=== PATIENT | male | born 1955 | race Caucasian/White ===

== ENCOUNTER → 2022-02-01 | Outpatient (BNVA) | payer OTHER, SELFPAY | PROVIDERS: PCP Internal Medicine; Visit Provider Psychiatry & Neurology Psychiatry | DX: F32.4 Major depressive disorder, single episode, in partial remission (principal); E11.9 Type 2 diabetes mellitus without complications; G47.30 Sleep apnea, unspecified; Z71.89 Other specified counseling; Z99.89 Dependence on other enabling machines and devices | CPT/HCPCS: 90833 ==

== ENCOUNTER → 2022-05-20 11:04 | Outpatient (BNVA) | payer OTHER, SELFPAY | PROVIDERS: PCP Family Medicine; Visit Provider Psychiatry & Neurology Psychiatry | DX: Z13.89 Encounter for screening for other disorder (principal) ==

== ENCOUNTER → 2022-06-20 11:11 | Outpatient (BNVA) | payer OTHER, SELFPAY | PROVIDERS: PCP Family Medicine; Visit Provider Psychiatry & Neurology Psychiatry | DX: Z13.89 Encounter for screening for other disorder (principal) ==

== ENCOUNTER → 2022-07-23 10:34 | Outpatient (BNVA) | payer OTHER, SELFPAY | PROVIDERS: PCP Family Medicine; Visit Provider Psychiatry & Neurology Psychiatry | DX: Z13.89 Encounter for screening for other disorder (principal) ==

== ENCOUNTER → 2022-09-04 11:11 | Outpatient (BNVA) | payer OTHER, SELFPAY | PROVIDERS: PCP Family Medicine; Visit Provider Psychiatry & Neurology Psychiatry ==

== ENCOUNTER 2022-10-18 10:48 | Outpatient (AMB) | payer OTHER, SELFPAY ==
--- NOTE | 2022-10-18 11:23 | MHC.OFFVISPS ---
Intake Intake Visit Reasons: depression Allergies gabapentin Allergy (Verified 02/01/22 11:09) Rash aripiprazole [From Abilify] Adverse Reaction (Verified 06/06/21 10:55) Agitated bupropion [From Wellbutrin SR] Adverse Reaction (Verified 06/06/21 10:55) Agitated Medication List - Last Reconciled 10/27/22 by Giuseppe Gallegos MD atorvastatin 20 mg PO DAILY glipizide ER 10 mg PO BID lamotrigine 200 mg PO DAILY 90 days lisinopril 20 mg PO DAILY lorazepam 1 mg PO BEDTIME PRN modafinil 50 - 100 mg (0.5 - 1 x 100 mg) PO DAILY pioglitazone 15 mg PO QPM sildenafil 50 mg PO DIRECTED trazodone 100 - 200 mg (1 - 2 x 100 mg) PO BEDTIME HPI- Psychiatric Chief Complaint: depression HPI Narrative: Pts h recently was in hospice has sp stimulator seems to be somewhat helpful. Patient has been somewhat overwhelmed dealing with the loss of his partner patient estate. His 's sister had recently come and who had been somewhat verbally aggressive with him. Patient having trouble with flashbacks of recent events his dying when walking at the co-op and flashbacks of when he used to go there. He has the support of his brother with whom he has been talking regularly patient is future oriented he is using low-dose modafinil occasionally 50 mg which he finds helpful in addition to Lamictal no SI back and leg pain generally have improved with spinal stimulator Past Psychiatric History: THE PATIENT HAS A LONG HISTORY OF TREATMENT RESISTANT DEPRESSION HISTORY OF ADD CHRONIC DIFFICULTY TAKING CARE OF HIS OWN NEEDS HISTORY OF ALCOHOL ABUSE STRESSED TAKING CARE OF HIS LONG-TERM PARTNER Mental Status Exam Mental Status Exam Patient Appearance: Well Grooomed Patient Orientation: Person, Place, Time and Situation Level of Consciousness: Awake Patient Behavior: Appropriate and Anxious Mood Description: Depressed, Anxious and Apprehensive Affect Description: Appropriate, Constricted and Anxious Patient Cognition Impaired: No Ability to Follow Directions: Good Speech Pattern: Clear Memory Description: Intact Hallucinations: None Delusions: Not Present Thought Process: Intact and Goal Oriented Thought Content: positive for Goal Oriented, positive for Preoccupation, negative for Suicidal Ideation or negative for Homicidal Ideation Depressive Symptoms: Increased Anxiety, Increased Irritability and Difficulty Concentrating Judgement: Good Judgement and Insight: DENIES SI FEELING MORE SUPPORTED willing to discussed with hospice whether he can receive supportive therapy through hospice or recommendations for grief counseling Assessment and Plan Assessment & Plan (1) ADD (attention deficit disorder) without hyperactivity: Status: Acute Code(s): F98.8 - Other specified behavioral and emotional disorders with onset usually occurring in childhood and adolescence (2) Generalized anxiety disorder: Status: Acute Code(s): F41.1 - Generalized anxiety disorder (3) Major depressive disorder in partial remission: Status: Acute Code(s): F32.4 - Major depressive disorder, single episode, in partial remission Plan Discussed options for psychotherapy support caroline in future if needed has some lorazepam for panic and anxiety occasional use patient knows how to contact this medical technical writer discussed option of partial hospital and recommendations for outpatient counseling Patient with this appropriate grief Counseling and coordination of Care Pt. Self Management counseling: Breathing and Greif counseling Details-Self Mgmt counseling: General issues related to managing grief and loss urged limitation of alcohol use discussed potential for grief counseling manic group basis or individual potentially through hospice Medication management counseling: Effectiveness Diagnosis and Prognosis Counseling: Impact of diagnosis on life functions and Adequacy of current interventions Details: I spent [38] minutes reviewing the record, seeing the patient and documenting in the medical record. Counseling provided to the patient/caregiver as outlined below. Addressed patient/caregiver concerns regarding current medication regime including effective adherence. Addressed patient/caregiver concerns regarding diagnosis and prognosis including accuracy of diagnosis, prognosis over time, impact of diagnosis. Addressed patient/caregiver concerns regarding impact of recent stressors. [facility] Medical History (Updated 06/16/22 @ 19:57 by Giuseppe Gallegos MD) ADD (attention deficit disorder) without hyperactivity Controlled diabetes mellitus type II without complication Depression, major, severe recurrence Generalized anxiety disorder Hypertension Social History: Pts parents are used work at [employer] nature identifies as dye no children 1 brother in [place] Substance History: History of alcoholism denies on I'History of alcoholism denies ongoing drinking Coding Level of Care Code Est Pt Level 3 (19133) Therapy 30m w/E&M (86364) Diagnoses ADD (attention deficit disorder) without hyperactivity F98.8 Generalized anxiety disorder F41.1 Major depressive disorder in partial remission F32.4
== END 2022-10-18 15:09 | disposition home or self-care (01) ==
LOC: HO.HOP 10:48
PROVIDERS: PCP Family Medicine; Visit Provider Psychiatry & Neurology Psychiatry
DX: F98.8 Other specified behavioral and emotional disorders with onset usually occurring in childhood and adolescence (principal); F41.1 Generalized anxiety disorder; F32.4 Major depressive disorder, single episode, in partial remission
CPT/HCPCS: 90833; 99213

== ENCOUNTER → 2022-10-18 10:48 | Outpatient (BNVA) | payer OTHER, SELFPAY | PROVIDERS: PCP Family Medicine; Visit Provider Psychiatry & Neurology Psychiatry ==

== ENCOUNTER → 2022-12-13 12:53 | Outpatient (BNVA) | payer OTHER, SELFPAY | PROVIDERS: PCP Family Medicine; Visit Provider Psychiatry & Neurology Psychiatry ==

== ENCOUNTER 2023-01-22 08:55 | Outpatient (AMB) | payer MEDICARE, SELFPAY ==
--- NOTE | 2023-01-22 09:07 | A.SPINEOV_ITS ---
Intake Intake Visit Reasons: lower back sciatica pain Intake Note: Mr. Garcia is here today c/o low back pain and possible SCS removal. Client Services Administrator Required: No Allergies gabapentin Allergy (Verified 02/01/22 11:09) Rash aripiprazole [From Abilify] Adverse Reaction (Verified 06/06/21 10:55) Agitated bupropion [From Wellbutrin SR] Adverse Reaction (Verified 06/06/21 10:55) Agitated Assessment & Plan Assessment & Plan (1) Failed back syndrome: Code(s): M96.1 - Postlaminectomy syndrome, not elsewhere classified (2) Bilateral lumbar radiculopathy: Code(s): M54.16 - Radiculopathy, lumbar region Plan: Dear Colleague Thank you for referring Sandy Garcia to the office today with a chief complaint of persistent bilateral leg pain. HPI: This 67-year-old male had a previous synovial cyst resection and eventually a spinal cord stimulator placed for a bilateral leg pain. He returned to my new practice for a subsequent evaluation. The spinal cord stimulator is active but is not providing relief. He complains of severe pain down his legs without back pain with sitting and laying down. Walking is done without limitations. He denies weakness or up the active numbness. PMH: ADD, anxiety, depression, diabetes, sleep apnea, hypertension Social history: Nonsmoker. He just lost his partner Physical Exam: Pleasant male. Straight leg raise is negative bilaterally. There are no objective motor or sensory deficits. Radiological Studies: MRI done at [facility] on 05/24/2021 showed no significant nerve compression or stenosis. Impression/Plan: This 67-year-old male continues to complain of bilateral finn mbar radiculopathy despite placement of a spinal cord stimulator. We will repeat an MRI of the lumbar spine after which she will follow-up. We will also obtain flexion-extension x-rays at his next visit. Thank you for allowing me to participate in your patients care. total time spent was 30 minutes in counseling ,coordination of plan, personal review of imaging, surgical decision making and subsequent plan Praveen Barclay MD, PhD Spine Fellowship Trained Neurosurgeon Director, [facility] Orders: Orders MR lumbar spine wo con Today M54.16 - Radiculopathy, lumbar region, M96.1 - Postlaminectomy syndrome, not elsewhere classified Coding Level of Care Code New Pt Level 3 (16601) Diagnoses Failed back syndrome M96.1 Bilateral lumbar radiculopathy M54.16
== END 2023-01-22 09:22 | disposition home or self-care (01) ==
PROVIDERS: PCP Family Medicine; Visit Provider Neurological Surgery
DX: M96.1 Postlaminectomy syndrome, not elsewhere classified (principal); M54.16 Radiculopathy, lumbar region
CPT/HCPCS: 99203; 99213

== ENCOUNTER → 2023-01-22 08:55 | Outpatient (BNVA) | payer OTHER, SELFPAY | PROVIDERS: PCP Family Medicine; Visit Provider Neurological Surgery ==

== ENCOUNTER 2023-02-05 12:32 | Outpatient (REF) | payer MEDICARE, SELFPAY ==
--- NOTE | ~2023-02-05 | XR_ITS ---
EXAMINATION: XR LUMBOSACRAL SPINE WITH OBLIQUES CLINICAL INFORMATION: Low back pain. COMPARISON: None available. TECHNIQUE: 4 views including AP, neutral, flexion and extension of the lumbar spine. FINDINGS: Electrical stimulator pack overlying the right lower quadrant with leads projecting cephalad overlying the lower thoracic spine, with tips incompletely imaged. Facet arthritis at the [id number] lumbar spine. The bones are diffusely demineralized. Atherosclerotic aortic calcifications. Advanced degenerative changes in the imaged lower thoracic. Moderate multilevel lumbar spondylosis with multilevel loss of disc space height. Minimal grade 1 retrolisthesis of L2 on L3, L3 on L4, and L4 on L5. XR/XR lumbar spine 4V min IMPRESSION: Multilevel degenerative changes in the lumbar spine.
== END 2023-02-05 12:33 | disposition home or self-care (01) ==
LOC: HO.HOSX 12:32
PROVIDERS: Visit Provider Physician Assistant
DX: M96.1 Postlaminectomy syndrome, not elsewhere classified (principal); M54.50 Low back pain, unspecified
CPT/HCPCS: 72110; 99212

== ENCOUNTER 2023-02-05 14:56 | Outpatient (AMB) | payer MEDICARE, SELFPAY ==
--- NOTE | 2023-02-05 15:12 | A.SPINEOV_ITS ---
Intake Intake Visit Reasons: mri f/u with xrays Intake Note: Mr. Garcia is here today to discuss the results of his MRI and x-rays. [employer] Required: No Allergies gabapentin Allergy (Verified 02/01/22 11:09) Rash aripiprazole [From Abilify] Adverse Reaction (Verified 06/06/21 10:55) Agitated bupropion [From Wellbutrin SR] Adverse Reaction (Verified 06/06/21 10:55) Agitated Assessment & Plan Assessment & Plan (1) Failed back syndrome: Code(s): M96.1 - Postlaminectomy syndrome, not elsewhere classified Plan Mr. Garcia comes in today as a follow-up patient after being seen by Dr. Barclay for evaluation of continued bilateral leg pain despite spinal cord stimulator implantation and previous synovial cyst resection. Dr. Barclay previously requested that the patient have an MRI of the lumbar spine completed (which the patient decided to have done at [facility]) alongside a set of lumbar spine x-rays to review before being re-evaluated in the office. I reviewed the MRI completed at [place] which shows no changes from his previous MRI. No significant central canal stenosis, no significant exiting nerve root impingement. I did review 1 of the MRI readings which stated that he had significant facet arthropathy of the lumbar spine, but he reported he has atte mpted to address this before via injections without alleviation of symptoms. His x-rays of the lumbar spine completed today show no significant spondylolisthesis or other significant pathology. Unfortunately, Mr. Garcia continues to have persistent bilateral leg pain, which he reports is worse with sitting and lying down. Although he reports these restrictions, he does state he is able to walk multiple miles per day without issue. He reports no pain when exiting a vehicle, no pain when attempting Ese's test bilaterally, and has a negative straight leg raise bilaterally. He ambulates well, and rises from a seated position without difficulty. His sensation is grossly intact. No neurological deficits noted on exam. At this time I believe it is best that Mr. Garcia be referred to Pain Management for evaluation / suggestions for chronic pain relief, as there is no obvious neurosurgical intervention seen on imaging at this time. This patient's imaging and plan were reviewed with Dr. Barclay who is in agreement. Total amount of time spent in this visit was 35 minutes in discussion of symptoms, MRI / XR imaging results and subsequent plan of care Jeronimo Barclay MD,PhD [facility] Orders: Orders XR lumbar spine 4V min Today M54.50 - Low back pain, unspecified Referrals Pain Management Referral M96.1 - Postlaminectomy syndrome, not elsewhere classified Coding Level of Care Code Est Pt Level 4 (70138) Diagnoses Failed back syndrome M96.1
== END 2023-02-05 15:45 | disposition home or self-care (01) ==
PROVIDERS: PCP Family Medicine; Visit Provider Neurological Surgery
DX: M96.1 Postlaminectomy syndrome, not elsewhere classified (principal)
CPT/HCPCS: 99214

== ENCOUNTER 2023-02-14 13:45 | Outpatient (AMB) | payer OTHER, SELFPAY ==
--- NOTE | 2023-02-14 15:16 | A.OFFPSYCH_ITS ---
Intake Intake Visit Reasons: depression Allergies gabapentin Allergy (Verified 02/17/23 08:59) Rash aripiprazole [From Abilify] Adverse Reaction (Verified 02/17/23 08:59) Agitated bupropion [From Wellbutrin SR] Adverse Reaction (Verified 02/17/23 08:59) Agitated HPI- Psychiatric Chief Complaint: depression HPI Narrative: Patient seen psychiatric follow-up patient continue to interim abuse opiates previously prescribed for his partner. The patient states he has a use but at a relatively low dose denies oversedation we have discussed repeatedly the risk of ongoing psychological and physical addiction. The patient has agreed to start seeing a therapist Dr. Alexandria Bartholomew his mood is described as generally okay trying to integrate what is going on his life he has been fixing up the house in fortunately has become tied up with his misuse of prescribed opiates there is past history of alcohol abuse he denies thoughts of self-harm plans on overdose Past Psychiatric History: THE PATIENT HAS A LONG HISTORY OF TREATMENT RESISTANT DEPRESSION HISTORY OF ADD CHRONIC DIFFICULTY TAKING CARE OF HIS OWN NEEDS HISTORY OF ALCOHOL ABUSE STRESSED TAKING CARE OF HIS LONG-TERM PARTNER Mental Status Exam Mental Status Exam Patient Appearance: Well Grooomed Patient Orientation: Person, Place, Time and Situation Level of Consciousness: Awake Patient Behavior: Appropriate and Anxious Mood Description: Calm and Anxious Affect Description: Appropriate and Constricted Patient Cognition Impaired: No Ability to Follow Directions: Good Speech Pattern: Clear Memory Description: Intact Hallucinations: None Delusions: Not Present Thought Process: Intact and Goal Oriented Thought Content: positive for Goal Oriented, positive for Preoccupation, negative for Suicidal Ideation or negative for Homicidal Ideation Depressive Symptoms: Increased Anxiety, Increased Irritability, Low Self Esteem and Difficulty Concentrating Judgement: Good Judgement and Insight: Patient limited insight regarding his misuse of prescribed oral opiates denies any thoughts of self-harm was open to discussion regarding possible use of Suboxone and also the possible euphoric of the effects of using opiates patient has had longstanding treatment resistant depression Assessment and Plan Assessment & Plan (1) Chronic pain syndrome: Status: Acute Code(s): G89.4 - Chronic pain syndrome (2) Failed back syndrome: Status: Acute Code(s): M96.1 - Postlaminectomy syndrome, not elsewhere classified (3) Bilateral lumbar radiculopathy: Status: Acute Code(s): M54.16 - Radiculopathy, lumbar region (4) ADD (attention deficit disorder) without hyperactivity: Status: Acute Code(s): F98.8 - Other specified behavioral and emotional disorders with onset usually occurring in childhood and adolescence (5) Generalized anxiety disorder: Status: Acute Code(s): F41.1 - Generalized anxiety disorder (6) Major depressive disorder in partial remission: Status: Acute Code(s): F32.4 - Major depressive disorder, single episode, in partial remission (7) Sleep apnea with use of continuous positive airway pressure (CPAP): Status: Acute Code(s): G47.30 - Sleep apnea, unspecified Plan Patient with chronic difficulty with sleep chronic pain discussed use of low- dose amitriptyline continue Lamictal would benefit from having Narcan urged consideration of Suboxone patient denies any suicidal plan or intent consider Suboxone consult recovery mtgs risks of tolerance and dependance Medications: New amitriptyline 10 - 20 mg (1 - 2 x 10 mg) PO BEDTIME 60 tabs 1RF Discontinued modafinil Discontinued Reason: Doctor's Order 50 - 100 mg (0.5 - 1 x 100 mg) PO DAILY 30 tabs 1RF Counseling and coordination of Care Details-Self Mgmt counseling: Issues related to self management of emotional state dealing with grief issues which are mostly coming up now his memories are stimulated in appropriate manner Diagnosis and Prognosis Counseling: Problematic behaviors secondary to diagnosis and Adequacy of current interventions Details: I spent [38] minutes reviewing the record, seeing the patient and documenting in the medical record. Counseling provided to the patient/caregiver as outlined below. Addressed patient/caregiver concerns regarding current medication regime including effective adherence. Addressed patient/caregiver concerns regarding diagnosis and prognosis including accuracy of diagnosis, prognosis over time, impact of diagnosis. Addressed patient/caregiver concerns regarding impact of recent stressors. [facility] Medical History ADD (attention deficit disorder) without hyperactivity Generalized anxiety disorder Depression, major, severe recurrence Controlled diabetes mellitus type II without complication Hypertension Social History Alcohol intake: current Alcohol intake frequency: 3 or more drinks per day Alcohol type: beer Patient Tobacco Use Status: Former Tobacco user Tobacco use type: Cigarette Social History: Pts parents are used work at [employer] nature identifies as dye no children 1 brother in [place] Substance History: History of alcoholism denies on I'History of alcoholism denies ongoing drinking Coding Level of Care Code Est Pt Level 3 (34967) Therapy 30m w/E&M (03528) Diagnoses Chronic pain syndrome G89.4 Failed back syndrome M96.1 Bilateral lumbar radiculopathy M54.16 ADD (attention deficit disorder) without hyperactivity F98.8 Generalized anxiety disorder F41.1 Major depressive disorder in partial remission F32.4 Sleep apnea with use of continuous positive airway pressure (CPAP) G47.30
== END 2023-02-14 15:24 | disposition home or self-care (01) ==
LOC: HO.HOP 13:46
PROVIDERS: PCP Family Medicine; Visit Provider Psychiatry & Neurology Psychiatry
DX: G89.4 Chronic pain syndrome (principal); M96.1 Postlaminectomy syndrome, not elsewhere classified; M54.16 Radiculopathy, lumbar region; F98.8 Other specified behavioral and emotional disorders with onset usually occurring in childhood and adolescence; F41.1 Generalized anxiety disorder; F32.4 Major depressive disorder, single episode, in partial remission; G47.30 Sleep apnea, unspecified
CPT/HCPCS: 90833; 99213

== ENCOUNTER → 2023-02-14 13:45 | Outpatient (BNVA) | payer MEDICARE, SELFPAY | PROVIDERS: PCP Family Medicine; Visit Provider Psychiatry & Neurology Psychiatry ==

== ENCOUNTER 2023-02-17 08:27 | Outpatient (AMB) | payer MEDICARE, SELFPAY ==
--- NOTE | 2023-02-17 08:53 | A.OFFVIS_ITS ---
Intake Vital Signs 3 02/17/23 09:00 Height 5 ft 3 in Weight 187 lb 2 oz BMI 33.1 BP 149/85 H Blood Pressure Location Rt brachial Position Sitting Pulse 89 Pulse Source Pulse Oximeter Pulse Oximetry (%) 100 Oxygen Delivery Method Room Air Intake Visit Reasons: BILATERAL LEG PAIN/CONFIRMED Intake Note: Pain today 6/10 Fundraising Manager Required: No Accompanied by: Self / Same As Patient Allergies gabapentin Allergy (Verified 02/17/23 08:59) Rash aripiprazole [From Abilify] Adverse Reaction (Verified 02/17/23 08:59) Agitated bupropion [From Wellbutrin SR] Adverse Reaction (Verified 02/17/23 08:59) Agitated HPI BILATERAL LEG PAIN/CONFIRMED 2 HPI0 Details Patient is a pleasant 67 years old male with history of previous synovial cyst resection, laminectomy and [employer] SCS implant in 03/2022 presents today for evaluation of low back pain that radiates to his legs laterally. Patient reports his SCS device was reprogrammed 15 times last month without any improvement in his symptoms. It was surgically implanted by Dr. Barclay and patient is considering to remove it as it is active but not providing him any pain relief. His pain is worse at night while sleeping with laying down and with prolonged sitting or standing during the day. Patient rates his pain >8/10. Pain negatively affects his daily activities, functioning, sleep, social activities, mood and quality of life. He ambulates without any limitations and at times wakes in the middle of the night to walk to alleviate his leg symptoms. L:umbar spine MRI is noted below, patient reports he was deemed non surgical for any additional surgery at this time. Denies any fever, abdominal or groin pain, weight loss, weakness, bladder or bowel dysfunction or saddle anesthesia. Location Waist down, radiates to bilateral legs, worse on right leg Duration Chronic pain > 2 years Characteristics of symptom or complaint Aching, dull, heavy, tight, burning, aching, pinching, squeezing Aggravating or associated factors Sleeping, sitting, Relieving factors Standing, stretching, amitriptyline, pregabalin, gabapentin- no relief Treatment Back surgery, injections, lumbar SCS [employer] 03/2022-no relief [facility] Medical History (Updated 02/17/23 @ 10:02 by BELÉN Shah) ADD (attention deficit disorder) without hyperactivity Generalized anxiety disorder Depression, major, severe recurrence Controlled diabetes mellitus type II without complication Hypertension Social History (Updated 02/17/23 @ 09:02 by Dia Duarte) Alcohol intake: current Alcohol intake frequency: 3 or more drinks per day Alcohol type: beer Patient Tobacco Use Status: Former Tobacco user Tobacco use type: Cigarette Substance Use Type Other:: THC/CBD drops before bedtime Substance Use Frequency: Daily Review of Systems Const All systems reviewed & are unremarkable except as noted in HPI and below Physical Exam Vital Signs: Last Vital Signs Pulse 89 02/17/23 09:00 BP 149/85 H 02/17/23 09:00 Pulse Ox 100 02/17/23 09:00 Oxygen Delivery Method Room Air 02/17/23 09:00 BMI result Body Mass Index 33.1 General: Appears afebrile. Alert and oriented. Mood and affect appropriate. Follows and participates in conversation appropriately. Respiratory effort is unlabored. No cough. Able to transition from sit to stand unassisted. Ambulates with bilaterally normal heel strike and toe off. Back/Spine/Pelvis Other: Lumbar ROM limited. Can flex forward to 60-70 degrees and extend to 10-15 degrees before experiencing lumbar pain. No midline tenderness to palpation in the lumbar spine. Lumbar extension and flexion reproduces mild symptoms. Demonstrates 5/5 strength of quadriceps bilaterally as well as flexion/dorsiflexion of bilateral feet against resistance. 2+ pedal pulses bilaterally. Seated straight leg rise with dorsiflexion negative bilaterally. +1 patellar and diminished achilles reflexes bilaterally. Facet loading test positive bilaterally. No groin pain with I/E hip rotations. Valsalva maneuver negative. Back: other Cervical Spine: cervical muscular tenderness and No Cervical spine tenderness Thoracic/Lumbar Spine: thoracic and lumbar spine normal to inspection, Thoracic/lumbar spine scar(s) (x2, well healed), Lasegue's sign negative, straight leg raise negative bilaterally, pain with thoraco-lumbar ROM, paraspinal muscle tenderness, thoraco-lumbar ROM limited, No thoracic spinal tenderness and lumbar spinal tenderness Pelvis: buttock tenderness bilaterally and no sciatic notch tenderness Sacroiliac joints: bilaterally (Crow's reproduces lateral thigh pain, not back pain. Stinchfield neg.) tender to palpation; by compression of iliac crest and not passive hyperextion of lower ext Neuro General: moves all extremities and Normal light touch and pain sensation Results Reviewed Results Reviewed: XR LUMBOSACRAL SPINE WITH OBLIQUES 02/05/23 CLINICAL INFORMATION: Low back pain. FINDINGS: Electrical stimulator pack overlying the right lower quadrant with leads projecting cephalad overlying the lower thoracic spine, with tips incompletely imaged. Facet arthritis at the [id number] lumbar spine. The bones are diffusely demineralized. Atherosclerotic aortic calcifications. Advanced degenerative changes in the imaged lower thoracic. Moderate multilevel lumbar spondylosis with multilevel loss of disc space height. Minimal grade 1 retrolisthesis of L2 on L3, L3 on L4, and L4 on L5. IMPRESSION: Multilevel degenerative changes in the lumbar spine. Assessment & Plan Assessment & Plan (1) Failed back syndrome: Code(s): M96.1 - Postlaminectomy syndrome, not elsewhere classified (2) Bilateral lumbar radiculopathy: Code(s): M54.16 - Radiculopathy, lumbar region (3) Chronic pain syndrome: Code(s): G89.4 - Chronic pain syndrome (4) Lumbar degenerative disc disease: Code(s): M51.36 - Other intervertebral disc degeneration, lumbar region (5) Lumbar spondylosis: Code(s): M47.816 - Spondylosis without myelopathy or radiculopathy, lumbar region Plan 1. Follow up with Dr. Barclay to surgically remove [employer] as planned. 2. Schedule Caudal JOSE LUIS with catheter with sedation and fluoroscopy for failed back syndrome. We also discussed neuromodulation with ITDD pain pump trial. Expectations, risks and benefits were reviewed. Patient is aware he will be contacted to schedule this procedure. All questions were answered and the patient is in agreement of plan. Follow-up after injections and sooner as needed. Coding Level of Care Code New Pt Level 4 (64176) Diagnoses Failed back syndrome M96.1 Bilateral lumbar radiculopathy M54.16 Chronic pain syndrome G89.4 Lumbar degenerative disc disease M51.36 Lumbar spondylosis M47.816
[2023-02-17 09:00] VITALS: BP 149/85; PULSE 89; O2SAT 100; BMI 33.1
== END 2023-02-17 08:49 | disposition home or self-care (01) ==
PROVIDERS: PCP Family Medicine; Referring Provider Physician Assistant; Visit Provider Nurse Practitioner Family
DX: G89.4 Chronic pain syndrome (principal); M96.1 Postlaminectomy syndrome, not elsewhere classified; M54.16 Radiculopathy, lumbar region; M51.36 Other intervertebral disc degeneration, lumbar region; M47.816 Spondylosis without myelopathy or radiculopathy, lumbar region
CPT/HCPCS: 99204

== ENCOUNTER → 2023-02-17 08:27 | Outpatient (BNVA) | payer MEDICARE, SELFPAY | PROVIDERS: PCP Family Medicine; Referring Provider Physician Assistant; Visit Provider Nurse Practitioner Family | DX: M96.1 Postlaminectomy syndrome, not elsewhere classified (principal); M54.16 Radiculopathy, lumbar region; M51.36 Other intervertebral disc degeneration, lumbar region; M47.816 Spondylosis without myelopathy or radiculopathy, lumbar region; G89.4 Chronic pain syndrome | CPT/HCPCS: 99202 ==

== ENCOUNTER 2023-03-05 14:49 | Outpatient (AMB) | payer MEDICARE, SELFPAY ==
--- NOTE | 2023-03-05 15:09 | A.SPINEOV_ITS ---
Intake Intake Visit Reasons: spinal stimulator removal consult Allergies gabapentin Allergy (Verified 02/17/23 08:59) Rash aripiprazole [From Abilify] Adverse Reaction (Verified 02/17/23 08:59) Agitated bupropion [From Wellbutrin SR] Adverse Reaction (Verified 02/17/23 08:59) Agitated Assessment & Plan Assessment & Plan (1) Chronic pain syndrome: Code(s): G89.4 - Chronic pain syndrome (2) Failed back syndrome: Code(s): M96.1 - Postlaminectomy syndrome, not elsewhere classified (3) Spinal cord stimulator dysfunction: Code(s): T85.192A - Other mechanical complication of implanted electronic neurostimulator of spinal cord electrode (lead), initial encounter Plan Dear colleague, On 03/06/2023, I saw for follow-up came Radha. He suffering from failed back syndrome and had a spinal cord stimulator placed in the past. States that he turned his spinal cord stimulator off which improved his symptoms and therefore he wants to have the spinal cord stimulator removed. He discussed this with the pain management team and they agree. I scheduled him for May 22, 2023 to remove the implant. Praveen Barclay MD, PhD Sp[facility] Trained Neurosurgeon Director, [facility] Coding Level of Care Code Est Pt Level 2 (82998) Diagnoses Chronic pain syndrome G89.4 Failed back syndrome M96.1 Spinal cord stimulator dysfunction T85.192A
== END 2023-03-05 15:25 | disposition home or self-care (01) ==
PROVIDERS: PCP Family Medicine; Visit Provider Neurological Surgery
DX: G89.4 Chronic pain syndrome (principal); M96.1 Postlaminectomy syndrome, not elsewhere classified; T85.192A Other mechanical complication of implanted electronic neurostimulator of spinal cord electrode (lead), initial encounter
CPT/HCPCS: 99212

== ENCOUNTER → 2023-03-05 14:49 | Outpatient (BNVA) | payer MEDICARE, SELFPAY | PROVIDERS: PCP Family Medicine; Visit Provider Neurological Surgery | DX: T85.192A Other mechanical complication of implanted electronic neurostimulator of spinal cord electrode (lead), initial encounter (principal); M96.1 Postlaminectomy syndrome, not elsewhere classified; G89.4 Chronic pain syndrome | CPT/HCPCS: 99212 ==

== ENCOUNTER 2023-03-14 10:19 | Day surgery (SDC) | payer MEDICARE, SELFPAY ==
[2023-03-12 14:05] VITALS: BMI 33.1
--- NOTE | 2023-03-13 13:16 | P.CONAN_ITS ---
Documented by User: Felisha Smith NP 03/13/23 13:17 HPI - Anesthesia Eval Consult details Narrative: 67yo M for Caudal Epidural Steroid Injection with Catheter PMFSH Active Problems Active Problems: All Active Problems (Updated 03/05/23 @ 15:10 by Praveen Barclay MD, PhD) Spinal cord stimulator dysfunction (Acute) Lumbar spondylosis (Acute) Lumbar degenerative disc disease (Acute) Chronic pain syndrome (Acute) Lumbago (Acute) Failed back syndrome (Acute) Bilateral lumbar radiculopathy (Acute) ADD (attention deficit disorder) without hyperactivity (Acute) Generalized anxiety disorder (Acute) Major depressive disorder in partial remission (Acute) Depression, major, severe recurrence (Acute) Controlled diabetes mellitus type II without complication (Acute) Sleep apnea with use of continuous positive airway pressure (CPAP) (Acute) Hypertension (Acute) Past Medical History Medical History ADD (attention deficit disorder) without hyperactivity Generalized anxiety disorder Depression, major, severe recurrence Controlled diabetes mellitus type II without complication Hypertension Social History Social History Alcohol intake: current Alcohol intake frequency: 3 or more drinks per day Alcohol type: beer Patient Tobacco Use Status: Former Tobacco user Tobacco use type: Cigarette Use of substances other than those prescribed or required for medical reasons: Yes Are you DNR?: No Advance Directives: No Advance Directives Information Provided: Yes Meds Allergies Allergy/AdvReac Type Severity Reaction Status Date / Time gabapentin Allergy Rash Verified 02/17/23 08:59 aripiprazole [From Abilify] AdvReac Agitated Verified 02/17/23 08:59 bupropion AdvReac Agitated Verified 02/17/23 08:59 [From Wellbutrin SR] Home Medications Medication Instructions Recorded Confirmed Last Taken Type atorvastatin 20 mg tablet 20 mg PO DAILY 02/01/22 06/20/22 03/14/23 History glipizide 10 mg tablet, extended 10 mg PO BID 02/01/22 06/20/22 03/14/23 History release 24 hr pioglitazone 15 mg tablet 15 mg PO QPM 02/01/22 06/20/22 Unknown History sildenafil 100 mg tablet 50 mg PO DIRECTED 02/01/22 06/20/22 Unknown History lisinopril 40 mg tablet 40 mg PO DAILY 02/17/23 03/14/23 History Exam Height,Weight and Vital Signs: Height 5 ft 3 in Weight 84.822 kg Assessment and Plan Assessment Anesthesia Assessment: Chart Reviewed Documented by User: Nika Rodriguez MD 03/14/23 12:27 [facility] Past Medical History Medical History ADD (attention deficit disorder) without hyperactivity Generalized anxiety disorder Depression, major, severe recurrence Controlled diabetes mellitus type II without complication Hypertension Surgical History History of Problems with Anesthesia: No Social History Social History Alcohol intake: current Alcohol intake frequency: 3 or more drinks per day Alcohol type: beer Patient Tobacco Use Status: Former Tobacco user Tobacco use type: Cigarette Use of substances other than those prescribed or required for medical reasons: Yes Are you DNR?: No Advance Directives: No Advance Directives Information Provided: Yes Meds Allergies Allergy/AdvReac Type Severity Reaction Status Date / Time gabapentin Allergy Rash Verified 02/17/23 08:59 aripiprazole [From Abilify] AdvReac Agitated Verified 02/17/23 08:59 bupropion AdvReac Agitated Verified 02/17/23 08:59 [From Wellbutrin SR] Home Medications Medication Instructions Recorded Confirmed Last Taken Type atorvastatin 20 mg tablet 20 mg PO DAILY 02/01/22 06/20/22 03/14/23 History glipizide 10 mg tablet, extended 10 mg PO BID 02/01/22 06/20/22 03/14/23 History release 24 hr pioglitazone 15 mg tablet 15 mg PO QPM 02/01/22 06/20/22 Unknown History sildenafil 100 mg tablet 50 mg PO DIRECTED 02/01/22 06/20/22 Unknown History lisinopril 40 mg tablet 40 mg PO DAILY 02/17/23 03/14/23 History Exam Airway Mallampati Class: III TM Dist: >3cm Neck ROM: Full Loose/Missing/Broken Teeth: No Heart: RRR Lungs: CTA Assessment and Plan Assessment Anesthesia Assessment: Anesthesia Plan Discussed Final Anesthetic Review History of Problems with Anesthesia: No NPO: Yes ASA Class: III Final Preanesthetic Review: Meds/Allgs Chart Reviewed, Consent Obtained/Reviewed and Anes Risks/Benef Reviewed Patient Risk: Intermediate Procedure Risk: Low Anesthetic Plan Anesthetic Plan: MAC: Disposition: Standard PACU
--- NOTE | ~2023-03-14 | FL_ITS ---
EXAMINATION: XR FLUOROSCOPY WITH IMAGES CLINICAL INFORMATION: Caudal injection. COMPARISON: None available. TECHNIQUE: Fluoroscopy Supervised By: Dr. Ramon Goldberg. Fluoroscopy Time: 0.1 minute. Cumulative Dose: 12.23 mGy. DAP: 3.336 Gycm2. Images: 2. FINDINGS: Image demonstrates needle projecting over the lower sacral spinal canal FL/FL guidance in OR IMPRESSION: Fluoroscopy guidance for pain management procedure
[2023-03-14 10:55] VITALS: BMI 33.0
[2023-03-14 10:58] VITALS: BP 144/85; PULSE 88; RESP 16; TEMP 36.6; O2SAT 97
[2023-03-14 11:12] LABS: Glucose, Whole Blood 141 mg/dL (60-115)
[2023-03-14] MEDS: Lactated Ringers 1,000 ML 100 ML IVCONT (11:13)
--- NOTE | 2023-03-14 14:17 | MHC.SHP ---
Pre-Procedural Eval Section A Date of Service: 03/14/23 The patient is an INPATIENT: No Changes since office visit: Yes Patient answered all questions The History & Physical has been completed within 30 days and I have reviewed it.: No Section B Chief Complaint: Postlaminectomy syndrome, not elsewhere classified Details of Present Illness: as above Relevant Family History (Specify if Yes): No Relevant Social History: None Present Medications: None Medical History: No relevant PMH History of Previous Operations: No relevant previous surgery Allergies: Allergies Allergy/AdvReac Type Severity Reaction Status Date / Time gabapentin Allergy Rash Verified 02/17/23 08:59 aripiprazole [From Abilify] AdvReac Agitated Verified 02/17/23 08:59 bupropion AdvReac Agitated Verified 02/17/23 08:59 [From Wellbutrin SR] Review of Systems Sugical H&P ROS: Negative: Constitution, Cardiovascular, Neurological, Hem-Onc, Allergic/Immunologic, Gastrointestinal, Genitourinary, Integumentary and Eyes/Ears/Nose/Throat and Yes, Specify: Respiratory (AARON on CPAP), Psychiatric ( major depressive disorder), Musculoskeletal ( postlaminectomy syndrome) and Endocrine ( diabetes) Exam Surgical H&P Exam: Normal: HEENT, Normal: Heart, Normal: Lungs, Normal: Extremities, Normal: Abdomen, Normal: Skin and Normal: Neurological Plan Diagnosis/Plan: Unchanged I have reviewed the history and physical and performed a pertinent physical examination on my patient. No changes have occurred unless specified. Time Spent With Patient Time: Total time managing care of this patient today _5___ minutes.
--- NOTE | 2023-03-14 15:04 | PM.OP ---
Brief Operative Note Date of Service: 03/14/23 Pre-op diagnosis: Postlaminectomy syndrome Post-op diagnosis: same Procedure: caudal epidural steroid injection with catheter Surgeon: Ramon Goldberg MD Anesthesia: MAC Was an Director Of Institutional Research used for this Procedure?: No Estimated blood loss (mL): 0 Pathology: none sent Condition: stable Disposition: PACU
--- NOTE | 2023-03-14 15:06 | W.PM.OPN ---
Operative Note Operative Note Date of Service: 03/14/23 Narrative: caudal epidural steroid injection with catheter. Informed consent was explained to the patient. All questions were explained and answered. The patient was taken inside of the operating room where he was positioned prone on operating table.. Time-out was performed delineating patient's name and date of , correct site, side, the nature of the procedure, patient's allergy, preoperative antibiotic if needed, need for VT prophylaxis.. All operating room staff was participating in OR time-out procedure. time-out was performed, [place] [employer] monitors were applied and patient was deeply sedated. The lower back upper buttocks and intergluteal crease were prepped with ChloraPrep twice and draped with sterile adhesive utility towels. C-arm was brought of the operating field and picture of patient's pelvis was demonstrated on the screen. The symphys pubis was superimposed on midline sacral bone. The sacral hiatus was chosen as the target of the injection. 2.5 cm below the level of the sacral hiatus 18 gauge 10 cm Touhy needle was inserted through the skin wheal which was previously raised with 1% lidocaine. The needle advanced to were the sacral hiatus and caudal canal under intermittent anterior posterior and lateral views. When needle entered the sacral canal injection of the contrast was performed demonstrating epidural space. After that 22 gauge Epidural catheter was inserted through the needle and was advanced into caudal canal and ventrally into the lumbar epidural space approximately at L5 projection. Injection of the contrast was performed demonstrating contrast in the anterior epidural space. After that 30 mL of preservative-free normal saline was injected into the catheter. After that lidocaine preservative-free 1% 6cc mixed with Kenalog 40 mg was injected into the catheter. Upon completion of this injection the needle was withdrawn with catheter en mass, the tip of the catheter was intact. The dressing 4 x 4 with bacitracin was applied to the area of the needle insertion, the patient was awaken, taken outside to the operating room to recovery room where he recovered uneventfully.
[2023-03-14 15:10] VITALS: BP 119/67; PULSE 86; RESP 16; TEMP 36.5; O2SAT 98
[2023-03-14 15:25] VITALS: BP 120/75; PULSE 79; RESP 16; TEMP 36.5; O2SAT 97
== END 2023-03-14 15:34 | disposition home or self-care (01) ==
PROVIDERS: PCP Family Medicine; Visit Provider Anesthesiology
PROC: 3E0R3GC Introduction of Other Therapeutic Substance into Spinal Canal, Percutaneous Approach (ICD-10-PCS; CPT 62322; principal; 2023-03-14 12:30)
DX: M96.1 Postlaminectomy syndrome, not elsewhere classified (principal); M54.16 Radiculopathy, lumbar region; G89.4 Chronic pain syndrome; M51.36 Other intervertebral disc degeneration, lumbar region; M47.816 Spondylosis without myelopathy or radiculopathy, lumbar region; M79.605 Pain in left leg; M79.604 Pain in right leg; I10 Essential (primary) hypertension; E11.9 Type 2 diabetes mellitus without complications; F98.8 Other specified behavioral and emotional disorders with onset usually occurring in childhood and adolescence; F33.2 Major depressive disorder, recurrent severe without psychotic features; F41.1 Generalized anxiety disorder; Z88.8 Allergy status to other drugs, medicaments and biological substances; Z87.891 Personal history of nicotine dependence
CPT/HCPCS: 62323; 82947; J2704; J3010; J3301; Q9967

== ENCOUNTER → 2023-03-14 10:19 | Outpatient (BNV) | payer MEDICARE, SELFPAY | PROVIDERS: PCP Family Medicine; Visit Provider Anesthesiology | DX: M96.1 Postlaminectomy syndrome, not elsewhere classified (principal) | CPT/HCPCS: 62323 ==

== ENCOUNTER 2023-03-28 11:32 | Outpatient (AMB) | payer OTHER, SELFPAY ==
--- NOTE | 2023-03-28 12:14 | A.OFFPSYCH_ITS ---
Intake Intake Visit Reasons: depression Allergies gabapentin Allergy (Verified 02/17/23 08:59) Rash aripiprazole [From Abilify] Adverse Reaction (Verified 02/17/23 08:59) Agitated bupropion [From Wellbutrin SR] Adverse Reaction (Verified 02/17/23 08:59) Agitated HPI- Psychiatric Chief Complaint: depression HPI Narrative: patient is a 67-year-old male long history of dysthymia with intermittent significant worsening dips. He has been more depressed and ruminating he does drink a few drinks a day has been taking 1 dose of p.o. narcotics denies any intent for self-harm have recommended substance abuse treatment [facility] which to this point the patient has not been willing to do. He does continue on Lamictal he states he is future oriented has routine and is connected with others and he has been seeing a therapist Dr. Alexandria Bartholomew and has found this quite helpful has been open to the possibility of Suboxone patient continues on Lamictal he is trying to see his life without his long-term partner Past Psychiatric History: THE PATIENT HAS A LONG HISTORY OF TREATMENT RESISTANT DEPRESSION HISTORY OF ADD CHRONIC DIFFICULTY TAKING CARE OF HIS OWN NEEDS HISTORY OF ALCOHOL ABUSE STRESSED TAKING CARE OF HIS LONG-TERM PARTNER Assessment and Plan Assessment & Plan (1) Spinal cord stimulator dysfunction: Status: Acute Code(s): T85.192A - Other mechanical complication of implanted electronic neurostimulator of spinal cord electrode (lead), initial encounter (2) Lumbar degenerative disc disease: Status: Acute Code(s): M51.36 - Other intervertebral disc degeneration, lumbar region (3) ADD (attention deficit disorder) without hyperactivity: Status: Acute Code(s): F98.8 - Other specified behavioral and emotional disorders with onset usually occurring in childhood and adolescence (4) Generalized anxiety disorder: Status: Acute Code(s): F41.1 - Generalized anxiety disorder (5) Depression, major, severe recurrence: Status: Acute Code(s): F33.2 - Major depressive disorder, recurrent severe without psychotic features Plan Urged dec alcohol ck lft discussed spravato ? suboxone woukld benefit from dual dx ?php ck labs if patient to feel unsafe discussed options for inpatient treatment crisis team discussed options for S ketamine Orders: Orders Comprehensive Met. Panel 03/28/23 F41.1 - Generalized anxiety disorder, F33.2 - Major depressive disorder, recurrent severe without psychotic features Counseling and coordination of Care Pt. Self Management counseling: Kendallif counseling Medication management counseling: Effectiveness, Side effects and Dosing range Details: I spent [] minutes reviewing the record, seeing the patient and documenting in the medical record. Counseling provided to the patient/caregiver as outlined below. Addressed patient/caregiver concerns regarding current medication regime including effective adherence. Addressed patient/caregiver concerns regarding diagnosis and prognosis including accuracy of diagnosis, prognosis over time, impact of diagnosis. Addressed patient/caregiver concerns regarding impact of recent stressors. [facility] Medical History ADD (attention deficit disorder) without hyperactivity Generalized anxiety disorder Depression, major, severe recurrence Controlled diabetes mellitus type II without complication Hypertension Social History Alcohol intake: current Alcohol intake frequency: 3 or more drinks per day Alcohol type: beer Patient Tobacco Use Status: Former Tobacco user Tobacco use type: Cigarette Social History: Pts parents are used work at [employer] nature identifies as dye no children 1 brother in [place] Substance History: History of alcoholism denies on I'History of alcoholism denies ongoing drinking Coding Level of Care Code Est Pt Level 3 (27622) Therapy 30m w/E&M (35260) Diagnoses Spinal cord stimulator dysfunction T85.192A Lumbar degenerative disc disease M51.36 ADD (attention deficit disorder) without hyperactivity F98.8 Generalized anxiety disorder F41.1 Depression, major, severe recurrence F33.2
== END 2023-03-28 12:16 | disposition home or self-care (01) ==
LOC: HO.HOP 11:32
PROVIDERS: PCP Family Medicine; Visit Provider Psychiatry & Neurology Psychiatry
DX: T85.192A Other mechanical complication of implanted electronic neurostimulator of spinal cord electrode (lead), initial encounter (principal); M51.36 Other intervertebral disc degeneration, lumbar region; F98.8 Other specified behavioral and emotional disorders with onset usually occurring in childhood and adolescence; F41.1 Generalized anxiety disorder; F33.2 Major depressive disorder, recurrent severe without psychotic features
CPT/HCPCS: 90833; 99213

== ENCOUNTER → 2023-03-28 11:32 | Outpatient (BNVA) | payer MEDICARE, SELFPAY | PROVIDERS: PCP Family Medicine; Visit Provider Psychiatry & Neurology Psychiatry | DX: F33.2 Major depressive disorder, recurrent severe without psychotic features (principal); F41.1 Generalized anxiety disorder; F98.8 Other specified behavioral and emotional disorders with onset usually occurring in childhood and adolescence; T85.192A Other mechanical complication of implanted electronic neurostimulator of spinal cord electrode (lead), initial encounter; M51.36 Other intervertebral disc degeneration, lumbar region | CPT/HCPCS: 90833; 99212 ==

== ENCOUNTER 2023-04-18 08:40 | Outpatient (AMB) | payer MEDICARE, SELFPAY ==
--- NOTE | 2023-04-18 08:52 | MHC.OFFVIS ---
Intake Vital Signs 04/18/23 08:55 Height 5 ft 3 in Weight 188 lb BMI 33.3 BP 120/83 Blood Pressure Location Rt brachial Position Sitting Pulse 107 H Pulse Source Pulse Oximeter Pulse Oximetry (%) 98 Oxygen Delivery Method Room Air Intake Visit Reasons: S/p Caudal JOSE LUIS w/ Catheter 03/14/23/confirmed Intake Note: Pain today 4/10 Rosin Barrel Filler Required: No Accompanied by: Self / Same As Patient Allergies gabapentin Allergy (Verified 04/18/23 08:56) Rash aripiprazole [From Abilify] Adverse Reaction (Verified 04/18/23 08:56) Agitated bupropion [From Wellbutrin SR] Adverse Reaction (Verified 04/18/23 08:56) Agitated HPI HPI Comments History of Present Illness Details Patient presents today to assess response to Caudal JOSE LUIS with catheter on 03/14/[address] Goldberg. Patient reports 100% pain relief for 2 days and ongoing 50-60% pain relief. He reports improved bilateral leg pain, sitting has improved significantly but continues to have significant pain at bedtime and unable to sleep through the night due to pain. He reports tenderness in the battery pocket site. Patient has SCS implant removal schedule on 05/22/[address] Barclay. Denies any recent cough, cold, infection, fever or other significant changes in medical history since last office visit. Past Procedures: 03/14/23: Caudal JOSE LUIS with [id number]% ongoing pain relief PRIOR: Patient is a pleasant 67 years old male with history of previous synovial cyst resection, laminectomy and [employer] SCS implant in 03/2022 presents today for evaluation of low back pain that radiates to his legs laterally. Patient reports his SCS device was reprogrammed 15 times last month without any improvement in his symptoms. It was surgically implanted by Dr. Barclay and patient is considering to remove it as it is active but not providing him any pain relief. His pain is worse at night while sleeping with laying down and with prolonged sitting or standing during the day. Patient rates his pain >8/10. Pain negatively affects his daily activities, functioning, sleep, social activities, mood and quality of life. He ambulates without any limitations and at times wakes in the middle of the night to walk to alleviate his leg symptoms. L:umbar spine MRI is noted below, patient reports he was deemed non surgical for any additional surgery at this time. Denies any fever, abdominal or groin pain, weight loss, weakness, bladder or bowel dysfunction or saddle anesthesia. Location Waist down, radiates to bilateral legs, worse on right leg Duration Chronic pain > 2 years Characteristics of symptom or complaint Aching, dull, heavy, tight, burning, aching, pinching, squeezing Aggravating or associated factors Sleeping, sitting, Relieving factors Standing, stretching, amitriptyline, pregabalin, gabapentin-no relief Treatment Back surgery, injections, lumbar SCS [employer] [facility] 03/2022-no relief [facility] Medical History ADD (attention deficit disorder) without hyperactivity Generalized anxiety disorder Depression, major, severe recurrence Controlled diabetes mellitus type II without complication Hypertension Social History Alcohol intake: current Alcohol intake frequency: 3 or more drinks per day Alcohol type: beer Patient Tobacco Use Status: Former Tobacco user Tobacco use type: Cigarette Review of Systems Const All systems reviewed & are unremarkable except as noted in HPI and below Physical Exam General: Appears afebrile. Alert and oriented. Mood and affect appropriate. Follows and participates in conversation appropriately. Respiratory effort is unlabored. No cough. Able to transition from sit to stand unassisted. Ambulates with bilaterally normal heel strike and toe off. Back/Spine/Pelvis Cervical Spine: cervical muscular tenderness and No Cervical spine tenderness Thoracic/Lumbar Spine: thoracic and lumbar spine normal to inspection, Thoracic/lumbar spine scar(s) (x2, well healed), Lasegue's sign negative, straight leg raise negative bilaterally, pain with thoraco-lumbar ROM, paraspinal muscle tenderness, thoraco-lumbar ROM limited, No thoracic spinal tenderness and lumbar spinal tenderness Pelvis: buttock tenderness bilaterally and no sciatic notch tenderness Neuro General: moves all extremities and Normal light touch and pain sensation Assessment & Plan Assessment & Plan (1) Spinal cord stimulator dysfunction: Code(s): T85.192A - Other mechanical complication of implanted electronic neurostimulator of spinal cord electrode (lead), initial encounter (2) Lumbar spondylosis: Code(s): M47.816 - Spondylosis without myelopathy or radiculopathy, lumbar region (3) Lumbar degenerative disc disease: Code(s): M51.36 - Other intervertebral disc degeneration, lumbar region (4) Chronic pain syndrome: Code(s): G89.4 - Chronic pain syndrome (5) Failed back syndrome: Code(s): M96.1 - Postlaminectomy syndrome, not elsewhere classified Plan 1. Patient is status post Caudal JOSE LUIS with catheter on 03/14/23 with improved bilateral leg pain and less pain with sitting. 2. [employer] SCS implant is scheduled to be removed by Dr. Barclay on 05/22/23. Will provide short script for oxycodone for moderate to severe pain only while he awaits his procedure. Patient has Narcan at home. He is aware to take oxycodone for moderate to severe pain only. Side effects and precautions were reviewed with patient. All questions were answered and the patient is in agreement of plan. Follow-up after injections and sooner as needed. Medications: New oxycodone Partial Fill upon patient request. 5 mg PO Q12H 15 days PRN 30 tabs 0RF pain G89.4 - Chronic pain syndrome, M47.816 - Spondylosis without myelopathy or radiculopathy, lumbar region, M51.36 - Other intervertebral disc degeneration, lumbar region, T85.192A - Other mechanical complication of implanted electronic neurostimulator of spinal cord electrode (lead), initial encounter Coding Level of Care Code Est Pt Level 4 (14897) Diagnoses Spinal cord stimulator dysfunction T85.192A Lumbar spondylosis M47.816 Lumbar degenerative disc disease M51.36 Chronic pain syndrome G89.4 Failed back syndrome M96.1
[2023-04-18 08:55] VITALS: BP 120/83; PULSE 107; O2SAT 98; BMI 33.3
== END 2023-04-18 09:06 | disposition home or self-care (01) ==
PROVIDERS: PCP Family Medicine; Visit Provider Nurse Practitioner Family
DX: T85.192A Other mechanical complication of implanted electronic neurostimulator of spinal cord electrode (lead), initial encounter (principal); M47.816 Spondylosis without myelopathy or radiculopathy, lumbar region; M51.36 Other intervertebral disc degeneration, lumbar region; G89.4 Chronic pain syndrome; M96.1 Postlaminectomy syndrome, not elsewhere classified
CPT/HCPCS: 99214

== ENCOUNTER → 2023-04-18 08:40 | Outpatient (BNVA) | payer MEDICARE, SELFPAY | PROVIDERS: PCP Family Medicine; Visit Provider Nurse Practitioner Family | DX: T85.192A Other mechanical complication of implanted electronic neurostimulator of spinal cord electrode (lead), initial encounter (principal); M47.816 Spondylosis without myelopathy or radiculopathy, lumbar region; M51.36 Other intervertebral disc degeneration, lumbar region; G89.4 Chronic pain syndrome; M96.1 Postlaminectomy syndrome, not elsewhere classified; Z79.891 Long term (current) use of opiate analgesic | CPT/HCPCS: 99212 ==

== ENCOUNTER 2023-05-29 05:48 | Day surgery (SDC) | payer MEDICARE, SELFPAY ==
[2023-05-21 10:05] VITALS: BMI 33.3
--- NOTE | 2023-05-28 09:02 | P.CONAN_ITS ---
Documented by User: Felisha Smith NP 05/28/23 09:03 HPI - Anesthesia Eval Consult details Narrative: 67yo M for Remove Spinal Cord Stimulator s/p Caudal Epidural Steroid Injection with Catheter 03/2023 with TIVA PMFSH Active Problems Active Problems: All Active Problems (Updated 05/21/23 @ 10:05 by Shani Hayden RN) Spinal cord stimulator dysfunction (Acute) Lumbar spondylosis (Acute) Lumbar degenerative disc disease (Acute) Chronic pain syndrome (Acute) Lumbago (Acute) Failed back syndrome (Acute) Bilateral lumbar radiculopathy (Acute) Major depressive disorder in partial remission (Acute) Sleep apnea with use of continuous positive airway pressure (CPAP) (Acute) ADD (attention deficit disorder) without hyperactivity (Acute) Generalized anxiety disorder (Acute) Depression, major, severe recurrence (Acute) Controlled diabetes mellitus type II without complication (Acute) Hypertension (Acute) Past Medical History Medical History (Updated 05/21/23 @ 10:05 by Shani Hayden RN) Fatty liver Failed back syndrome Sleep apnea 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 Generalized anxiety disorder Depression, major, severe recurrence Controlled diabetes mellitus type II without complication Hypertension Surgical History Surgical History (Updated 05/21/23 @ 10:01 by Shani Hayden RN) Hx of spinal surgery H/O colonoscopy History of surgery S/P placement of nerve stimulator History of Problems with Anesthesia: No Social History Social History Are you a primary career development counselor to a significant other at home: No Do you presently have visiting nurse or other home services: No Alcohol intake: current Alcohol intake frequency: 3 or more drinks per day Alcohol type: beer Patient Tobacco Use Status: Former Tobacco user Quit Date: age late 20's Tobacco use type: Cigarette Years Smoked: 2.5 Use of substances other than those prescribed or required for medical reasons: Yes Substance Use Type Other:: marijuana drops qHS for sleep-has medical marijuana card Substance Use Frequency: Daily Have you been hit, kicked, punched, or otherwise hurt by someone within the past year? If so, by whom?: No Are you DNR?: No Advance Directives: No Advance Directives Information Provided: Yes Advance Directives on File: No Recently lost weight without trying: No Eating poorly because of decreased appetite: No Nutrition Risks: No Nutritional Risk Poor oral hygiene: No (one missing tooth, one dental implant) Meds Allergies Allergy/AdvReac Type Severity Reaction Status Date / Time gabapentin Allergy Intermediate Rash Verified 05/21/23 09:11 aripiprazole [From Abilify] AdvReac Intermediate Agitated Verified 05/21/23 09:11 bupropion AdvReac Intermediate Agitated Verified 05/21/23 09:11 [From Wellbutrin SR] Home Medications Medication Instructions Recorded Confirmed Last Taken Type glipizide 10 mg tablet, extended 10 mg PO QAM 02/01/22 05/21/23 03/14/23 History release 24 hr sildenafil 100 mg tablet 50 mg PO DIRECTED 02/01/22 05/21/23 Unknown History lisinopril 40 mg tablet 40 mg PO QAM 02/17/23 05/21/23 03/14/23 History atorvastatin 40 mg tablet 40 mg PO QAM 04/18/23 05/21/23 Unknown History lamotrigine 200 mg tablet 200 mg PO QAM 05/21/23 05/21/23 05/29/23 History Exam Height,Weight and Vital Signs: Height 5 ft 3 in Weight 85.275 kg Assessment and Plan Assessment Anesthesia Assessment: Chart Reviewed Final Anesthetic Review History of Problems with Anesthesia: No Documented by User: Nathalia Gomez MD 05/29/23 07:06 [facility] Past Medical History Medical History (Updated 05/21/23 @ 10:05 by Shani Hayden RN) Fatty liver Failed back syndrome Sleep apnea 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 Generalized anxiety disorder Depression, major, severe recurrence Controlled diabetes mellitus type II without complication Hypertension Family History Family history of problems with anesthesia: No Surgical History Surgical History (Updated 05/21/23 @ 10:01 by Shani Hayden RN) Hx of spinal surgery H/O colonoscopy History of surgery S/P placement of nerve stimulator Social History Social History Are you a primary career development counselor to a significant other at home: No Do you presently have visiting nurse or other home services: No Alcohol intake: current Alcohol intake frequency: 3 or more drinks per day Alcohol type: beer Patient Tobacco Use Status: Former Tobacco user Quit Date: age late 20's Tobacco use type: Cigarette Years Smoked: 2.5 Use of substances other than those prescribed or required for medical reasons: Yes Substance Use Type Other:: marijuana drops qHS for sleep-has medical marijuana card Substance Use Frequency: Daily Have you been hit, kicked, punched, or otherwise hurt by someone within the past year? If so, by whom?: No Are you DNR?: No Advance Directives: No Advance Directives Information Provided: Yes Advance Directives on File: No Recently lost weight without trying: No Eating poorly because of decreased appetite: No Nutrition Risks: No Nutritional Risk Poor oral hygiene: No (one missing tooth, one dental implant) Meds Allergies Allergy/AdvReac Type Severity Reaction Status Date / Time gabapentin Allergy Intermediate Rash Verified 05/21/23 09:11 aripiprazole [From Abilify] AdvReac Intermediate Agitated Verified 05/21/23 0 9:11 bupropion AdvReac Intermediate Agitated Verified 05/21/23 09:11 [From Wellbutrin SR] Home Medications Medication Instructions Recorded Confirmed Last Taken Type glipizide 10 mg tablet, extended 10 mg PO QAM 02/01/22 05/21/23 03/14/23 History release 24 hr sildenafil 100 mg tablet 50 mg PO DIRECTED 02/01/22 05/21/23 Unknown History lisinopril 40 mg tablet 40 mg PO QAM 02/17/23 05/21/23 03/14/23 History atorvastatin 40 mg tablet 40 mg PO QAM 04/18/23 05/21/23 Unknown History lamotrigine 200 mg tablet 200 mg PO QAM 05/21/23 05/21/23 05/29/23 History Exam Airway Mallampati Class: II TM Dist: >3cm Neck ROM: Full Assessment and Plan Assessment Anesthesia Assessment: Anesthesia Plan Discussed Final Anesthetic Review Family History of Problems with Anesthesia: No NPO: Yes ASA Class: III Final Preanesthetic Review: No Changes in Pt Med Stat, Meds/Allgs Chart Reviewed, Consent Obtained/Reviewed and Anes Risks/Benef Reviewed Patient Risk: Intermediate Procedure Risk: Low Anesthetic Plan Anesthetic Plan: GA Disposition: Standard PACU
[2023-05-29] VITALS (8 sets, daily range): BP systolic 132–152; BP diastolic 80–92; PULSE 74–90; RESP 16–17; TEMP 36.2–36.9; O2SAT 94–97; BMI 32.9
[2023-05-29 06:29] LABS: Glucose, Whole Blood 172 mg/dL (60-115)
[2023-05-29] MEDS: Lactated Ringers 1,000 ML 100 ML IVCONT (06:34)
[2023-05-29] MEDS: methocarbamoL 750 MG TABLET PO (06:38)
--- NOTE | 2023-05-29 07:00 | MHC.SHP ---
Pre-Procedural Eval Section A - 24 Hr Update-Section A only Date of Service: 05/29/23 The patient is an INPATIENT: No Changes since office visit: No Cold of Flu in the past 2 weeks, No New Medical Problems, No Changes in Medication and No Patient answered all questions The patient has been examined within 24 hours of the surgical procedure. The History & Physical has been completed within 30 days and I have reviewed it.: No Section B - Complete if H&P > 30 days Chief Complaint: complication of implanted,postlaminectomy syndrome Allergies: Allergies Allergy/AdvReac Type Severity Reaction Status Date / Time gabapentin Allergy Intermediate Rash Verified 05/21/23 09:11 aripiprazole [From Abilify] AdvReac Intermediate Agitated Verified 05/21/23 09:11 bupropion AdvReac Intermediate Agitated Verified 05/21/23 09:11 [From Wellbutrin SR] Review of Systems Sugical H&P ROS: Negative: Constitution, Cardiovascular, Respiratory, Neurological, Psychiatric, Hem-Onc, Allergic/Immunologic, Gastrointestinal, Genitourinary, Musculoskeletal, Integumentary, Endocrine and Eyes/Ears/Nose/Throat Exam Surgical H&P Exam: Not Evaluated: HEENT, Not Evaluated: Heart, Not Evaluated: Lungs, Not Evaluated: Extremities, Not Evaluated: Abdomen, Not Evaluated: Skin and Not Evaluated: Neurological Plan Diagnosis/Plan: Unchanged removal of spinal cord stimulator Time Spent With Patient Time: Total time managing care of this patient today __6__ minutes.
--- NOTE | 2023-05-29 08:50 | P.OP_ITS ---
Operative Note Operative Note Date of Service: 05/29/23 Narrative: Preop diagnosis: Chronic pain syndrome. Spinal cord stimulator Postop diagnosis: Same Procedure: Remove spinal cord similar Surgeon: Praveen Barclay MD Assist: Wyatt schwab Description of procedure: This [id number] male had a spinal cord stimulator placed a few years ago and wants it removed because it does not work.The procedure complications were explained, including the inability of removal of the epidural leads to to scar tissue. The patient was consented. The patient was brought to the operating room and intubated. . Patient was turned prone on the Carlos spine table followed by prepping and draping. Surgical time-out was performed. The physician pharmacy technician assistant injected local anesthetic after which the previous incision was opened to expose the underlying battery. The battery was removed and disconnected. In the meantime I opened the low thoracic incision and exposed the 2 leads going in to the epidural space. The wires were cut from the battery and retrieved subcutaneously towards the thoracic incision after a fair amount of scar tissue had to be resected to mobilize the leads. This same finding was true for the thoracic area. Unfortunately, I was unable to retrieve the epidural leads due to scar tissue. The wires were cut and the leads were left insitu. The 2 incisions were closed by the physician pharmacy technician assistant with a an 0 Vicryl for the fascia 3-0 Vicryl subdermal layer. Steri-Strips were used to approximate the incision. All sponge needle counts were correct. Patient was transported in stable to recovery room. Anesthesia: General anesthesia Estimated blood loss: Minimal Specimen: None Surgical time: 40 minutes Deposition: Discharged home
--- NOTE | 2023-05-29 08:52 | P.DS_ITS ---
DS: Providers Provider Date of Service: 05/29/23 Date of discharge: 05/29/23 Primary care physician: Jaleesa Yang MD Admitting clinician: Praveen Barclay DS: Diagnosis Discharge Diagnosis (1) Spinal cord stimulator dysfunction: Status: Acute DS: Summary Time Attestation Discharge coordination time: Less than 30 minutes Quality: Safe Use of Opioids Does Pt have an Active Cancer Diagnosis on the Problem List?: No Quality: Stroke Does the patient have a stroke diagnosis?: No Physical Exam Vital Signs: Vital Signs: Last Vital Signs Temp 98.4 F 05/29/23 06:12 Pulse 88 05/29/23 06:12 Resp 17 05/29/23 06:12 BP 132/92 H 05/29/23 06:12 Pulse Ox 97 05/29/23 06:12 O2 Del Method Room Air 05/29/23 06:12 BMI result Body Mass Index 32.9 DS: Data Data Completed and Pending Labs on day of discharge: Laboratory Results - last 24 hr 05/29/23 06:26 POC Glucose 172 H Discharge Plan Discharge Patient Disposition: Home, Self-Care Referrals: Jaleesa Yang MD [Primary Care Provider] - 1 Week Discharge Medications: New oxycodone 5 mg tablet 5 mg PO Q8-10H PRN (Reason: pain) Qty: 20 0RF Rx Instructions: Partial Fill upon patient request. Continued lorazepam 1 mg tablet 1 mg PO BEDTIME PRN (Reason: anxiety) Qty: 20 1RF trazodone 100 mg tablet 100 - 200 mg PO BEDTIME Qty: 60 2RF lamotrigine 200 mg tablet 200 mg PO QAM glipizide 10 mg tablet extended release 24hr 10 mg PO QAM sildenafil 100 mg tablet 50 mg PO DIRECTED lisinopril 40 mg tablet 40 mg PO QAM atorvastatin 40 mg tablet 40 mg PO QAM oxycodone 5 mg tablet 5 mg PO Q12H PRN (Reason: pain) 15 Days Qty: 30 0RF Rx Instructions: Partial Fill upon patient request. naloxone [Narcan] 4 mg/actuation spray,non-aerosol 1 spray intranasal Q2M Qty: 2 0RF Rx Instructions: spray 1 dose into ONE nostril; alternate nostrils w each dose until help arrives Discharge Orders: Discharge Order (Routine); Ordered 05/29/23 Ordered By: Wyatt Silverman Diet: Advance to usual diet Activity on Discharge: As tolerated Activity Restrictions/Additional Instructions: After your spinal surgery we ask you to observe the following restrictions/guidelines: We were unable to retrieve all the components of the spinal cord stimulator that were deeper in near the spinal cord. You will need to find out if your device was/is MRI compatable before undergoing an MRI. You should make any future arrangements of MRI imaging aware you still have the residual pieces of stimulator still in your spine. Activity: It is normal to feel some discomfort as you increase your activity, but that will improve with time. We ask you avoid heavy lifting or acitivities that cause pain. As a general rule, 8lbs is a safe limit for lifting right after surgery. Walk as much as you feel comfortable but not to exhaustion. You will feel extra tired the first few days after surgery. Stay well hydrated. It is OK to walk up and down stairs You may return to driving when you are off narcotics (such as vicodin, oxycodone, dilaudid, etc), and you are back to normal functional capacity. If you have any concerns please check with office before driving. Return to work is specific to each patient and each surgery, so please speak with your doctor/PA at first follow up. Please bring paperwork such as FMLA at that time if you need it filled out. Medications: For optimum pain control, it is best to start with a combination of 500 mg of Tylenol every 4 hours with 600 mg of Motrin every 8 hours, and use narcotics as needed in between for breakthrough pain. We will give you a short supply of narcotics after surgery (usually one weeks worth). If you need more please call the office but do not use more than prescribed. You will need to give our office 48 hours notice if you need narc otics refilled and we do not fill narcotics on weekends or evenings. If you are on a narcotic, it is a good idea to take a stool softener such as colace or senna to avoid constipation If you take blood thinner such as aspirin, Plavix, Coumadin, Effient, Eliquis etc for conditions such as Afib, DVT, Pulmonary embolus, coronary disease, stents etc please speak with your surgeon about specific details as to when you can resume these medications. You can resume NSAIDs on post op day 1 (eg: Motrin, Naproxen, etc). Follow up: Please call the office, , after surgery to arrange a 3 week follow up for wound check. Wound Care: You may remove your dressing on the first day after surgery. ?You may ?leave open to air. Please do not remove the steri strips underneath. they will fall off on their own in one week. IT IS NORMAL FOR THE WOUND TO OOZE OR BE BLOODY FOR A FEW DAYS AFTER SURGERY. ?IF THIS HAPPENS JUST PLACE NEW DRESSING OVER IT TO AVOID STAINING CLOTHES. You may shower on post op day # 1 We ask that you do not let the water soak the wound. If it does get wet, just towel dry lightly. Please do not scrub your incision or place any type of chemical/ointment on the wound. No tub baths, pools or jacuzzis for one month. If you have any leaking or redness from your wound, or fevers, please call office
[2023-05-29] MEDS: ondansetron HCL 4 MG/2 ML VIAL IVPUSH (09:51)
== END 2023-05-29 11:05 | disposition home or self-care (01) ==
PROVIDERS: PCP Family Medicine; Visit Provider Neurological Surgery
PROC: (CPT 63688; principal; 2023-05-29 07:30)
DX: T85.192A Other mechanical complication of implanted electronic neurostimulator of spinal cord electrode (lead), initial encounter (principal); Y75.1 Therapeutic (nonsurgical) and rehabilitative neurological devices associated with adverse incidents; G89.4 Chronic pain syndrome; M96.1 Postlaminectomy syndrome, not elsewhere classified; E11.9 Type 2 diabetes mellitus without complications; I10 Essential (primary) hypertension; G47.33 Obstructive sleep apnea (adult) (pediatric); Z79.84 Long term (current) use of oral hypoglycemic drugs; Z79.899 Other long term (current) drug therapy; Z88.8 Allergy status to other drugs, medicaments and biological substances; Z87.891 Personal history of nicotine dependence
CPT/HCPCS: 63688; 63661; 82947; J0131; J0330; J0690; J1100; J1170; J2250; J2405; J2704; J3010

== ENCOUNTER → 2023-05-29 05:48 | Outpatient (BNV) | payer MEDICARE, SELFPAY | PROVIDERS: PCP Family Medicine; Visit Provider Neurological Surgery | DX: T85.192A Other mechanical complication of implanted electronic neurostimulator of spinal cord electrode (lead), initial encounter (principal) | CPT/HCPCS: 63662; 63688; 99024 ==

== ENCOUNTER 2023-06-06 10:28 | Outpatient (AMB) | payer MEDICARE, SELFPAY ==
--- NOTE | 2023-06-06 10:30 | MHC.OFFVIS ---
Intake Vital Signs 06/06/23 10:33 Height 5 ft 3 in Weight 185 lb 2 oz BMI 32.8 BP 165/87 H Blood Pressure Location Rt brachial Position Sitting Pulse 81 Pulse Source Pulse Oximeter Pulse Oximetry (%) 97 Oxygen Delivery Method Room Air Intake Visit Reasons: INTRACEPT DISCUSSION Intake Note: Pain today 08/14 Lay Midwife Required: No Accompanied by: Self / Same As Patient Allergies gabapentin Allergy (Intermediate, Verified 06/06/23 10:34) Rash aripiprazole [From Abilify] Adverse Reaction (Intermediate, Verified 06/06/23 10:34) Agitated bupropion [From Wellbutrin SR] Adverse Reaction (Intermediate, Verified 06/06/23 10:34) Agitated HPI HPI Comments History of Present Illness Details Patient presents today to discuss interventional treatments for his chronic low back pain. He is one week s/p SCS implant removal on 05/29/[address] Barclay. His two back incisions are open to air with intact Steri Strips. Incision sites look clean, dry, intact, no redness, no swelling, no pathological discharge. Per [facility] discharge note summary: We were unable to retrieve all the components of the spinal cord stimulator that were deeper in near the spinal cord. You will need to find out if your device was/is MRI compatable before undergoing an MRI. You should make any future arrangements of MRI imaging aware you still have the residual pieces of stimulator still in your spine. Patient reports he reached out to SCS device patient admitting representative and was told that previous SCS implant was MRI compatible. We will proceed with lumbar spine MRI to assess for neural integrity and compression and follow up on previous MRI findings. Patient continues to endorse lower back pain and exacerbation with lumbar flexion indicating a discogenic source. We previously discussed BVN ablation/Intracept procedure and reviewed this again today. His previous lumbar spine MRI showed degenerative disc height loss with associated degenerative discogenic endplate changes. Denies any recent cough, cold, infection, fever or other significant changes in medical history since last office visit. Past Procedures: 05/29/23: SCS implant removal by Dr. Barclay, [facility] 03/14/23: Caudal JOSE LUIS with [id number] ongoing pain relief PRIOR: Patient is a pleasant 67 years old male with history of previous synovial cyst resection, laminectomy and Denair Sci SCS implant in 03/2022 presents today for evaluation of low back pain that radiates to his legs laterally. Patient reports his SCS device was reprogrammed 15 times last month without any improvement in his symptoms. It was surgically implanted by Dr. Barclay and patient is considering to remove it as it is active but not providing him any pain relief. His pain is worse at night while sleeping with laying down and with prolonged sitting or standing during the day. Patient rates his pain >8/10. Pain negatively affects his daily activities, functioning, sleep, social activities, mood and quality of life. He ambulates without any limitations and at times wakes in the middle of the night to walk to alleviate his leg symptoms. L:umbar spine MRI is noted below, patient reports he was deemed non surgical for any additional surgery at this time. Denies any fever, abdominal or groin pain, weight loss, weakness, bladder or bowel dysfunction or saddle anesthesia. Location Waist down, radiates to bilateral legs, worse on right leg Duration Chronic pain > 2 years Characteristics of symptom or complaint Aching, dull, heavy, tight, burning, aching, pinching, squeezing Aggravating or associated factors Sleeping, sitting, Relieving factors Standing, stretching, amitriptyline, pregabalin, gabapentin-no relief Treatment Back surgery, injections, lumbar SCS Denair Sci 03/2022-no relief [facility] Medical History (Updated 06/06/23 @ 15:46 by BELÉN Shah) Spinal cord stimulator dysfunction Fatty liver Failed back syndrome Sleep apnea 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 Generalized anxiety disorder Depression, major, severe recurrence Controlled diabetes mellitus type II without complication Hypertension Surgical History Hx of spinal surgery H/O colonoscopy History of surgery S/P placement of nerve stimulator Social History Are you a primary care director rn to a significant other at home: No Do you presently have visiting nurse or other home services: No Alcohol intake: current Alcohol intake frequency: 3 or more drinks per day Alcohol type: beer Patient Tobacco Use Status: Former Tobacco user Quit Date: age late 20's Tobacco use type: Cigarette Years Smoked: 2.5 Review of Systems Const All systems reviewed & are unremarkable except as noted in HPI and below Physical Exam General: Appears afebrile. Alert and oriented. Mood and affect appropriate. Follows and participates in conversation appropriately. Respiratory effort is unlabored. No cough. Able to transition from sit to stand unassisted. Ambulates with bilaterally normal heel strike and toe off. Back/Spine/Pelvis Other: Lumbar flexion, extension and bending reproduces mild to moderate pain. Painful facet loading. Cervical Spine: cervical muscular tenderness and No Cervical spine tenderness Thoracic/Lumbar Spine: thoracic and lumbar spine normal to inspection, Thoracic/lumbar spine scar(s) (x2, well healed), Lasegue's sign negative, straight leg raise negative bilaterally, pain with thoraco-lumbar ROM, paraspinal muscle tenderness, thoraco-lumbar ROM limited, No thoracic spinal tenderness and lumbar spinal tenderness Pelvis: no buttock tenderness Results Reviewed Results Reviewed: XR LUMBOSACRAL SPINE WITH OBLIQUES 02/05/23 CLINICAL INFORMATION: Low back pain. FINDINGS: Electrical stimulator pack overlying the right lower quadrant with leads projecting cephalad overlying the lower thoracic spine, with tips incompletely imaged. Facet arthritis at the [id number] lumbar spine. The bones are diffusely demineralized. Atherosclerotic aortic calcifications. Advanced degenerative changes in the imaged lower thoracic. Moderate multilevel lumbar spondylosis with multilevel loss of disc space height. Minimal grade 1 retrolisthesis of L2 on L3, L3 on L4, and L4 on L5. IMPRESSION: Multilevel degenerative changes in the lumbar spine. Assessment & Plan Assessment & Plan (1) Lumbar spondylosis: Code(s): M47.816 - Spondylosis without myelopathy or radiculopathy, lumbar region (2) Lumbar degenerative disc disease: Code(s): M51.36 - Other intervertebral disc degeneration, lumbar region (3) Chronic pain syndrome: Code(s): G89.4 - Chronic pain syndrome (4) Failed back syndrome: Code(s): M96.1 - Postlaminectomy syndrome, not elsewhere classified (5) Vertebrogenic low back pain: Code(s): M54.51 - Vertebrogenic low back pain Plan We will proceed with lumbar spine MRI to assess for neural integrity and compression and follow up on previous MRI findings. Patient continues to endorse lower back pain and exacerbation with lumbar flexion indicating a discogenic source. We previously discussed BVN ablation/Intracept procedure and reviewed this again today. Informational pamphlet provided to patient. His previous lumbar spine MRI showed degenerative disc height loss with associated degenerative discogenic endplate changes. His incisions s/p recent SCS implant removal are well healing without any pathological discharge, redness or swelling. All questions were answered and the patient is in agreement of plan. Follow-up for MRI results and sooner as needed. Coding Level of Care Code Est Pt Level 4 (00772) Diagnoses Lumbar spondylosis M47.816 Lumbar degenerative disc disease M51.36 Chronic pain syndrome G89.4 Failed back syndrome M96.1 Vertebrogenic low back pain M54.51
[2023-06-06 10:33] VITALS: BP 165/87; PULSE 81; O2SAT 97; BMI 32.8
== END 2023-06-06 10:48 | disposition home or self-care (01) ==
PROVIDERS: PCP Family Medicine; Visit Provider Nurse Practitioner Family
DX: M47.816 Spondylosis without myelopathy or radiculopathy, lumbar region (principal); M51.36 Other intervertebral disc degeneration, lumbar region; G89.4 Chronic pain syndrome; M96.1 Postlaminectomy syndrome, not elsewhere classified; M54.51 Vertebrogenic low back pain
CPT/HCPCS: 99214

== ENCOUNTER → 2023-06-06 10:28 | Outpatient (BNVA) | payer MEDICARE, SELFPAY | PROVIDERS: PCP Family Medicine; Visit Provider Nurse Practitioner Family | DX: F32.4 Major depressive disorder, single episode, in partial remission (principal); M54.51 Vertebrogenic low back pain; G47.30 Sleep apnea, unspecified; G89.4 Chronic pain syndrome; F98.8 Other specified behavioral and emotional disorders with onset usually occurring in childhood and adolescence; M47.816 Spondylosis without myelopathy or radiculopathy, lumbar region; M51.36 Other intervertebral disc degeneration, lumbar region; M96.1 Postlaminectomy syndrome, not elsewhere classified | CPT/HCPCS: 99212 ==

== ENCOUNTER 2023-06-06 10:55 | Outpatient (AMB) | payer OTHER, SELFPAY ==
--- NOTE | 2023-06-06 11:48 | A.OFFPSYCH_ITS ---
Intake Intake Visit Reasons: depression Allergies gabapentin Allergy (Intermediate, Verified 06/06/23 10:34) Rash aripiprazole [From Abilify] Adverse Reaction (Intermediate, Verified 06/06/23 10:34) Agitated bupropion [From Wellbutrin SR] Adverse Reaction (Intermediate, Verified 06/06/23 10:34) Agitated Medication List - Last Reconciled 06/06/23 by Giuseppe Gallegos MD atorvastatin 40 mg PO QAM glipizide ER 10 mg PO QAM lamotrigine 200 mg PO QAM lisinopril 40 mg PO QAM lorazepam 1 mg PO BEDTIME PRN lurasidone (Latuda) 20 mg PO DAILY naloxone 4 mg/actuation (Narcan) 1 spray intranasal Q2M oxycodone 5 mg PO Q8-10H PRN oxycodone 5 mg PO Q12H PRN 15 days sildenafil 50 mg PO DIRECTED trazodone 100 - 200 mg (1 - 2 x 100 mg) PO BEDTIME HPI- Psychiatric Chief Complaint: depression HPI Narrative: Pt seen in psychiatric f/u cont to struggle with issues chronic pain legs using 4 mg hydromorphone Left over from his 's hospice cancer care. Patient states he limits himself to 4 mg daily denies feeling overly sedated states he feels a lift perhaps mildly expansive denies any withdrawal symptoms. Had been drinking 2-3 beers he states with dinner night he wishes to cut down on this has also at times been taking shots denies blackouts he states generally future oriented not suicidal but not sure what her next step in life is. He is in therapy with Dr. Alexandria Bartholomew any states this has been quite helpful PHQ-9 mildly-mod elevated at 10 Past Psychiatric History: THE PATIENT HAS A LONG HISTORY OF TREATMENT RESISTANT DEPRESSION HISTORY OF ADD CHRONIC DIFFICULTY TAKING CARE OF HIS OWN NEEDS HISTORY OF ALCOHOL ABUSE STRESSED TAKING CARE OF HIS LONG-TERM PARTNER Mental Status Exam Mental Status Exam Patient Appearance: Well Grooomed Patient Orientation: Person, Place, Time and Situation Level of Consciousness: Awake Patient Behavior: Appropriate Mood Description: Calm, Constricted and Depressed Affect Description: Appropriate and Constricted Patient Cognition Impaired: No Ability to Follow Directions: Good Speech Pattern: Clear Memory Description: Intact Hallucinations: None Delusions: Not Present Thought Process: Intact and Goal Oriented Thought Content: positive for Goal Oriented, positive for Preoccupation, negat buddy for Suicidal Ideation or negative for Homicidal Ideation Depressive Symptoms: Increased Anxiety, Increased Irritability, Low Self Esteem and Difficulty Concentrating Judgement: Good Judgement and Insight: Patient was open to the use of Suboxone in transition from using Dilaudid denies SI trying to figure out his next phase of life he does have some social supports Assessment and Plan Assessment & Plan (1) Major depressive disorder in partial remission: Status: Acute Code(s): F32.4 - Major depressive disorder, single episode, in partial remission (2) Vertebrogenic low back pain: Status: Acute Code(s): M54.51 - Vertebrogenic low back pain (3) Chronic pain syndrome: Status: Acute Code(s): G89.4 - Chronic pain syndrome (4) Sleep apnea with use of continuous positive airway pressure (CPAP): Status: Acute Code(s): G47.30 - Sleep apnea, unspecified (5) ADD (attention deficit disorder) without hyperactivity: Status: Acute Code(s): F98.8 - Other specified behavioral and emotional disorders with onset usually occurring in childhood and adolescence Plan Discussed trial of Latuda for treatment resistant depressive symptoms some degree of mood instability and anxiety Risks benefits alternatives reviewed also referral [facility] call to Shakira Stevens nurse practitioner Director of the [facility] there is some data that is Suboxone may have some help in some patients with depression patient does have an addiction history including alcohol has not been engaged in recovery meetings Patient does not have prior substance use history Medications: New lurasidone (Latuda) must administer with food (at least 350 calories) 20 mg PO DAILY 30 tabs 1RF Counseling and coordination of Care Pt. Self Management counseling: Substance abuse tx adhere Medication management counseling: Effectiveness, Side effects and Dosing range Diagnosis and Prognosis Counseling: Impact of diagnosis on life functions, Problematic behaviors secondary to diagnosis and Adequacy of current interventions Details: I spent [36] minutes reviewing the record, seeing the patient and documenting in the medical record. Counseling provided to the patient/caregiver as outlined below. Addressed patient/caregiver concerns regarding current medication regime including effective adherence. Addressed patient/caregiver concerns regarding diagnosis and prognosis including accuracy of diagnosis, prognosis over time, impact of diagnosis. Addressed patient/caregiver concerns regarding impact of recent stressors. [facility] Medical History (Updated 06/06/23 @ 15:46 by BELÉN Shah) Spinal cord stimulator dysfunction Fatty liver Failed back syndrome Sleep apnea 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 Generalized anxiety disorder Depression, major, severe recurrence Controlled diabetes mellitus type II without complication Hypertension Surgical History Hx of spinal surgery H/O colonoscopy History of surgery S/P placement of nerve stimulator Social History Are you a primary personal care worker to a significant other at home: No Do you presently have visiting nurse or other home services: No Alcohol intake: current Alcohol intake frequency: 3 or more drinks per day Alcohol type: beer Patient Tobacco Use Status: Former Tobacco user Quit Date: age late 20's Tobacco use type: Cigarette Years Smoked: 2.5 Social History: Pts parents are used work at [employer] nature identifies as dye no children 1 brother in [place] Substance History: History of alcoholism denies on I'History of alcoholism denies ongoing drinking Coding Level of Care Code Est Pt Level 3 (49002) Therapy 30m w/E&M (15325) Diagnoses Major depressive disorder in partial remission F32.4 Vertebrogenic low back pain M54.51 Chronic pain syndrome G89.4 Sleep apnea with use of continuous positive airway pressure (CPAP) G47.30 ADD (attention deficit disorder) without hyperactivity F98.8
== END 2023-06-06 11:51 | disposition home or self-care (01) ==
LOC: HO.HOP 10:55
PROVIDERS: PCP Family Medicine; Visit Provider Psychiatry & Neurology Psychiatry
DX: F32.4 Major depressive disorder, single episode, in partial remission (principal); M54.51 Vertebrogenic low back pain; G89.4 Chronic pain syndrome; G47.30 Sleep apnea, unspecified; F98.8 Other specified behavioral and emotional disorders with onset usually occurring in childhood and adolescence
CPT/HCPCS: 90833; 99213

== ENCOUNTER → 2023-06-18 08:56 | Outpatient (BNVA) | payer MEDICARE, SELFPAY | PROVIDERS: PCP Family Medicine; Visit Provider Physician Assistant ==

== ENCOUNTER 2023-07-01 10:58 | Outpatient (AMB) | payer MEDICARE, SELFPAY ==
--- NOTE | 2023-07-01 11:07 | A.OFFVISCC_ITS ---
Intake Vital Signs 07/01/23 11:18 BP 146/84 H Blood Pressure Location Lt radial Position Sitting Pulse 79 Pulse Source Pulse Oximeter Pulse Oximetry (%) 96 Oxygen Delivery Method Room Air Intake Visit Reasons: mat Intake Note: the patient presents for a mat intake Fur Storage Clerk Required: No Allergies gabapentin Allergy (Intermediate, Verified 06/06/23 10:34) Rash aripiprazole [From Abilify] Adverse Reaction (Intermediate, Verified 06/06/23 10:34) Agitated bupropion [From Wellbutrin SR] Adverse Reaction (Intermediate, Verified 06/06/23 10:34) Agitated HPI mat HPI Details Patient presents for evaluation and treatment recommendations related to current prescription opioid use Referred by psychiatric provider after patient shared that he has been taking his late partner's hydromorphone since he passed in October He reports taking 1/2 of an 8mg tab daily. He reports getting more of a stimulant effect from it and denies any sedating effects at all. He states he has never taken more than one dose (4mg) per day. He states that there have been times where he goes several days without taking it and has no issue (withdrawal sx). Denies any increase in anxiety, stomach upset, diaphoresis, restlessness. He takes it in the morning and reports it helps him focus and get energized to get things done. He does not feel he has an issue with this medication (citing being able to stop previously for days) and does not identify with addiction related to this. He is aware that risk for overdose is present, however minimizes this based on his response to medication. He reports regular alcohol use which he finds problematic--reports drinking 3 beers every evening while making dinner Recently black out from etoh Previously taking shots of alcohol--no longer doing so. Discussed medications for opioid use--patient agreeable to trial of buprenorphine after the eclipse . Reviewed importance of time period from last opioid use to starting bupe. Discussed [facility]. [address] [facility] Medical History (Updated 07/06/23 @ 17:48 by Shakira Stevens CNP) Spinal cord stimulator dysfunction Fatty liver Failed back syndrome Sleep apnea 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 Generalized anxiety disorder Depression, major, severe recurrence Controlled diabetes mellitus type II without complication Hypertension Surgical History Hx of spinal surgery H/O colonoscopy History of surgery S/P placement of nerve stimulator Social History Are you a primary veterinarian laboratory animal care to a significant other at home: No Do you presently have visiting nurse or other home services: No Alcohol intake: current Alcohol intake frequency: 3 or more drinks per day Alcohol type: beer Patient Tobacco Use Status: Former Tobacco user Quit Date: age late 20's Tobacco use type: Cigarette Years Smoked: 2.5 Review of Systems Const Reports as per HPI and Reports no additional complaints Physical Exam Vital Signs: Last Vital Signs Pulse 79 07/01/23 11:18 BP 146/84 H 07/01/23 11:18 Pulse Ox 96 07/01/23 11:18 Oxygen Delivery Method Room Air 07/01/23 11:18 Const General: cooperative, healthy appearing and no acute distress Nutritional Appearance: average body habitus Orientation/consciousness: patient oriented x3 Limitations: no limitations Skin General skin exam: no rashes or lesions noted Neuro General: patient oriented x3 Psych Appearance: well kempt Speech and movement: Clear speech present Affect: normal affect Attitude: cooperative Thought process: Normal thought process present Assessment & Plan Assessment & Plan (1) Opioid use disorder, mild, abuse: Code(s): F11.10 - Opioid abuse, uncomplicated Plan: * patient agreeable to suboxone trial --reinforced need for hydromorphone to be stopped 1.5-2 days before first dose of bupe * patient wants to wait until after the eclipse--he is a maintenance plumber and planning on camping while he takes photos, states he does not take hydromorphone when he camps * overdose prevention discussion--patient does not feel he is at risk. Has narcan at home. * will email instructions on how to start bupe and follow up as scheduled Coding Level of Care Code Tele New Pt Level 4 (55923) Diagnoses Opioid use disorder, mild, abuse F11.10
[2023-07-01 11:18] VITALS: BP 146/84; PULSE 79; O2SAT 96
== END 2023-07-01 15:23 | disposition home or self-care (01) ==
PROVIDERS: PCP Family Medicine; Visit Provider Nurse Practitioner Psychiatric/Mental Health
DX: F11.10 Opioid abuse, uncomplicated (principal)
CPT/HCPCS: 99204

== ENCOUNTER → 2023-07-01 10:58 | Outpatient (BNVA) | payer MEDICARE, SELFPAY | PROVIDERS: PCP Family Medicine; Visit Provider Nurse Practitioner Psychiatric/Mental Health | DX: F11.10 Opioid abuse, uncomplicated (principal) | CPT/HCPCS: 99202 ==

== ENCOUNTER 2023-07-17 07:31 | Outpatient (REF) | payer MEDICARE, SELFPAY ==
--- NOTE | ~2023-07-17 | CT_ITS ---
EXAMINATION: CT LUMBAR SPINE WITHOUT CONTRAST CLINICAL INFORMATION: Vertebrogenic low back pain COMPARISON: None available. TECHNIQUE: Multidetector CT acquisitions of the lumbar spine without administration of intravenous contrast. This CT examination was performed using dose optimization techniques as appropriate, variously including the following: *Automated exposure control *Adjustment of mA and/or kV according to patient size (this includes techniques or standardized protocols for targeted exams where dose is matched to indication/reason for exam; i.e. extremities or head) *Use of iterative reconstruction technique DLP; 633 mGy-cm FINDINGS: Trace retrolisthesis at L2-L3. Diffuse sclerosis of the S1 vertebra, likely degenerative. No acute compression fracture. The vertebral body heights are preserved. Mild disc height loss at L2-L3. Multilevel endplate osteophytosis. Please note that evaluation is limited in the absence of intrathecal contrast material. T12-L1: No significant spinal canal or neural foraminal narrowing. L1-L2: Diffuse disc bulge. No significant spinal canal or neural foraminal narrowing. L2-L3: Diffuse disc bulge. Mild left neural foraminal narrowing. No significant spinal canal stenosis. L3-L4: Diffuse disc bulge and bilateral facet arthrosis. No significant spinal canal stenosis. Mild bilateral neural foraminal narrowing. L4-L5: Diffuse disc bulge and bilateral facet arthrosis. No significant spinal canal stenosis. Mild bilateral neural foraminal narrowing. L5-S1: No significant spinal canal or neural foraminal narrowing. The paravertebral soft tissues are unremarkable. Atherosclerotic ossifications of the abdominal aorta and its branches. 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 No high-grade spinal canal stenosis. Mild neural foraminal narrowing at multiple levels.
== END 2023-07-17 07:32 | disposition home or self-care (01) ==
LOC: HO.CT 07:31
PROVIDERS: PCP Family Medicine; Visit Provider Nurse Practitioner Family
DX: M54.51 Vertebrogenic low back pain (principal); M47.816 Spondylosis without myelopathy or radiculopathy, lumbar region; M51.36 Other intervertebral disc degeneration, lumbar region; M96.1 Postlaminectomy syndrome, not elsewhere classified
CPT/HCPCS: 72132

== ENCOUNTER 2023-07-24 10:17 | Outpatient (AMB) | payer MEDICARE, SELFPAY ==
--- NOTE | 2023-07-24 10:16 | A.OFFVISCC_ITS ---
Vital Signs 07/24/23 10:18 BP 118/84 Blood Pressure Location Rt brachial Position Sitting Pulse 97 Pulse Source Pulse Oximeter Pulse Oximetry (%) 97 Oxygen Delivery Method Room Air Intake Visit Reasons: mat Allergies gabapentin Allergy (Intermediate, Verified 07/24/23 10:16) Rash aripiprazole [From Abilify] Adverse Reaction (Intermediate, Verified 07/24/23 10:16) Agitated bupropion [From Wellbutrin SR] Adverse Reaction (Intermediate, Verified 07/24/23 10:16) Agitated HPI HPI mat: Details: Patient presents for follow up Last hydromorphone 7 days ago motivation decreased, denies any cravings or thoughts of buying more denies any withdrawal sx, no impact on sleep or appetite PFSH Medical History (Updated 07/06/23 @ 17:48 by Shakira Stevens CNP) Spinal cord stimulator dysfunction Fatty liver Failed back syndrome Sleep apnea 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 Generalized anxiety disorder Depression, major, severe recurrence Controlled diabetes mellitus type II without complication Hypertension Surgical History Hx of spinal surgery H/O colonoscopy History of surgery S/P placement of nerve stimulator Social History Are you a primary tree care foreman to a significant other at home: No Do you presently have visiting nurse or other home services: No Alcohol intake: current Alcohol intake frequency: 3 or more drinks per day Alcohol type: beer Patient Tobacco Use Status: Former Tobacco user Quit Date: age late 20's Tobacco use type: Cigarette Years Smoked: 2.5 Review of Systems Const Reports as per HPI Physical Exam Vital Signs: Last Vital Signs Pulse 97 07/24/23 10:18 BP 118/84 07/24/23 10:18 Pulse Ox 97 07/24/23 10:18 Oxygen Delivery Method Room Air 07/24/23 10:18 Const General: cooperative, healthy appearing and no acute distress Nutritional Appearance: average body habitus Orientation/consciousness: patient oriented x3 Limitations: no limitations Skin General skin exam: no rashes or lesions noted Neuro General: patient oriented x3 Psych Appearance: well kempt Speech and movement: Clear speech present Affect: normal affect Attitude: cooperative Thought process: Normal thought process present Assessment & Plan Assessment & Plan (1) Opioid use disorder, mild, abuse: Code(s): F11.10 - Opioid abuse, uncomplicated Category: Medical Plan: * will not be starting buprenorphine--no withdrawal, no cravings, and no prior history of opioid use * agreeable to calling office should he have questions or if he is considering seeking out opiates again * no follow up at this time--will be seeing psychiatric provider tmrharjinder
[2023-07-24 10:18] VITALS: BP 118/84; PULSE 97; O2SAT 97
== END 2023-07-24 10:45 | disposition home or self-care (01) ==
PROVIDERS: PCP Family Medicine; Visit Provider Nurse Practitioner Psychiatric/Mental Health
DX: F11.10 Opioid abuse, uncomplicated (principal)
CPT/HCPCS: 99213

== ENCOUNTER → 2023-07-24 10:17 | Outpatient (BNVA) | payer MEDICARE, SELFPAY | PROVIDERS: PCP Family Medicine; Visit Provider Nurse Practitioner Psychiatric/Mental Health | DX: F11.20 Opioid dependence, uncomplicated (principal) | CPT/HCPCS: 99212 ==

== ENCOUNTER 2023-07-25 11:34 | Outpatient (AMB) | payer OTHER, SELFPAY ==
--- NOTE | 2023-07-25 11:52 | MHC.OFFVISPS ---
Intake Intake Visit Reasons: depression Allergies gabapentin Allergy (Intermediate, Verified 07/24/23 10:16) Rash aripiprazole [From Abilify] Adverse Reaction (Intermediate, Verified 07/24/23 10:16) Agitated bupropion [From Wellbutrin SR] Adverse Reaction (Intermediate, Verified 07/24/23 10:16) Agitated HPI- Psychiatric Chief Complaint: depression HPI Narrative: Pt will be going to [place] to visit his brother he does have a lot of anxiety unclear how to structure his time. 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 He denies SI denies use of opiates states he is significantly cut down on drinking and wonder 2 beers night he did have a consultation Laura Stevens nurse practitioner from the [facility] and he is open to the possibility use of Suboxone if needed PHQ-9 in GED are elevated Past Psychiatric History: THE PATIENT HAS A LONG HISTORY OF TREATMENT RESISTANT DEPRESSION HISTORY OF ADD CHRONIC DIFFICULTY TAKING CARE OF HIS OWN NEEDS HISTORY OF ALCOHOL ABUSE STRESSED TAKING CARE OF HIS LONG-TERM PARTNER Mental Status Exam Mental Status Exam Patient Appearance: Well Grooomed Patient Orientation: Person, Place, Time and Situation Level of Consciousness: Awake Patient Behavior: Appropriate Mood Description: Constricted, Anxious and Apprehensive Affect Description: Appropriate and Constricted Patient Cognition Impaired: No Ability to Follow Directions: Good Speech Pattern: Clear Memory Description: Intact Hallucinations: None Delusions: Not Present Thought Process: Intact and Goal Oriented Thought Content: positive for Goal Oriented, positive for Preoccupation, negative for Suicidal Ideation or negative for Homicidal Ideation Depressive Symptoms: Increased Anxiety, Increased Irritability, Low Self Esteem and Difficulty Concentrating Judgement: Good Judgement and Insight: Patient was open to the use of Suboxone in transition from using Dilaudid denies SI ongoing does complain of significant anxiety is open to the possibility of S ketamine Assessment and Plan Assessment & Plan (1) Major depressive disorder in partial remission: Status: Acute Code(s): F32.4 - Major depressive disorder, single episode, in partial remission (2) Chronic pain syndrome: Status: Acute Code(s): G89.4 - Chronic pain syndrome (3) Sleep apnea with use of continuous positive airway pressure (CPAP): Status: Acute Code(s): G47.30 - Sleep apnea, unspecified (4) Generalized anxiety disorder: Status: Acute Code(s): F41.1 - Generalized anxiety disorder Plan Patient has had some depression and a he continues on lamotrigine which has been helpful her antidepressants generally have not we did try augmentation with Abilify which he did not tolerate nxiety symptoms. We have talked about the use of spravato he did get an addiction consult and the possibility of Suboxone was discussed in addition to naltrexone. Patient has markedly cut back on his drinking he has a history of abusive drinking he is aware of the relationship between anxiety depression in his alcohol use. No self-harming thoughts he is traveling to [place] to visit his brother he does have significant anxiety his life is in a great deal transition since his and this was someone he had taken of his whole life his partner was significantly hearing impaired and had cancer-related illness number of months ago. Patient has been in regular psychotherapy ove he does have hobbies that he enjoys including hiking photography particularly nature photography r the past couple of months with Dr. Alexandria Bartholomew and this has been helpful he does have a major life transition there is a lack of regular structure. We did discuss use of BuSpar for augmentation he will start after he gets back from [place] target symptoms are anxiety and depressive symptoms recommended volunteer work possibly other part-time work TMS had not been helpful in the past Medications: New buspirone half tab 2 x day x 1 week then 1 tab 2 x day 10 mg PO BID 60 tabs 1RF Counseling and coordination of Care Details: I spent [] minutes reviewing the record, seeing the patient and documenting in the medical record. Counseling provided to the patient/caregiver as outlined below. Addressed patient/caregiver concerns regarding current medication regime including effective adherence. Addressed patient/caregiver concerns regarding diagnosis and prognosis including accuracy of diagnosis, prognosis over time, impact of diagnosis. Addressed patient/caregiver concerns regarding impact of recent stressors. [facility] Medical History (Updated 07/06/23 @ 17:48 by Shakira Stevens CNP) Spinal cord stimulator dysfunction Fatty liver Failed back syndrome Sleep apnea 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 Generalized anxiety disorder Depression, major, severe recurrence Controlled diabetes mellitus type II without complication Hypertension Surgical History Hx of spinal surgery H/O colonoscopy History of surgery S/P placement of nerve stimulator Social History Are you a primary health care sanitary technician to a significant other at home: No Do you presently have visiting nurse or other home services: No Alcohol intake: current Alcohol intake frequency: 3 or more drinks per day Alcohol type: beer Patient Tobacco Use Status: Former Tobacco user Quit Date: age late 20's Tobacco use type: Cigarette Years Smoked: 2.5 Social History: Pts parents are used work at [employer] nature identifies as dye no children 1 brother in [place] Substance History: History of alcoholism denies on I'History of alcoholism denies ongoing drinking Coding Level of Care Code Est Pt Level 4 (25284) Diagnoses Major depressive disorder in partial remission F32.4 Chronic pain syndrome G89.4 Sleep apnea with use of continuous positive airway pressure (CPAP) G47.30 Generalized anxiety disorder F41.1
== END 2023-07-25 13:00 | disposition home or self-care (01) ==
LOC: HO.HOP 11:34
PROVIDERS: PCP Family Medicine; Visit Provider Psychiatry & Neurology Psychiatry
DX: F32.4 Major depressive disorder, single episode, in partial remission (principal); G89.4 Chronic pain syndrome; G47.30 Sleep apnea, unspecified; F41.1 Generalized anxiety disorder
CPT/HCPCS: 99214

== ENCOUNTER → 2023-07-25 11:34 | Outpatient (BNVA) | payer MEDICARE, SELFPAY | PROVIDERS: PCP Family Medicine; Visit Provider Psychiatry & Neurology Psychiatry ==

== ENCOUNTER 2023-08-11 08:33 | Outpatient (AMB) | payer MEDICARE, SELFPAY ==
--- NOTE | 2023-08-11 08:43 | A.OFFVIS_ITS ---
Vital Signs 3 08/11/23 08:51 Height 5 ft 3 in Weight 183 lb 2 oz BMI 32.4 BP 132/83 Blood Pressure Location Lt brachial Position Sitting Pulse 90 Pulse Source Pulse Oximeter Pulse Oximetry (%) 97 Oxygen Delivery Method Room Air Intake Visit Reasons: follow up CT results Intake Note: Pain today07/15 [employer] Required: No Accompanied by: Self / Same As Patient Allergies gabapentin Allergy (Intermediate, Verified 08/11/23 08:51) Rash aripiprazole [From Abilify] Adverse Reaction (Intermediate, Verified 08/11/23 08:51) Agitated bupropion [From Wellbutrin SR] Adverse Reaction (Intermediate, Verified 08/11/23 08:51) Agitated HPI Comments Details: Patient presents today for follow up to review recent lumbar spine CT scan results. Reports bilateral buttocks and posterior and lateral leg pain with sitting and sleeping. Denies any significant pain with walking or standings. He walks 4-4.5 miles daily and also exercises at home. Denies any fever, abdominal or groin pain, weakness, bladder or bowel dysfunction or saddle anesthesia. Patient reports increase low back pain extending to his sacral areas and into his legs after recent trip to [place] and prolonged sitting on the plane. PRIOR: Patient presents today to discuss interventional treatments for his chronic low back pain. He is one week s/p SCS implant removal on 05/29/[address] Barclay. His two back incisions are open to air with intact Steri Strips. Incision sites look clean, dry, intact, no redness, no swelling, no pathological discharge. Per [facility] discharge note summary: We were unable to retrieve all the components of the spinal cord stimulator that were deeper in near the spinal cord. You will need to find out if your device was/is MRI compatible before undergoing an MRI. You should make any future arrangements of MRI imaging aware you still have the residual pieces of stimulator still in your spine. Patient reports he reached out to SCS device benefits representative and was told that previous SCS implant was MRI compatible. We will proceed with lumbar spine MRI to assess for neural integrity and compression and follow up on previous MRI findings. Patient continues to endorse lower back pain and exacerbation with lumbar flexion indicating a discogenic source. We previously discussed BVN ablation/Intracept procedure and reviewed this again today. His previous lumbar spine MRI showed degenerative disc height loss with associated degenerative discogenic endplate changes. Denies any recent cough, cold, infection, fever or other significant changes in medical history since last office visit. Past Procedures: 05/29/23: SCS implant removal by Dr. Barclay, [facility] 03/14/23: Caudal JOSE LUIS with [id number]% ongoing pain relief PRIOR: Patient is a pleasant 67 years old male with history of previous synovial cyst resection, laminectomy and Kinde Sci SCS implant in 03/2022 presents today for evaluation of low back pain that radiates to his legs laterally. Patient reports his SCS device was reprogrammed 15 times last month without any improvement in his symptoms. It was surgically implanted by Dr. Barclay and patient is considering to remove it as it is active but not providing him any pain relief. His pain is worse at night while sleeping with laying down and with prolonged sitting or standing during the day. Patient rates his pain >8/10. Pain negatively affects his daily activities, functioning, sleep, social activities, mood and quality of life. He ambulates without any limitations and at times wakes in the middle of the night to walk to alleviate his leg symptoms. L:umbar spine MRI is noted below, patient reports he was deemed non surgical for any additional surgery at this time. Denies any fever, abdominal or groin pain, weight loss, weakness, bladder or bowel dysfunction or saddle anesthesia. 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 Generalized anxiety disorder Depression, major, severe recurrence Controlled diabetes mellitus type II without complication Hypertension Surgical History Hx of spinal surgery H/O colonoscopy History of surgery S/P placement of nerve stimulator Social History Are you a primary child care centre manager to a significant other at home: No Do you presently have visiting nurse or other home services: No Alcohol intake: current Alcohol intake frequency: 3 or more drinks per day Alcohol type: beer Patient Tobacco Use Status: Former Tobacco user Quit Date: age late 20's Tobacco use type: Cigarette Years Smoked: 2.5 Review of Systems Const All systems reviewed & are unremarkable except as noted in HPI and below Physical Exam General: Appears afebrile. Alert and oriented. Mood and affect appropriate. Follows and participates in conversation appropriately. Respiratory effort is unlabored. No cough. Able to transition from sit to stand unassisted. Ambulates with bilaterally normal heel strike and toe off. Back/Spine/Pelvis Other: Lumbar ROM limited. Can flex forward to 70-75 degrees and extend to 5-10 degrees before experiencing lumbar pain. No midline tenderness to palpation in the lumbar spine. Lumbar extension and flexion reproduces mild symptoms. Demonstrates 5/5 strength of quadriceps bilaterally as well as flexion/dorsiflexion of bilateral feet against resistance. 2+ pedal pulses bilaterally. Seated straight leg rise with dorsiflexion negative bilaterally. +1 patellar and diminished achilles reflexes bilaterally. Facet loading test positive bilaterally. No groin pain with I/E hip rotations. Valsalva maneuver negative. Cervical Spine: cervical muscular tenderness and No Cervical spine tenderness Thoracic/Lumbar Spine: thoracic and lumbar spine normal to inspection, Thoracic/lumbar spine scar(s) (x2, well healed), Lasegue's sign negative, straight leg raise negative bilaterally, pain with thoraco-lumbar ROM, paraspinal muscle tenderness, thoraco-lumbar ROM limited, No thoracic spinal tenderness and lumbar spinal tenderness (L5-S1) Pelvis: buttock tenderness bilaterally and no sciatic notch tenderness Sacroiliac joints: bilaterally (+Crow's, +Stinchfield, +Pelvic compression) tender to palpation Neuro General: moves all extremities and Normal light touch and pain sensation Results Reviewed Results Reviewed: XR LUMBOSACRAL SPINE WITH OBLIQUES 02/05/23 CLINICAL INFORMATION: Low back pain. FINDINGS: Electrical stimulator pack overlying the right lower quadrant with leads projecting cephalad overlying the lower thoracic spine, with tips incompletely imaged. Facet arthritis at the [id number] lumbar spine. The bones are diffusely demineralized. Atherosclerotic aortic calcifications. Advanced degenerative changes in the imaged lower thoracic. Moderate multilevel lumbar spondylosis with multilevel loss of disc space height. Minimal grade 1 retrolisthesis of L2 on L3, L3 on L4, and L4 on L5. IMPRESSION: Multilevel degenerative changes in the lumbar spine. CT LUMBAR SPINE WITHOUT CONTRAST 07/17/23 CLINICAL INFORMATION: Vertebrogenic low back pain FINDINGS: Trace retrolisthesis at L2-L3. Diffuse sclerosis of the S1 vertebra, likely degenerative. No acute compression fracture. The vertebral body heights are preserved. Mild disc height loss at L2-L3. Multilevel endplate osteophytosis. Please note that evaluation is limited in the absence of intrathecal contrast material. T12-L1: No significant spinal canal or neural foraminal narrowing. L1-L2: Diffuse disc bulge. No significant spinal canal or neural foraminal narrowing. L2-L3: Diffuse disc bulge. Mild left neural foraminal narrowing. No significant spinal canal stenosis. L3-L4: Diffuse disc bulge and bilateral facet arthrosis. No significant spinal canal stenosis. Mild bilateral neural foraminal narrowing. L4-L5: Diffuse disc bulge and bilateral facet arthrosis. No significant spinal canal stenosis. Mild bilateral neural foraminal narrowing. L5-S1: No significant spinal canal or neural foraminal narrowing. The paravertebral soft tissues are unremarkable. Atherosclerotic ossifications of the abdominal aorta and its branches. 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 No high-grade spinal canal stenosis. Mild neural foraminal narrowing at multiple levels. Assessment & Plan Assessment & Plan (1) Lumbar spondylosis: Code(s): M47.816 - Spondylosis without myelopathy or radiculopathy, lumbar region Category: Medical (2) Lumbar degenerative disc disease: Code(s): M51.36 - Other intervertebral disc degeneration, lumbar region Category: Medical (3) Chronic pain syndrome: Code(s): G89.4 - Chronic pain syndrome Category: Medical (4) Failed back syndrome: Code(s): M96.1 - Postlaminectomy syndrome, not elsewhere classified Category: Medical (5) Bilateral lumbar radiculopathy: Code(s): M54.16 - Radiculopathy, lumbar region Category: Medical (6) Sacroiliac joint pain: Code(s): M53.3 - Sacrococcygeal disorders, not elsewhere classified Category: Medical Plan Lumbar CT scan results reviewed with patient today and are noted for multilevel degenerative spondyloarthropathy of the lumbar spine without high-grade spinal canal stenosis. Mild neural foraminal narrowing at multiple levels and diffuse sclerosis of the S1 vertebra. We will proceed with Bilateral Diagnostic SIJ injection with local and fluoroscopy as next steps to address his chronic low back pain. If positive response, will consider therapeutic injections, neuromodulation or RFA procedures. Expectations, risks and benefits were reviewed. Patient is aware he will be contacted to schedule this procedure. All questions were answered and the patient is in agreement of plan. Follow-up after injections and sooner as needed. Medications: Discontinued 2 oxycodone Partial Fill upon patient request. Discontinued Reason: Patient Completed Course 5 mg PO Q8-10H PRN 20 tabs 0RF pain oxycodone Partial Fill upon patient request. Discontinued Reason: Patient Completed Course 5 mg PO Q12H 15 days PRN 30 tabs 0RF pain G89.4 - Chronic pain syndrome, M47.816 - Spondylosis without myelopathy or radiculopathy, lumbar region, M51.36 - Other intervertebral disc degeneration, lumbar region, T85.192A - Other mechanical complication of implanted electronic neurostimulator of spinal cord electrode (lead), initial encounter Coding Level of Care Code Est Pt Level 4 (79435) Diagnoses Lumbar spondylosis M47.816 Lumbar degenerative disc disease M51.36 Chronic pain syndrome G89.4 Failed back syndrome M96.1 Bilateral lumbar radiculopathy M54.16 Sacroiliac joint pain M53.3
[2023-08-11 08:51] VITALS: BP 132/83; PULSE 90; O2SAT 97; BMI 32.4
== END 2023-08-11 09:01 | disposition home or self-care (01) ==
PROVIDERS: PCP Family Medicine; Visit Provider Nurse Practitioner Family
DX: M47.816 Spondylosis without myelopathy or radiculopathy, lumbar region (principal); M51.36 Other intervertebral disc degeneration, lumbar region; G89.4 Chronic pain syndrome; M96.1 Postlaminectomy syndrome, not elsewhere classified; M54.16 Radiculopathy, lumbar region; M53.3 Sacrococcygeal disorders, not elsewhere classified
CPT/HCPCS: 99214

== ENCOUNTER → 2023-08-11 08:33 | Outpatient (BNVA) | payer MEDICARE, SELFPAY | PROVIDERS: PCP Family Medicine; Visit Provider Nurse Practitioner Family | DX: M47.816 Spondylosis without myelopathy or radiculopathy, lumbar region (principal); M51.36 Other intervertebral disc degeneration, lumbar region; M96.1 Postlaminectomy syndrome, not elsewhere classified; M54.16 Radiculopathy, lumbar region; M53.3 Sacrococcygeal disorders, not elsewhere classified; G89.4 Chronic pain syndrome | CPT/HCPCS: 99212 ==

== ENCOUNTER 2023-08-19 06:54 | Outpatient (REF) | payer MEDICARE, SELFPAY ==
--- NOTE | ~2023-08-19 | FL_ITS ---
EXAMINATION: XR FLUOROSCOPY WITH IMAGES CLINICAL INFORMATION: Sacrococcygeal disorders. COMPARISON: None available. TECHNIQUE: Fluoroscopy Supervised By: Dr. Goldberg. Fluoroscopy Time: 0.3 min. Cumulative Dose: 4.46 mGy. DAP: 0.0774 Gycm2. Images: 2. FINDINGS: Intraoperative fluoroscopy and spot films were performed during a procedure in the OR. Spinal needles are seen in each as SI joint with contrast injection around the needle and in the joint. Please see Dr. Goldberg's report for complete details. FL/FL guidance in treatment room IMPRESSION: Intraoperative fluoroscopy and spot films were obtained. Please see Dr. Goldberg's report for complete details.
== END 2023-08-19 06:55 | disposition home or self-care (01) ==
LOC: CF 06:54
PROVIDERS: PCP Family Medicine; Visit Provider Anesthesiology
DX: M53.3 Sacrococcygeal disorders, not elsewhere classified (principal); M47.26 Other spondylosis with radiculopathy, lumbar region; M51.36 Other intervertebral disc degeneration, lumbar region; G89.4 Chronic pain syndrome; M96.1 Postlaminectomy syndrome, not elsewhere classified; Z96.82 Presence of neurostimulator
CPT/HCPCS: 27096; J2795; Q9967

== ENCOUNTER 2023-08-19 09:16 | Outpatient (AMB) | payer MEDICARE, SELFPAY ==
--- NOTE | 2023-08-19 09:10 | MHC.OFFVIS ---
Vital Signs 08/19/23 09:18 08/19/23 10:49 Height 5 ft 3 in Weight 183 lb BMI 32.4 BP 118/72 124/88 Blood Pressure Location Lt brachial Lt brachial Position Sitting Sitting Respiration 18 18 Pulse 76 80 Pulse Source Pulse Oximeter Pulse Oximeter Pulse Oximetry (%) 98 95 Oxygen Delivery Method Room Air Room Air Comment Pre-Op Post-Op Intake Visit Reasons: Shawn Dx SIJ inj Allergies gabapentin Allergy (Intermediate, Verified 08/11/23 08:51) Rash aripiprazole [From Abilify] Adverse Reaction (Intermediate, Verified 08/11/23 08:51) Agitated bupropion [From Wellbutrin SR] Adverse Reaction (Intermediate, Verified 08/11/23 08:51) Agitated [facility] Medical History Spinal cord stimulator dysfunction Fatty liver Failed back syndrome Sleep apnea 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 Generalized anxiety disorder Depression, major, severe recurrence Controlled diabetes mellitus type II without complication Hypertension Surgical History Hx of spinal surgery H/O colonoscopy History of surgery S/P placement of nerve stimulator Social History Are you a primary resident care coordinator to a significant other at home: No Do you presently have visiting nurse or other home services: No Alcohol intake: current Alcohol intake frequency: 3 or more drinks per day Alcohol type: beer Patient Tobacco Use Status: Former Tobacco user Quit Date: age late 20's Tobacco use type: Cigarette Years Smoked: 2.5 Physical Exam Vital Signs: Last Vital Signs Pulse 80 08/19/23 10:49 Resp 18 08/19/23 10:49 BP 124/88 08/19/23 10:49 Pulse Ox 95 08/19/23 10:49 Oxygen Delivery Method Room Air 08/19/23 10:49 BMI result Body Mass Index 32.4 Assessment & Plan Assessment & Plan (1) Lumbar spondylosis: Code(s): M47.816 - Spondylosis without myelopathy or radiculopathy, lumbar region Category: Medical (2) Lumbar degenerative disc disease: Code(s): M51.36 - Other intervertebral disc degeneration, lumbar region Category: Medical (3) Chronic pain syndrome: Code(s): G89.4 - Chronic pain syndrome Category: Medical (4) Failed back syndrome: Code(s): M96.1 - Postlaminectomy syndrome, not elsewhere classified Category: Medical (5) Bilateral lumbar radiculopathy: Code(s): M54.16 - Radiculopathy, lumbar region Category: Medical (6) Sacroiliac joint pain: Code(s): M53.3 - Sacrococcygeal disorders, not elsewhere classified Category: Medical Plan: Bilateral diagnostic sacroiliac joint injection Informed consent was explained thoroughly to the patient. All questions about benefits and risks for the procedure were answered. Patient came to the operating room and was positioned prone on the operating table with the pillow under the pelvis. Time out was performed delineating name and of the patient, allergies and the nature of the procedure. The lower back and buttocks of the patient were prepped with ChloraPrep prepped and draped with sterile utility towels. C-arm was brought over the operating field and sq picture of patient's pelvis was demonstrated on the screen. For the right joint tilting C-arm contralateral to the site of the joint the most posterior portion of the joints was superimposed with anterior silhouette of the joint. Skin was injected in the projection of the joint slightly medial to the location of the joint with 25 gauge 1/2 inch needle using local lidocaine 2% .After that 22 gauge 3 and 1/2 inch needle was driven to the right joint in tunnel vision fashion. When needle entered the joint capsule injection of the contrast was performed demonstrating intra-articular and minimally periarticular spread of the contrast. After that 4 cc. of ropivacaine 0.5% was injected into the joint. After that attention was concentrated on the left joint where the procedure was performed in mirroring fashion. Upon completion of the injections the needle was removed Sterile dressing was applied. Upon completion of the injection patient was taken outside of the operating room to the recovery room where recovered uneventfully. Plan Lumbar CT scan results reviewed with patient today and are noted for multilevel degenerative spondyloarthropathy of the lumbar spine without high-grade spinal canal stenosis. Mild neural foraminal narrowing at multiple levels and diffuse sclerosis of the S1 vertebra. We will proceed with Bilateral Diagnostic SIJ injection with local and fluoroscopy as next steps to address his chronic low back pain. If positive response, will consider therapeutic injections, neuromodulation or RFA procedures. Expectations, risks and benefits were reviewed. Patient is aware he will be contacted to schedule this procedure. All questions were answered and the patient is in agreement of plan. Follow-up after injections and sooner as needed. Orders: Orders FL guidance in treatment room Today M53.3 - Sacrococcygeal disorders, not elsewhere classified Coding Level of Care Code Procedure Only Diagnoses Lumbar spondylosis M47.816 Lumbar degenerative disc disease M51.36 Chronic pain syndrome G89.4 Failed back syndrome M96.1 Bilateral lumbar radiculopathy M54.16 Sacroiliac joint pain M53.3
[2023-08-19 09:18] VITALS: BP 118/72; PULSE 76; RESP 18; O2SAT 98; BMI 32.4
[2023-08-19 10:49] VITALS: BP 124/88; PULSE 80; RESP 18; O2SAT 95
== END 2023-08-19 10:24 | disposition home or self-care (01) ==
LOC: HO.PMCPRC 09:16
PROVIDERS: PCP Family Medicine; Visit Provider Anesthesiology
DX: M53.3 Sacrococcygeal disorders, not elsewhere classified (principal)
CPT/HCPCS: 27096

== ENCOUNTER → 2023-08-22 11:02 | Outpatient (BNVA) | payer MEDICARE, SELFPAY | PROVIDERS: PCP Family Medicine; Visit Provider Nurse Practitioner Family | DX: I87.2 Venous insufficiency (chronic) (peripheral) (principal); M47.816 Spondylosis without myelopathy or radiculopathy, lumbar region; M51.36 Other intervertebral disc degeneration, lumbar region; M54.16 Radiculopathy, lumbar region; M53.3 Sacrococcygeal disorders, not elsewhere classified; M96.1 Postlaminectomy syndrome, not elsewhere classified; Z96.82 Presence of neurostimulator | CPT/HCPCS: 99212 ==

== ENCOUNTER 2023-08-22 11:03 | Outpatient (AMB) | payer MEDICARE, SELFPAY ==
--- NOTE | 2023-08-22 11:03 | A.OFFVIS_ITS ---
Vital Signs 3 08/22/23 11:06 Height 5 ft 3 in Weight 183 lb BMI 32.4 BP 138/83 Blood Pressure Location Rt brachial Position Sitting Pulse 84 Pulse Source Pulse Oximeter Pulse Oximetry (%) 99 Oxygen Delivery Method Room Air Intake Visit Reasons: s/p leticia Dx SIJ inj Intake Note: Pain today 06/14 Medical Staff Services Manager Required: No Accompanied by: Self / Same As Patient Allergies gabapentin Allergy (Intermediate, Verified 08/22/23 11:07) Rash aripiprazole [From Abilify] Adverse Reaction (Intermediate, Verified 08/22/23 11:07) Agitated bupropion [From Wellbutrin SR] Adverse Reaction (Intermediate, Verified 08/22/23 11:07) Agitated HPI Comments Details: Patient presents today to assess response to Bilateral Diagnostic SIJ injections on 08/19/[address] Goldberg. Patient reports no pain in his lower back and buttock since injection 3 days ago and reports 80% pain relief for 6-8 hours after the injections. He reports going for a walk after the procedure and was able to tolerate 4 miles without significant discomfort and reports improved sleep same night after the procedure. Patient is interested to proceed with therapeutic SIJ injections as next steps. He continues to experience chronic leg pain with sleeping and sitting. Denies any recent cough, cold, infection, fever, any significant changes in her medical history, medications or recent hospitalizations. Past Procedures: 08/19/23: Bilateral Diagnostic SIJ injections-80% pain relief for 8 hours, ongoing pain relief in lower back and sacral areas. PRIOR: Patient presents today for follow up to review recent lumbar spine CT scan results. Reports bilateral buttocks and posterior and lateral leg pain with sitting and sleeping. Denies any significant pain with walking or standings. He walks 4-4.5 miles daily and also exercises at home. Denies any fever, abdominal or groin pain, weakness, bladder or bowel dysfunction or saddle anesthesia. Patient reports increase low back pain extending to his sacral areas and into his legs after recent trip to [place] and prolonged sitting on the plane. PRIOR: Patient presents today to discuss interventional treatments for his chronic low back pain. He is one week s/p SCS implant removal on 05/29/[address] Barclay. His two back incisions are open to air with intact Steri Strips. Incision sites look clean, dry, intact, no redness, no swelling, no pathological discharge. Per [facility] discharge note summary: We were unable to retrieve all the components of the spinal cord stimulator that were deeper in near the spinal cord. You will need to find out if your device was/is MRI compatible before undergoing an MRI. You should make any future arrangements of MRI imaging aware you still have the residual pieces of stimulator still in your spine. Patient reports he reached out to SCS device ambulatory service representative and was told that previous SCS implant was MRI compatible. We will proceed with lumbar spine MRI to assess for neural integrity and compression and follow up on previous MRI findings. Patient continues to endorse lower back pain and exacerbation with lumbar flexion indicating a discogenic source. We previously discussed BVN ablation/Intracept procedure and reviewed this again today. His previous lumbar spine MRI showed degenerative disc height loss with associated degenerative discogenic endplate changes. Denies any recent cough, cold, infection, fever or other significant changes in medical history since last office visit. Past Procedures: 05/29/23: SCS implant removal by Dr. Barclay, [facility] 03/14/23: Caudal JOSE LUIS with [id number]% ongoing pain relief PRIOR: Patient is a pleasant 67 years old male with history of previous synovial cyst resection, laminectomy and [facility] SCS implant in 03/2022 presents today for evaluation of low back pain that radiates to his legs laterally. Patient reports his SCS device was reprogrammed 15 times last month without any improvement in his symptoms. It was surgically implanted by Dr. Barclay and patient is considering to remove it as it is active but not providing him any pain relief. His pain is worse at night while sleeping with laying down and with prolonged sitting or standing during the day. Patient rates his pain >8/10. Pain negatively affects his daily activities, functioning, sleep, social activities, mood and quality of life. He ambulates without any limitations and at times wakes in the middle of the night to walk to alleviate his leg symptoms. Lumbar spine MRI is noted below, patient reports he was deemed non surgical for any additional surgery at this time. Denies any fever, abdominal or groin pain, weight loss, weakness, bladder or bowel dysfunction or saddle anesthesia. Location Waist down, radiates to bilateral legs, worse on right leg Duration Chronic pain > 2 years Characteristics of symptom or complaint Aching, dull, heavy, tight, burning, aching, pinching, squeezing Aggravating or associated factors Sleeping, sitting, Relieving factors Standing, stretching, amitriptyline, pregabalin, gabapentin-no relief Treatment Back surgery, injections, lumbar SCS [facility] 03/2022-no relief [facility] Medical History Spinal cord stimulator dysfunction Fatty liver Failed back syndrome Sleep apnea 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 Generalized anxiety disorder Depression, major, severe recurrence Controlled diabetes mellitus type II without complication Hypertension Surgical History Hx of spinal surgery H/O colonoscopy History of surgery S/P placement of nerve stimulator Social History Are you a primary healthcare economics consultant to a significant other at home: No Do you presently have visiting nurse or other home services: No Alcohol intake: current Alcohol intake frequency: 3 or more drinks per day Alcohol type: beer Patient Tobacco Use Status: Former Tobacco user Quit Date: age late 20's Tobacco use type: Cigarette Years Smoked: 2.5 Review of Systems Const All systems reviewed & are unremarkable except as noted in HPI and below Physical Exam Vital Signs: Last Vital Signs Pulse 84 08/22/23 11:06 BP 138/83 08/22/23 11:06 Pulse Ox 99 08/22/23 11:06 Oxygen Delivery Method Room Air 08/22/23 11:06 BMI result Body Mass Index 32.4 General: Appears afebrile. Alert and oriented. Mood and affect appropriate. Follows and participates in conversation appropriately. Respiratory effort is unlabored. No cough. Able to transition from sit to stand unassisted. Ambulates with bilaterally normal heel strike and toe off. Back/Spine/Pelvis Other: Lumbar ROM limited. Can flex forward to 70-80 degrees and extend to 5-10 degrees before experiencing lumbar pain. No midline tenderness to palpation in the lumbar spine. Lumbar extension and flexion reproduces mild symptoms. Demonstrates 5/5 strength of quadriceps bilaterally as well as flexion/dorsiflexion of bilateral feet against resistance. 2+ pedal pulses bilaterally. Seated straight leg rise with dorsiflexion negative bilaterally. +1 patellar and diminished achilles reflexes bilaterally. Facet loading test positive bilaterally. No groin pain with I/E hip rotations. Valsalva maneuver negative. Cervical Spine: cervical muscular tenderness and No Cervical spine tenderness Thoracic/Lumbar Spine: thoracic and lumbar spine normal to inspection, Thoracic/lumbar spine scar(s) (x2, well healed), Lasegue's sign negative, straight leg raise negative bilaterally, No thoracic spinal tenderness and lumbar spinal tenderness (L5-S1) Pelvis: no buttock tenderness and no sciatic notch tenderness Sacroiliac joints: bilaterally (+Crow's, +Stinchfield, +Pelvic compression) tender to palpation Neuro General: moves all extremities and Normal light touch and pain sensation Extrem General: Yes capillary refill normal, Yes no clubbing, cyanosis or edema and Yes no calf tenderness Results Reviewed Results Reviewed: XR LUMBOSACRAL SPINE WITH OBLIQUES 02/05/23 CLINICAL INFORMATION: Low back pain. FINDINGS: Electrical stimulator pack overlying the right lower quadrant with leads projecting cephalad overlying the lower thoracic spine, with tips incompletely imaged. Facet arthritis at the [id number] lumbar spine. The bones are diffusely demineralized. Atherosclerotic aortic calcifications. Advanced degenerative changes in the imaged lower thoracic. Moderate multilevel lumbar spondylosis with multilevel loss of disc space height. Minimal grade 1 retrolisthesis of L2 on L3, L3 on L4, and L4 on L5. IMPRESSION: Multilevel degenerative changes in the lumbar spine. CT LUMBAR SPINE WITHOUT CONTRAST 07/17/23 CLINICAL INFORMATION: Vertebrogenic low back pain FINDINGS: Trace retrolisthesis at L2-L3. Diffuse sclerosis of the S1 vertebra, likely degenerative. No acute compression fracture. The vertebral body heights are preserved. Mild disc height loss at L2-L3. Multilevel endplate osteophytosis. Please note that evaluation is limited in the absence of intrathecal contrast material. T12-L1: No significant spinal canal or neural foraminal narrowing. L1-L2: Diffuse disc bulge. No significant spinal canal or neural foraminal narrowing. L2-L3: Diffuse disc bulge. Mild left neural foraminal narrowing. No significant spinal canal stenosis. L3-L4: Diffuse disc bulge and bilateral facet arthrosis. No significant spinal canal stenosis. Mild bilateral neural foraminal narrowing. L4-L5: Diffuse disc bulge and bilateral facet arthrosis. No significant spinal canal stenosis. Mild bilateral neural foraminal narrowing. L5-S1: No significant spinal canal or neural foraminal narrowing. The paravertebral soft tissues are unremarkable. Atherosclerotic ossifications of the abdominal aorta and its branches. 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 No high-grade spinal canal stenosis. Mild neural foraminal narrowing at multiple levels. Assessment & Plan Assessment & Plan (1) Venous insufficiency of both lower extremities: Code(s): I87.2 - Venous insufficiency (chronic) (peripheral) Category: Medical (2) Lumbar spondylosis: Code(s): M47.816 - Spondylosis without myelopathy or radiculopathy, lumbar region Category: Medical (3) Lumbar degenerative disc disease: Code(s): M51.36 - Other intervertebral disc degeneration, lumbar region Category: Medical (4) Failed back syndrome: Code(s): M96.1 - Postlaminectomy syndrome, not elsewhere classified Category: Medical (5) Bilateral lumbar radiculopathy: Code(s): M54.16 - Radiculopathy, lumbar region Category: Medical (6) Sacroiliac joint pain: Code(s): M53.3 - Sacrococcygeal disorders, not elsewhere classified Category: Medical Plan Patient is status post diagnostic bilateral SIJ injections with good relief and improvement in his mobility, funcitoning and sleep. We will proceed with B ilateral Therapeutic SIJ injection with local and fluoroscopy. Also reviewed neuromodulation with PNS or RFA procedures as back up options. Expectations, risks and benefits were reviewed. Patient is aware he will be contacted to schedule this procedure. Patient also reports chronic leg pain at night while sleeping or prolonged sitting. Most recent Lumbar CT scan showed multilevel degenerative spondyloarthropathy of the lumbar spine without high-grade spinal canal stenosis. Mild neural foraminal narrowing at multiple levels and diffuse sclerosis of the S1 vertebra. We will obtain bilateral US venous duplex to rule out vascular pathology. All questions were answered and the patient is in agreement of plan. Follow-up after injections and sooner as needed. Orders: Orders 2 US venous duplex LE BI Today I87.2 - Venous insufficiency (chronic) (peripheral) Coding Level of Care Code Est Pt Level 4 (66020) Diagnoses Venous insufficiency of both lower extremities I87.2 Lumbar spondylosis M47.816 Lumbar degenerative disc disease M51.36 Failed back syndrome M96.1 Bilateral lumbar radiculopathy M54.16 Sacroiliac joint pain M53.3
[2023-08-22 11:06] VITALS: BP 138/83; PULSE 84; O2SAT 99; BMI 32.4
== END 2023-08-22 11:20 | disposition home or self-care (01) ==
PROVIDERS: PCP Family Medicine; Visit Provider Nurse Practitioner Family
DX: I87.2 Venous insufficiency (chronic) (peripheral) (principal); M47.816 Spondylosis without myelopathy or radiculopathy, lumbar region; M51.36 Other intervertebral disc degeneration, lumbar region; M96.1 Postlaminectomy syndrome, not elsewhere classified; M54.16 Radiculopathy, lumbar region; M53.3 Sacrococcygeal disorders, not elsewhere classified
CPT/HCPCS: 99213

== ENCOUNTER 2023-09-03 08:14 | Outpatient (REF) | payer MEDICARE, SELFPAY ==
--- NOTE | ~2023-09-03 | US_ITS ---
EXAMINATION: US LOWER EXTREMITY VENOUS (REFLUX EXAM), BILATERAL CLINICAL INDICATION: Chronic venous insufficiency with lower extremity varicose veins COMPARISON: None. TECHNIQUE: Color flow triplex imaging and compression Doppler was performed to evaluate both the deep and the superficial systems bilaterally. To evaluate the superficial system, the examination was performed in the upright position. Color-flow Doppler ultrasound and compression ultrasound were utilized. In addition, maneuvers were utilized to demonstrate reflux. FINDINGS: 1. DEEP VENOUS ULTRASOUND OF THE RIGHT LOWER EXTREMITY: Common Femoral Vein: Compressible, normal respiratory variation and augmented flow. Femoral Vein: Compressible, normal color flow and augmentation. Popliteal Vein: Compressible, normal augmentation. Deep Reflux: There is no evidence of reflux in the deep system in either the common femoral vein, superficial femoral or the popliteal vein. There is no evidence of a Valladares's cyst. 2. SUPERFICIAL ULTRASOUND WITH DOPPLER OF RIGHT LOWER EXTREMITY: GREAT SAPHENOUS VEIN: Saphenofemoral Junction: 0.4 cm; Reflux: 0 ms Proximal Thigh: 0.6 cm; Reflux: 0 ms Mid Thigh: 0.3 cm; Reflux: 0 ms Above Knee: 0.2 cm; Reflux: 0 ms At Knee: 0.3 cm; Reflux: 0 ms Below Knee: 0.3 cm; Reflux: 0 ms Mid Calf: 0.3 cm; Reflux: 0 ms Ankle: 0.3 cm; Reflux: 0 ms DUPLICATED MEDIAL GREAT SAPHENOUS VEIN: Diameter: None imaged Reflux: NA DUPLICATED LATERAL GREAT SAPHENOUS VEIN: Diameter: None imaged Reflux: NA SMALL SAPHENOUS VEIN: Saphenopopliteal Junction: 0.4 cm; Reflux: 0 ms Mid: 0.4 cm; Reflux: 0 ms Distal: 0.2 cm; Reflux: 0 ms VEIN OF GIACOMINI: Size: NA Reflux: NA PERFORATORS: Location: None significant Size: NA Reflux: NA VARICOSITIES: Location: Proximal thigh off the great saphenous vein Size: 0.3 cm Reflux: None 3. DEEP VENOUS ULTRASOUND OF THE LEFT LOWER EXTREMITY: Common Femoral Vein: Compressible, normal respiratory variation and augmented flow. Femoral Vein: Compressible, normal color flow and augmentation. Popliteal Vein: Compressible, normal augmentation. Deep Reflux: There is no evidence of reflux in the deep system in either the common femoral vein, superficial femoral or the popliteal vein. There is no evidence of a Valladares's cyst. 4. SUPERFICIAL ULTRASOUND WITH DOPPLER OF LEFT LOWER EXTREMITY: GREAT SAPHENOUS VEIN: Saphenofemoral Junction: 0.6 cm; Reflux: 0 ms Proximal Thigh: 0.6 cm; Reflux: 0 ms Mid Thigh: 0.3 cm; Reflux: 0 ms Above Knee: 0.3 cm; Reflux: 0 ms At Knee: 0.3 cm; Reflux: 0 ms Below Knee: 0.3 cm; Reflux: 0 ms Mid Calf: 0.3 cm; Reflux: 0 ms Ankle: 0.3 cm; Reflux: 0 ms DUPLICATED MEDIAL GREAT SAPHENOUS VEIN: Diameter: None imaged Reflux: NA DUPLICATED LATERAL GREAT SAPHENOUS VEIN: Diameter: None imaged Reflux: NA SMALL SAPHENOUS VEIN: Saphenopopliteal Junction: 0.5 cm; Reflux: 0 ms Proximal: 0.3 cm; Reflux: 0 ms Distal: 0.2 cm; Reflux: 0 ms VEIN OF GIACOMINI: Size: NA Reflux: NA PERFORATORS: Location: None significant Size: NA Reflux: NA VARICOSITIES: Location: Proximal thigh off the great saphenous vein Size: 0.3 cm Reflux: None US/US venous duplex LE BI IMPRESSION: Right: No significant venous insufficiency or reflux in the great saphenous vein or small saphenous vein. Left: No significant venous insufficiency or reflux in the great saphenous vein or small saphenous vein.
== END 2023-09-03 08:15 | disposition home or self-care (01) ==
LOC: HO.US 08:14
PROVIDERS: PCP Family Medicine; Visit Provider Nurse Practitioner Family
DX: I87.2 Venous insufficiency (chronic) (peripheral) (principal)
CPT/HCPCS: 93970

== ENCOUNTER 2023-09-18 10:32 | Outpatient (AMB) | payer MEDICARE, SELFPAY ==
--- NOTE | 2023-09-18 11:38 | MHC.OFFVISPS ---
Intake Intake Visit Reasons: depression Allergies gabapentin Allergy (Intermediate, Verified 10/28/23 09:11) Rash aripiprazole [From Abilify] Adverse Reaction (Intermediate, Verified 10/28/23 09:11) Agitated bupropion [From Wellbutrin SR] Adverse Reaction (Intermediate, Verified 10/28/23 09:11) Agitated Medication List - Last Reconciled 09/18/23 by Giuseppe Gallegos MD atorvastatin 40 mg PO QAM buspirone 15 mg PO BID glipizide ER 10 mg PO QAM lamotrigine 200 mg PO QAM lisinopril 40 mg PO QAM lorazepam 1 mg PO BEDTIME PRN naloxone 4 mg/actuation (Narcan) 1 spray intranasal Q2M sildenafil 50 mg PO DIRECTED trazodone 100 - 200 mg (1 - 2 x 100 mg) PO BEDTIME HPI- Psychiatric Chief Complaint: depression HPI Narrative: Patient seen psychiatric follow-up. Patient has generally been doing okay has not needed Suboxone not using any opiates still has periods of anxiety and dysphoria. He can be somewhat social has some contacts he does speak regularly with his brother the patient has been going for pain management and [facility] his spinal surgeon Dr. Roscoe esposito is also at [facility] his spinal stimulator was not useful and that has been removed I believe Past Psychiatric History: THE PATIENT HAS A LONG HISTORY OF TREATMENT RESISTANT DEPRESSION HISTORY OF ADD CHRONIC DIFFICULTY TAKING CARE OF HIS OWN NEEDS HISTORY OF ALCOHOL ABUSE STRESSED TAKING CARE OF HIS LONG-TERM PARTNER Mental Status Exam Mental Status Exam Patient Appearance: Well Grooomed and Appropriate Patient Orientation: Person, Place, Time and Situation Level of Consciousness: Awake and Appropriate Patient Behavior: Appropriate Mood Description: Constricted and Anxious Affect Description: Appropriate and Constricted Patient Cognition Impaired: No Ability to Follow Directions: Good Speech Pattern: Clear Memory Description: Intact Hallucinations: None Delusions: Not Present Thought Process: Intact and Goal Oriented Thought Content: positive for Goal Oriented, positive for Preoccupation, negative for Suicidal Ideation or negative for Homicidal Ideation Depressive Symptoms: Increased Anxiety, Increased Irritability, Low Self Esteem and Difficulty Concentrating Judgement: Good Judgement and Insight: Patient was open to the use of Suboxone in transition from using Dilaudid denies SI ongoing does complain of significant anxiety is open to the possibility of S ketamine Assessment and Plan Assessment & Plan (1) Major depressive disorder in partial remission: Status: Acute Code(s): F32.4 - Major depressive disorder, single episode, in partial remission (2) Generalized anxiety disorder: Status: Acute Code(s): F41.1 - Generalized anxiety disorder (3) Sacroiliac joint pain: Status: Acute Code(s): M53.3 - Sacrococcygeal disorders, not elsewhere classified Plan Patient's quality of life impaired by pain at sleep. He is going to pain management this appears to be somewhat helpful. He continues to walk regularly he becomes quite sad at times when he thinks about the places that used to hike with his . No SI future oriented still somewhat lost he does regularly see his therapist which has been quite helpful BuSpar for augmentation targeting anxiety and dysphoria Latuda was not tolerated Medications: Changed From buspirone half tab 2 x day x 1 week then 1 tab 2 x day 10 mg PO BID 60 tabs 1RF To buspirone 15 mg PO BID 60 tabs 2RF Refilled trazodone 100 - 200 mg (1 - 2 x 100 mg) PO BEDTIME 60 tabs 2RF Discontinued lurasidone must administer with food (at least 350 calories) Discontinued Reason: Patient no longer taking 20 mg PO DAILY 30 tabs 1RF Counseling and coordination of Care Pt. Self Management counseling: Maintenance-social rhythm and Greif counseling Medication management counseling: Effectiveness and Side effects Diagnosis and Prognosis Counseling: Adequacy of current interventions Details: I spent [30] minutes reviewing the record, seeing the patient and documenting in the medical record. Counseling provided to the patient/caregiver as outlined below. Addressed patient/caregiver concerns regarding current medication regime including effective adherence. Addressed patient/caregiver concerns regarding diagnosis and prognosis including accuracy of diagnosis, prognosis over time, impact of diagnosis. Addressed patient/caregiver concerns regarding impact of recent stressors. PFSH Medical History Spinal cord stimulator dysfunction Fatty liver Failed back syndrome Sleep apnea 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 Generalized anxiety disorder Depression, major, severe recurrence Controlled diabetes mellitus type II without complication Hypertension Surgical History Hx of spinal surgery H/O colonoscopy History of surgery S/P placement of nerve stimulator Social History Are you a primary career development manager to a significant other at home: No Do you presently have visiting nurse or other home services: No Alcohol intake: current Alcohol intake frequency: 3 or more drinks per day Alcohol type: beer Patient Tobacco Use Status: Former Tobacco user Tobacco use type: Cigarette Years Smoked: 2.5 Social History: Pts parents are used work at [employer] nature identifies as dye no children 1 brother in [place] Substance History: History of alcoholism denies on I'History of alcoholism denies ongoing drinking Coding Level of Care Code Est Pt Level 4 (40698) Diagnoses Major depressive disorder in partial remission F32.4 Generalized anxiety disorder F41.1 Sacroiliac joint pain M53.3
== END 2023-09-18 11:03 | disposition home or self-care (01) ==
LOC: HO.HOP 10:32
PROVIDERS: PCP Family Medicine; Visit Provider Psychiatry & Neurology Psychiatry
DX: F32.4 Major depressive disorder, single episode, in partial remission (principal); F41.1 Generalized anxiety disorder; M53.3 Sacrococcygeal disorders, not elsewhere classified
CPT/HCPCS: 99214

== ENCOUNTER → 2023-09-18 10:32 | Outpatient (BNVA) | payer MEDICARE, SELFPAY | PROVIDERS: PCP Family Medicine; Visit Provider Psychiatry & Neurology Psychiatry | DX: F32.4 Major depressive disorder, single episode, in partial remission (principal); F41.1 Generalized anxiety disorder; M53.3 Sacrococcygeal disorders, not elsewhere classified | CPT/HCPCS: 99212 ==

== ENCOUNTER 2023-09-30 06:15 | Outpatient (REF) | payer MEDICARE, SELFPAY ==
--- NOTE | ~2023-09-30 | FL_ITS ---
EXAMINATION: XR FLUOROSCOPY WITH IMAGES CLINICAL INFORMATION: Sacrococcygeal disorders. COMPARISON: None available. TECHNIQUE: Fluoroscopy Supervised By: Dr. Ramon Goldberg. Fluoroscopy Time: 25.4 seconds. Cumulative Dose: 6.2623 mGy. DAP: 2.7240 Gycm2. Images: 2. FINDINGS: Intraoperative fluoroscopy and spot films were performed during a procedure in the OR. A needle is seen overlying both the right and left SI joint with contrast media seen around the tips of the needles. Please correlate with Dr. Ramon Goldberg's report for complete details. FL/FL guidance in treatment room IMPRESSION: Intraoperative fluoroscopy and spot films were obtained. Please see Dr. Ramon Goldberg's report for complete details.
== END 2023-09-30 06:16 | disposition home or self-care (01) ==
LOC: CF 06:15
PROVIDERS: Visit Provider Anesthesiology
DX: M53.3 Sacrococcygeal disorders, not elsewhere classified (principal); M47.816 Spondylosis without myelopathy or radiculopathy, lumbar region; M51.36 Other intervertebral disc degeneration, lumbar region; M96.1 Postlaminectomy syndrome, not elsewhere classified; M54.16 Radiculopathy, lumbar region; G89.4 Chronic pain syndrome
CPT/HCPCS: 27096; J2795; J3301; Q9967

== ENCOUNTER 2023-09-30 08:34 | Outpatient (AMB) | payer MEDICARE, SELFPAY ==
[2023-09-30 08:41] VITALS: BP 108/62; PULSE 92; RESP 16; O2SAT 97; BMI 32.4
--- NOTE | 2023-09-30 08:41 | MHC.OFFVIS ---
Vital Signs 09/30/23 08:41 09/30/23 08:42 Height 5 ft 3 in 5 ft 3 in Weight 183 lb 183 lb BMI 32.4 32.4 BP 108/62 110/74 Blood Pressure Location Lt brachial Lt brachial Position Sitting Sitting Respiration 16 16 Pulse 92 83 Pulse Source Pulse Oximeter Pulse Oximeter Pulse Oximetry (%) 97 96 Oxygen Delivery Method Room Air Room Air Comment pre-op post-op Intake Visit Reasons: bilateral therapeutic SIJ injection Allergies gabapentin Allergy (Intermediate, Verified 09/30/23 08:42) Rash aripiprazole [From Abilify] Adverse Reaction (Intermediate, Verified 09/30/23 08:42) Agitated bupropion [From Wellbutrin SR] Adverse Reaction (Intermediate, Verified 09/30/23 08:42) Agitated PFSH Medical History Spinal cord stimulator dysfunction Fatty liver Failed back syndrome Sleep apnea 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 Generalized anxiety disorder Depression, major, severe recurrence Controlled diabetes mellitus type II without complication Hypertension Surgical History Hx of spinal surgery H/O colonoscopy History of surgery S/P placement of nerve stimulator Social History Are you a primary care director rn to a significant other at home: No Do you presently have visiting nurse or other home services: No Alcohol intake: current Alcohol intake frequency: 3 or more drinks per day Alcohol type: beer Patient Tobacco Use Status: Former Tobacco user Tobacco use type: Cigarette Years Smoked: 2.5 Physical Exam Vital Signs: Last Vital Signs Pulse 83 09/30/23 08:42 Resp 16 09/30/23 08:42 BP 110/74 09/30/23 08:42 Pulse Ox 96 09/30/23 08:42 Oxygen Delivery Method Room Air 09/30/23 08:42 BMI result Body Mass Index 32.4 Assessment & Plan Assessment & Plan (1) Venous insufficiency of both lower extremities: Code(s): I87.2 - Venous insufficiency (chronic) (peripheral) Category: Medical (2) Lumbar spondylosis: Code(s): M47.816 - Spondylosis without myelopathy or radiculopathy, lumbar region Category: Medical (3) Lumbar degenerative disc disease: Code(s): M51.36 - Other intervertebral disc degeneration, lumbar region Category: Medical (4) Failed back syndrome: Code(s): M96.1 - Postlaminectomy syndrome, not elsewhere classified Category: Medical (5) Bilateral lumbar radiculopathy: Code(s): M54.16 - Radiculopathy, lumbar region Category: Medical (6) Sacroiliac joint pain: Code(s): M53.3 - Sacrococcygeal disorders, not elsewhere classified Category: Medical Plan: Bilateral therapeutic sacroiliac joint injection Informed consent was explained thoroughly to the patient. All questions about benefits and risks for the procedure were answered. Patient came to the operating room and was positioned prone on the operating table with the pillow under the pelvis. Time out was performed delineating name and of the patient, allergies and the nature of the procedure. The lower back and buttocks of the patient were prepped with ChloraPrep prepped and draped with sterile utility towels. C-arm was brought over the operating field and sq picture of patient's pelvis was demonstrated on the screen. For the right joint tilting C-arm contralateral to the site of the joint the most posterior portion of the joints was superimposed with anterior silhouette of the joint. Skin was injected in the projection of the joint slightly medial to the location of the joint with 25 gauge 1/2 inch needle using local lidocaine 2% .After that 22 gauge 3 and 1/2 inch needle was driven to the right joint in tunnel vision fashion. When needle entered the joint capsule injection of the contrast was performed demonstrating intra-articular and minimally periarticular spread of the contrast. After that 4 cc. of ropivacaine 0.5% mixed with Kenalog 20 mg was injected into the joint. After that attention was concentrated on the left joint where the procedure was performed in mirroring fashion. Upon completion of the injections the needle was removed Sterile dressing was applied. Upon completion of the injection patient was taken outside of the operating room to the recovery room where recovered uneventfully. (7) Chronic pain syndrome: Code(s): G89.4 - Chronic pain syndrome Category: Medical Plan Patient is status post diagnostic bilateral SIJ injections with good relief and improvement in his mobility, funcitoning and sleep. We will proceed with Bilateral Therapeutic SIJ injection with local and fluoroscopy. Also reviewed neuromodulation with PNS or RFA procedures as back up options. Expectations, risks and benefits were reviewed. Patient is aware he will be contacted to schedule this procedure. Patient also reports chronic leg pain at night while sleeping or prolonged sitting. Most recent Lumbar CT scan showed multilevel degenerative spondyloarthropathy of the lumbar spine without high-grade spinal canal stenosis. Mild neural foraminal narrowing at multiple levels and diffuse sclerosis of the S1 vertebra. We will obtain bilateral US venous duplex to rule out vascular pathology. All questions were answered and the patient is in agreement of plan. Follow-up after injections and sooner as needed. Orders: Orders FL guidance in treatment room Today M53.3 - Sacrococcygeal disorders, not elsewhere classified Coding Level of Care Code Procedure Only Diagnoses Venous insufficiency of both lower extremities I87.2 Lumbar spondylosis M47.816 Lumbar degenerative disc disease M51.36 Failed back syndrome M96.1 Bilateral lumbar radiculopathy M54.16 Sacroiliac joint pain M53.3 Chronic pain syndrome G89.4
[2023-09-30 08:42] VITALS: BP 110/74; PULSE 83; RESP 16; O2SAT 96; BMI 32.4
== END 2023-09-30 09:14 | disposition home or self-care (01) ==
LOC: HO.PMCPRC 08:34
PROVIDERS: PCP Family Medicine; Visit Provider Anesthesiology
DX: I87.2 Venous insufficiency (chronic) (peripheral) (principal); M47.816 Spondylosis without myelopathy or radiculopathy, lumbar region; M51.36 Other intervertebral disc degeneration, lumbar region; M96.1 Postlaminectomy syndrome, not elsewhere classified; M54.16 Radiculopathy, lumbar region; M53.3 Sacrococcygeal disorders, not elsewhere classified; G89.4 Chronic pain syndrome
CPT/HCPCS: 27096

== ENCOUNTER 2023-10-28 09:03 | Outpatient (AMB) | payer MEDICARE, SELFPAY ==
--- NOTE | 2023-10-28 09:10 | A.OFFVIS_ITS ---
Vital Signs 3 10/28/23 09:11 Height 5 ft 3 in Weight 184 lb 6 oz BMI 32.7 BP 156/89 H Blood Pressure Location Rt brachial Position Sitting Pulse 99 Pulse Source Pulse Oximeter Pulse Oximetry (%) 100 Oxygen Delivery Method Room Air Intake Visit Reasons: bilateral SIJ Intake Note: Pain today 12/15 Medical Sales Required: No Accompanied by: Self / Same As Patient Allergies gabapentin Allergy (Intermediate, Verified 10/28/23 09:11) Rash aripiprazole [From Abilify] Adverse Reaction (Intermediate, Verified 10/28/23 09:11) Agitated bupropion [From Wellbutrin SR] Adverse Reaction (Intermediate, Verified 10/28/23 09:11) Agitated HPI Comments Details: Patient presents today to assess response to Bilateral Therapeutic SIJ injections on 09/30/[address] Goldberg. Patient reports no significant pain in his lower back since procedure but continues to reports lateral hip pain, worse on the left which affects his sleep. He reports regular walking up to 5-6 miles without significant discomfort. He continues to experience chronic leg pain with sleeping and sitting. Denies any recent cough, cold, infection, fever, any significant changes in her medical history, medications or recent hospitalizations. Past Procedures: 09/30/23: Bilateral Therapeutic SIJ injections-50% pain relief in lower back 08/19/23: Bilateral Diagnostic SIJ injections-80% pain relief for 8 hours, ongoing pain relief in lower back and sacral areas. PRIOR: Patient presents today for follow up to review recent lumbar spine CT scan results. Reports bilateral buttocks and posterior and lateral leg pain with sitting and sleeping. Denies any significant pain with walking or standings. He walks 4-4.5 miles daily and also exercises at home. Denies any fever, abdominal or groin pain, weakness, bladder or bowel dysfunction or saddle anesthesia. Patient reports increase low back pain extending to his sacral areas and into his legs after recent trip to [place] and prolonged sitting on the plane. PRIOR: Patient presents today to discuss interventional treatments for his chronic low back pain. He is one week s/p SCS implant removal on 05/29/[address] Barclay. His two back incisions are open to air with intact Steri Strips. Incision sites look clean, dry, intact, no redness, no swelling, no pathological discharge. Per [facility] discharge note summary: We were unable to retrieve all the components of the spinal cord stimulator that were deeper in near the spinal cord. You will need to find out if your device was/is MRI compatible before undergoing an MRI. You should make any future arrangements of MRI imaging aware you still have the residual pieces of stimulator still in your spine. Patient reports he reached out to SCS device [employer] representative and was told that previous SCS implant was MRI compatible. We will proceed with lumbar spine MRI to assess for neural integrity and compression and follow up on previous MRI findings. Patient continues to endorse lower back pain and exacerbation with lumbar flexion indicating a discogenic source. We previously discussed BVN ablation/Intracept procedure and reviewed this again today. His previous lumbar spine MRI showed degenerative disc height loss with associated degenerative discogenic endplate changes. Denies any recent cough, cold, infection, fever or other significant changes in medical history since last office visit. Past Procedures: 05/29/23: SCS implant removal by Dr. Barclay, [facility] 03/14/23: Caudal JOSE LUIS with [id number]% ongoing pain relief PRIOR: Patient is a pleasant 67 years old male with history of previous synovial cyst resection, laminectomy and [facility] SCS implant in 03/2022 presents today for evaluation of low back pain that radiates to his legs laterally. Patient reports his SCS device was reprogrammed 15 times last month without any improvement in his symptoms. It was surgically implanted by Dr. Barclay and patient is considering to remove it as it is active but not providing him any pain relief. His pain is worse at night while sleeping with laying down and with prolonged sitting or standing during the day. Patient rates his pain >8/10. Pain negatively affects his daily activities, functioning, sleep, social activities, mood and quality of life. He ambulates without any limitations and at times wakes in the middle of the night to walk to alleviate his leg symptoms. Lumbar spine MRI is noted below, patient reports he was deemed non surgical for any additional surgery at this time. Denies any fever, abdominal or groin pain, weight loss, weakness, bladder or bowel dysfunction or saddle anesthesia. 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 Generalized anxiety disorder Depression, major, severe recurrence Controlled diabetes mellitus type II without complication Hypertension Surgical History Hx of spinal surgery H/O colonoscopy History of surgery S/P placement of nerve stimulator Social History Are you a primary direct care specialist to a significant other at home: No Do you presently have visiting nurse or other home services: No Alcohol intake: current Alcohol intake frequency: 3 or more drinks per day Alcohol type: beer Patient Tobacco Use Status: Former Tobacco user Tobacco use type: Cigarette Years Smoked: 2.5 Review of Systems Const All systems reviewed & are unremarkable except as noted in HPI and below Physical Exam Vital Signs: Last Vital Signs Pulse 99 10/28/23 09:11 BP 156/89 H 10/28/23 09:11 Pulse Ox 100 10/28/23 09:11 Oxygen Delivery Method Room Air 10/28/23 09:11 BMI result Body Mass Index 32.7 General: Appears afebrile. Alert and oriented. Mood and affect appropriate. Follows and participates in conversation appropriately. Respiratory effort is unlabored. No cough. Able to transition from sit to stand unassisted. Ambulates with bilaterally normal heel strike and toe off. General: Yes no CVA tenderness Back/Spine/Pelvis Other: Lumbar ROM limited due to pain. No midline tenderness to palpation in the thoracic or lumbar spine. Lumbar extension and flexion reproduces mild to moderate symptoms. Facet loading test positive bilaterally. Demonstrates 5/5 strength of quadriceps bilaterally as well as flexion/dorsiflexion of bilateral feet against resistance. 2+ pedal pulses bilaterally. SLR test is negative bilaterally. +1 patellar and diminished achilles reflexes bilaterally. No groin pain with I/E hip rotations. Moderate TTP to bilateral GTB, left>right. Valsalva maneuver negative. Back: no CVA tenderness Cervical Spine: cervical muscular tenderness and No Cervical spine tenderness Thoracic/Lumbar Spine: thoracic and lumbar spine normal to inspection, Thoracic/lumbar spine scar(s) (x2, well healed), Lasegue's sign negative, straight leg raise negative bilaterally, No thoracic spinal tenderness and lumbar spinal tenderness (L5-S1) Pelvis: no buttock tenderness and no sciatic notch tenderness Sacroiliac joints: bilaterally tender to palpation (mild) Neuro General: moves all extremities and Normal light touch and pain sensation Extrem General: Yes capillary refill normal, Yes no clubbing, cyanosis or edema and Yes no calf tenderness Results Reviewed Results Reviewed: XR LUMBOSACRAL SPINE WITH OBLIQUES 02/05/23 CLINICAL INFORMATION: Low back pain. FINDINGS: Electrical stimulator pack overlying the right lower quadrant with leads projecting cephalad overlying the lower thoracic spine, with tips incompletely imaged. Facet arthritis at the [id number] lumbar spine. The bones are diffusely demineralized. Atherosclerotic aortic calcifications. Advanced degenerative changes in the imaged lower thoracic. Moderate multilevel lumbar spondylosis with multilevel loss of disc space height. Minimal grade 1 retrolisthesis of L2 on L3, L3 on L4, and L4 on L5. IMPRESSION: Multilevel degenerative changes in the lumbar spine. CT LUMBAR SPINE WITHOUT CONTRAST 07/17/23 CLINICAL INFORMATION: Vertebrogenic low back pain FINDINGS: Trace retrolisthesis at L2-L3. Diffuse sclerosis of the S1 vertebra, likely degenerative. No acute compression fracture. The vertebral body heights are preserved. Mild disc height loss at L2-L3. Multilevel endplate osteophytosis. Please note that evaluation is limited in the absence of intrathecal contrast material. T12-L1: No significant spinal canal or neural foraminal narrowing. L1-L2: Diffuse disc bulge. No significant spinal canal or neural foraminal narrowing. L2-L3: Diffuse disc bulge. Mild left neural foraminal narrowing. No significant spinal canal stenosis. L3-L4: Diffuse disc bulge and bilateral facet arthrosis. No significant spinal canal stenosis. Mild bilateral neural foraminal narrowing. L4-L5: Diffuse disc bulge and bilateral facet arthrosis. No significant spinal canal stenosis. Mild bilateral neural foraminal narrowing. L5-S1: No significant spinal canal or neural foraminal narrowing. The paravertebral soft tissues are unremarkable. Atherosclerotic ossifications of the abdominal aorta and its branches. 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 No high-grade spinal canal stenosis. Mild neural foraminal narrowing at multiple levels. Assessment & Plan Assessment & Plan (1) Sacroiliac joint pain: Code(s): M53.3 - Sacrococcygeal disorders, not elsewhere classified Category: Medical (2) Greater trochanteric bursitis of both hips: Code(s): M70.61 - Trochanteric bursitis, right hip; M70.62 - Trochanteric bursitis, left hip Category: Medical (3) Bilateral hip pain: Code(s): M25.551 - Pain in right hip; M25.552 - Pain in left hip Category: Medical (4) Lumbar spondylosis: Code(s): M47.816 - Spondylosis without myelopathy or radiculopathy, lumbar region Category: Medical (5) Lumbar degenerative disc disease: Code(s): M51.36 - Other intervertebral disc degeneration, lumbar region Category: Medical (6) Failed back syndrome: Code(s): M96.1 - Postlaminectomy syndrome, not elsewhere classified Category: Medical Plan Patient is status post therapeutic bilateral SIJ injections with good relief and improvement in his mobility and functioning. Provocative SIJ testing does not reproduce his SIJ pain today. Today his pain is consistent with bilateral trochanteric bursitis. We will obtain hip xray with pelvic images to asses degree of degenerative changes as next steps. Provided for diclofenac topical gel today. Administration of medication and precautions were discussed with patient. All questions were answered and the patient is in agreement of plan. Follow-up x-ray results and sooner as needed. Orders: Orders 2 XR hip BI w PEL1V Today M25.551 - Pain in right hip, M25.552 - Pain in left hip, M53.3 - Sacrococcygeal disorders, not elsewhere classified, M70.61 - Trochanteric bursitis, right hip, M70.62 - Trochanteric bursitis, left hip Medications: New 2 diclofenac sodium 1% (Arthritis Pain (diclofenac)) 4 grams topical QID 100 grams 3RF pain M25.551 - Pain in right hip, M25.552 - Pain in left hip, M70.61 - Trochanteric bursitis, right hip, M70.62 - Trochanteric bursitis, left hip Coding Level of Care Code Est Pt Level 4 (51092) Diagnoses Sacroiliac joint pain M53.3 Greater trochanteric bursitis of both hips M70.61; M70.62 Bilateral hip pain M25.551; M25.552 Lumbar spondylosis M47.816 Lumbar degenerative disc disease M51.36 Failed back syndrome M96.1
[2023-10-28 09:11] VITALS: BP 156/89; PULSE 99; O2SAT 100; BMI 32.7
== END 2023-10-28 09:36 | disposition home or self-care (01) ==
PROVIDERS: PCP Family Medicine; Visit Provider Nurse Practitioner Family
DX: M53.3 Sacrococcygeal disorders, not elsewhere classified (principal); M70.61 Trochanteric bursitis, right hip; M70.62 Trochanteric bursitis, left hip; M25.551 Pain in right hip; M25.552 Pain in left hip; M47.816 Spondylosis without myelopathy or radiculopathy, lumbar region; M51.36 Other intervertebral disc degeneration, lumbar region; M96.1 Postlaminectomy syndrome, not elsewhere classified
CPT/HCPCS: 99214

== ENCOUNTER 2023-10-28 09:03 | Outpatient (REF) | payer MEDICARE, SELFPAY ==
--- NOTE | ~2023-10-28 | XR_ITS ---
EXAMINATION: XR BILATERAL HIPS WITH AP PELVIS CLINICAL INFORMATION: Sacrococcygeal disorder COMPARISON: None available. TECHNIQUE: Single view the pelvis 2 views of each hip FINDINGS: No acute visible fracture dislocation. Mild degenerative arthropathy of the bilateral femoral acetabular joints. Degenerative changes of the lower lumbar and lumbosacral spine. Joint space alignment otherwise maintained. Soft tissues are unremarkable. Bowel gas is unremarkable. Pelvic limits are noted. XR/XR hip BI w PEL1V IMPRESSION: 1. No acute visible fracture dislocation. 2. Mild degenerative arthropathy of the bilateral femoral acetabular joints.
== END 2023-10-28 09:04 | disposition home or self-care (01) ==
LOC: HO.XRAY 09:03
PROVIDERS: PCP Family Medicine; Visit Provider Nurse Practitioner Family
DX: M53.3 Sacrococcygeal disorders, not elsewhere classified (principal); M70.61 Trochanteric bursitis, right hip; M70.62 Trochanteric bursitis, left hip; M25.551 Pain in right hip; M25.552 Pain in left hip
CPT/HCPCS: 73521; 99212

== ENCOUNTER 2024-01-07 10:27 | Outpatient (AMB) | payer MEDICARE, SELFPAY ==
--- NOTE | 2024-01-07 10:37 | MHC.OFFVISPS ---
Intake Intake Visit Reasons: Depression Allergies gabapentin Allergy (Intermediate, Verified 10/28/23 09:11) Rash aripiprazole [From Abilify] Adverse Reaction (Intermediate, Verified 10/28/23 09:11) Agitated bupropion [From Wellbutrin SR] Adverse Reaction (Intermediate, Verified 10/28/23 09:11) Agitated HPI- Psychiatric Chief Complaint: Depression HPI Narrative: Pt seen in f/u still cramping of muscles when sitting sees dr rodriguez pain management in [place] spinal stimulator has not been particularly effective. He did try pain management here which was not helpful at [facility]. Patient at times feels somewhat lost not sure of what he should to how he should spend this time. There major issues dealing with the potential moving selling his ex partner's house. Has not been using narcotics PHQ-9 unremarkable PARVEZ unremarkable has not been able to take modafinil some problems getting motivated Past Psychiatric History: THE PATIENT HAS A LONG HISTORY OF TREATMENT RESISTANT DEPRESSION HISTORY OF ADD CHRONIC DIFFICULTY TAKING CARE OF HIS OWN NEEDS HISTORY OF ALCOHOL ABUSE STRESSED TAKING CARE OF HIS LONG-TERM PARTNER Mental Status Exam Mental Status Exam Patient Appearance: Well Grooomed and Appropriate Patient Orientation: Person, Place, Time and Situation Level of Consciousness: Awake and Appropriate Patient Behavior: Appropriate Mood Description: Constricted and Anxious Affect Description: Appropriate and Constricted Patient Cognition Impaired: No Ability to Follow Directions: Good Speech Pattern: Clear Memory Description: Intact Hallucinations: None Delusions: Not Present Thought Process: Intact and Goal Oriented Thought Content: positive for Goal Oriented, positive for Preoccupation, negative for Suicidal Ideation or negative for Homicidal Ideation Depressive Symptoms: Increased Anxiety, Increased Irritability, Low Self Esteem and Difficulty Concentrating Judgement: Good Judgement and Insight: Patient was open to the use of Suboxone in transition from using Dilaudid denies SI ongoing does complain of significant anxiety is open to the possibility of S ketamine Assessment and Plan Assessment & Plan (1) Major depressive disorder in partial remission: Status: Acute Code(s): F32.4 - Major depressive disorder, single episode, in partial remission (2) Generalized anxiety disorder: Status: Acute Code(s): F41.1 - Generalized anxiety disorder (3) ADD (attention deficit disorder) without hyperactivity: Status: Acute Code(s): F98.8 - Other specified behavioral and emotional disorders with onset usually occurring in childhood and adolescence Plan Patient wishing to taper down Lamictal monitor for adverse effects worsening mood did not tolerate BuSpar has been seeing dr rzea [place] encourage change to focus on life cycle changes in relation to of his partner Medications: Changed From lamotrigine 200 mg PO QAM 30 tabs 3RF To lamotrigine 25 mg PO BID 60 tabs 2RF 30 days From trazodone 100 - 200 mg (1 - 2 x 100 mg) PO BEDTIME 60 tabs 2RF To trazodone 100 mg PO BEDTIME 90 tabs 1RF 90 days Discontinued buspirone Discontinued Reason: Doctor's Order 15 mg PO BID 60 tabs 2RF Counseling and coordination of Care Pt. Self Management counseling: Breathing, Exercise, Behavior activation and Cognitive restructuring Medication management counseling: Effectiveness and Side effects Diagnosis and Prognosis Counseling: Adequacy of current interventions Details: I spent [34] minutes reviewing the record, seeing the patient and documenting in the medical record. Counseling provided to the patient/caregiver as outlined below. Addressed patient/caregiver concerns regarding current medication regime including effective adherence. Addressed patient/caregiver concerns regarding diagnosis and prognosis including accuracy of diagnosis, prognosis over time, impact of diagnosis. Addressed patient/caregiver concerns regarding impact of recent stressors. 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 Generalized anxiety disorder Depression, major, severe recurrence Controlled diabetes mellitus type II without complication Hypertension Surgical History Hx of spinal surgery H/O colonoscopy History of surgery S/P placement of nerve stimulator Social History Are you a primary health care / medical job titles to a significant other at home: No Do you presently have visiting nurse or other home services: No Alcohol intake: current Alcohol intake frequency: 3 or more drinks per day Alcohol type: beer Patient Tobacco Use Status: Former Tobacco user Tobacco use type: Cigarette Years Smoked: 2.5 Social History: Pts parents are used work at [employer] identifies as dye no children 1 brother in [place] Substance History: History of alcoholism denies on I'History of alcoholism denies ongoing drinking Coding Level of Care Code Est Pt Level 3 (71580) Therapy 30m w/E&M (48887) Diagnoses Major depressive disorder in partial remission F32.4 Generalized anxiety disorder F41.1 ADD (attention deficit disorder) without hyperactivity F98.8
== END 2024-01-07 11:13 | disposition home or self-care (01) ==
LOC: HO.HOP 10:27
PROVIDERS: PCP Family Medicine; Visit Provider Psychiatry & Neurology Psychiatry
DX: F32.4 Major depressive disorder, single episode, in partial remission (principal); F41.1 Generalized anxiety disorder; F98.8 Other specified behavioral and emotional disorders with onset usually occurring in childhood and adolescence
CPT/HCPCS: 90833; 99213

== ENCOUNTER → 2024-01-07 10:27 | Outpatient (BNVA) | payer MEDICARE, SELFPAY | PROVIDERS: PCP Family Medicine; Visit Provider Psychiatry & Neurology Psychiatry | DX: F32.4 Major depressive disorder, single episode, in partial remission (principal); F41.1 Generalized anxiety disorder; F98.8 Other specified behavioral and emotional disorders with onset usually occurring in childhood and adolescence; Z71.89 Other specified counseling | CPT/HCPCS: 99212 ==

== ENCOUNTER 2024-03-22 10:18 | Outpatient (AMB) | payer MEDICARE, SELFPAY ==
--- OUTSIDE RECORDS SUMMARY | 2024-03-22 10:20 | XMS_ITS ---
Author Name [facility] Organization Unknown History of Medication Use Medication Directions Dispensed Refills Start Date End Date Stat meloxicam 7.5 mg tablet 06/27/2023 active Kenalog 40 mg/mL suspension for injection Take 1 mL by injection route. 06/27/2023 completed meloxicam 7.5 mg tablet Take 1 tablet every day by oral route. 06/27/2023 active lurasidone 20 mg tablet TAKE 1 TABLET BY MOUTH DAILY 06/27/2023 active lidocaine (PF) 10 mg/mL (1 %) injection solution Take 1 mL by injection route. 06/27/2023 completed lamotrigine 200 mg tablet TAKE 1 TABLET BY MOUTH DAILY 03/28/2023 active glipizide 5 mg tablet 1 tablet every day by oral route. 03/28/2023 active modafinil 100 mg tablet TAKE ONE-HALF TO ONE TABLET BY MOUTH DAILY 03/28/2023 completed Multi Vitamin 03/28/2023 active lisinopril 40 mg tablet TAKE 1 TABLET BY MOUTH DAILY 03/28/2023 active lidocaine (PF) 100 mg/5 mL (2 %) injection syringe 03/28/2023 active trazodone 100 mg tablet TAKE 1-2 TABLETS BY MOUTH EVERY NIGHT AT BEDTIME 03/28/2023 active lidocaine (PF) 100 mg/5 mL (2 %) injection syringe Take 1 mL by injection route. 05/09/2023 completed atorvastatin 40 mg tablet TAKE 1 TABLET BY MOUTH DAILY 03/28/2023 active pioglitazone 15 mg tablet TAKE 1 TABLET BY MOUTH DAILY WITH DINNER 03/28/2023 completed lorazepam 1 mg tablet TAKE 1 TABLET BY MOUTH AT BEDTIME NEEDED FOR ANXIETY 03/28/2023 active lidocaine (PF) 10 mg/mL (1 %) injection solution 06/06/2023 active atorvastatin 20 mg tablet Take 20 mg every day by oral route. 03/28/2023 completed vilazodone 20 mg tablet TAKE ONE-HALF TO ONE TABLET BY MOUTH ONCE DAILY WITH A MEAL OR FOOD 03/28/2023 completed atorvastatin 40 mg tablet TAKE 1 TABLET BY MOUTH DAILY 03/28/2023 active pioglitazone 15 mg tablet TAKE 1 TABLET BY MOUTH DAILY WITH DINNER 03/28/2023 completed naloxone 4 mg/actuation nasal spray 03/28/2023 completed Kenalog 40 mg/mL suspension for injection 06/06/2023 active celecoxib 50 mg capsule TAKE 1 CAPSULE BY MOUTH TWICE DAILY 03/28/2023 completed lisinopril 20 mg tablet TAKE 1 TABLET BY MOUTH DAILY 03/28/2023 completed Kenalog 10 mg/mL suspension for injection 03/28/2023 active amitriptyline 10 mg tablet TAKE 1-2 TABLETS BY MOUTH EVERY NIGHT AT BEDTIME 03/28/2023 completed oxycodone 5 mg tablet TAKE 1 TABLET BY MOUTH EVERY 12 HOURS FOR 15 DAYS NEEDED FOR PAIN 03/28/2023 active sildenafil 100 mg tablet TAKE 1/2 TABLET BY MOUTH 30 TO 45 MINUTES BEFORE SEXUAL ACTIVITY DIRECTED 03/28/2023 active glipizide ER 10 mg tablet, extended release 24 hr TAKE 1 TABLET BY MOUTH DAILY 03/28/2023 completed Kenalog 10 mg/mL suspension for injection Take 1 mL by injection route. 05/09/2023 completed docusate sodium 100 mg capsule TAKE ONE CAPSULE BY MOUTH TWICE A DAY 03/28/2023 active meloxicam 15 mg tablet TAKE 1 TABLET BY MOUTH DAILY 03/28/2023 active Problems Problem Status Onset Date Problem Type Date of Resoluti on Source Medial epicondylitis of right humerus active 2023-06-25 ProblemAct ENS_AONECT Osteoarthrosis of the carpometacarpal joint of the thumb active 2023-03-26 ProblemAct ENS_AONECT Tenosynovitis of right radial styloid active 2023-03-26 ProblemAct ENS_AONECT
--- NOTE | 2024-03-22 11:21 | MHC.OFFVISPS ---
Intake Intake Visit Reasons: depression Allergies gabapentin Allergy (Intermediate, Verified 10/28/23 09:11) Rash aripiprazole [From Abilify] Adverse Reaction (Intermediate, Verified 10/28/23 09:11) Agitated bupropion [From Wellbutrin SR] Adverse Reaction (Intermediate, Verified 10/28/23 09:11) Agitated Medication List - Last Reconciled 03/22/24 by Giuseppe Gallegos MD atorvastatin 40 mg PO QAM buspirone 5 mg PO BID diclofenac sodium 1% (Arthritis Pain (diclofenac)) 4 grams topical QID glipizide ER 10 mg PO QAM lamotrigine 50 mg (1/2 x 100 mg) PO BID lisinopril 40 mg PO QAM lorazepam 1 mg PO BEDTIME PRN naloxone 4 mg/actuation (Narcan) 1 spray intranasal Q2M sildenafil 50 mg PO DIRECTED trazodone 100 mg PO BEDTIME 90 days Trintellix (vortioxetine) 5 mg PO DAILY NS HPI- Psychiatric Chief Complaint: depression HPI Narrative: Pt seen in psych f/u has been inc depressed withdrawn since lamictal lowered by pt. Has been dealing with chronic pain isolation periods of helplessness hopelessness no active si thoughts he might be better off at times . Has been thinking how to inc socialization Past Psychiatric History: THE PATIENT HAS A LONG HISTORY OF TREATMENT RESISTANT DEPRESSION HISTORY OF ADD CHRONIC DIFFICULTY TAKING CARE OF HIS OWN NEEDS HISTORY OF ALCOHOL ABUSE STRESSED TAKING CARE OF HIS LONG-TERM PARTNER Mental Status Exam Mental Status Exam Patient Appearance: Well Grooomed and Appropriate Patient Orientation: Person, Place, Time and Situation Level of Consciousness: Awake and Appropriate Patient Behavior: Appropriate Mood Description: Depressed and Anxious Affect Description: Constricted Patient Cognition Impaired: No Ability to Follow Directions: Good Speech Pattern: Clear Memory Description: Intact Hallucinations: None Delusions: Not Present Thought Process: Intact and Goal Oriented Thought Content: positive for Goal Oriented, positive for Preoccupation, negative for Suicidal Ideation or negative for Homicidal Ideation Depressive Symptoms: Increased Anxiety, Increased Irritability, Low Self Esteem and Difficulty Concentrating Judgement: Good Judgement and Insight: Patient was open to the use of Suboxone in transition from using Dilaudid denies SI ongoing does complain of significant anxiety is open to the possibility of S ketamine Assessment and Plan Assessment & Plan (1) Depression, major, severe recurrence: Status: Acute Code(s): F33.2 - Major depressive disorder, recurrent severe without psychotic features (2) Generalized anxiety disorder: Status: Acute Code(s): F41.1 - Generalized anxiety disorder Plan buspar 5 bid start trintellix if not covered escitalopram 5 mg pt has generally not responded to classic antidep tx gets stim with anxiety will try lower doses pt denies active si tms not helpful in the past consider spravato pt given info urged regular visit to [facility] socialization lamictal 50 bid Medications: New Trintellix (vortioxetine) 5 mg PO DAILY 30 tabs 1RF NS escitalopram oxalate 5 mg PO DAILY 30 tabs 1RF Changed From lamotrigine 25 mg PO BID 30 days 60 tabs 2RF To lamotrigine 50 mg (1/2 x 100 mg) PO BID 30 tabs 2RF Refilled lorazepam 1 mg PO BEDTIME PRN 20 tabs 0RF anxiety Counseling and coordination of Care Details-Self Mgmt counseling: strategies to improve depressive sx Medication management counseling: Effectiveness and Side effects Diagnosis and Prognosis Counseling: Adequacy of current interventions Details: I spent [40] minutes reviewing the record, seeing the patient and documenting in the medical record. Counseling provided to the patient/caregiver as outlined below. Addressed patient/caregiver concerns regarding current medication regime including effective adherence. Addressed patient/caregiver concerns regarding diagnosis and prognosis including accuracy of diagnosis, prognosis over time, impact of diagnosis. Addressed patient/caregiver concerns regarding impact of recent stressors. 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 Generalized anxiety disorder Depression, major, severe recurrence Controlled diabetes mellitus type II without complication Hypertension Surgical History Hx of spinal surgery H/O colonoscopy History of surgery S/P placement of nerve stimulator Social History Are you a primary respiratory care faculty to a significant other at home: No Do you presently have visiting nurse or other home services: No Alcohol intake: current Alcohol intake frequency: 3 or more drinks per day Alcohol type: beer Patient Tobacco Use Status: Former Tobacco user Tobacco use type: Cigarette Years Smoked: 2.5 Social History: Pts parents are used work at [employer] nature identifies as dye no children 1 brother in [place] Substance History: History of alcoholism denies on I'History of alcoholism denies ongoing drinking Coding Level of Care Code Est Pt Level 3 (42690) Therapy 30m w/E&M (42755) Diagnoses Depression, major, severe recurrence F33.2 Generalized anxiety disorder F41.1
== END 2024-03-22 11:22 | disposition home or self-care (01) ==
LOC: HO.HOP 10:18
PROVIDERS: PCP Family Medicine; Visit Provider Psychiatry & Neurology Psychiatry
DX: F33.2 Major depressive disorder, recurrent severe without psychotic features (principal); F41.1 Generalized anxiety disorder
CPT/HCPCS: 90833; 99213

== ENCOUNTER → 2024-03-22 10:18 | Outpatient (BNVA) | payer MEDICARE, SELFPAY | PROVIDERS: PCP Family Medicine; Visit Provider Psychiatry & Neurology Psychiatry | DX: F33.2 Major depressive disorder, recurrent severe without psychotic features (principal); F41.1 Generalized anxiety disorder; Z71.89 Other specified counseling | CPT/HCPCS: 99212 ==

== ENCOUNTER 2024-04-09 10:32 | Outpatient (AMB) | payer MEDICARE, SELFPAY ==
--- NOTE | 2024-04-09 11:36 | A.OFFPSYCH_ITS ---
Intake Intake Visit Reasons: depression Allergies gabapentin Allergy (Intermediate, Verified 10/28/23 09:11) Rash aripiprazole [From Abilify] Adverse Reaction (Intermediate, Verified 10/28/23 09:11) Agitated bupropion [From Wellbutrin SR] Adverse Reaction (Intermediate, Verified 10/28/23 09:11) Agitated Medication List - Last Reconciled 04/09/24 by Giuseppe Gallegos MD armodafinil 25 - 50 mg (0.5 - 1 x 50 mg) PO QAM atorvastatin 40 mg PO QAM buspirone 10 mg PO BID desvenlafaxine succinate ER (Pristiq) 25 mg PO DAILY diclofenac sodium 1% (Arthritis Pain (diclofenac)) 4 grams topical QID glipizide ER 10 mg PO QAM lamotrigine 50 mg (1/2 x 100 mg) PO BID lisinopril 40 mg PO QAM lorazepam 1 mg PO BEDTIME PRN naloxone 4 mg/actuation (Narcan) 1 spray intranasal Q2M sildenafil 50 mg PO DIRECTED trazodone 100 mg PO BEDTIME 90 days HPI- Psychiatric Chief Complaint: depression HPI Narrative: Pt seen in psychiatric f/u has been on lexapro 5 mg buspar 5 bid lamictal 50 bid .Pt has been depressed amotivated vague thoughts better off not alive. Pt has hx multiple failed antidep med trials.Drinks he states 2-3 beers nite generally aware not advised . uses trazadone for sleep Past Psychiatric History: THE PATIENT HAS A LONG HISTORY OF TREATMENT RESISTANT DEPRESSION HISTORY OF ADD CHRONIC DIFFICULTY TAKING CARE OF HIS OWN NEEDS HISTORY OF ALCOHOL ABUSE STRESSED TAKING CARE OF HIS LONG-TERM PARTNER Mental Status Exam Mental Status Exam Patient Appearance: Well Grooomed Patient Orientation: Person, Place, Time and Situation Level of Consciousness: Awake and Appropriate Patient Behavior: Cooperative and Fearful Mood Description: Depressed and Apprehensive Affect Description: Constricted Patient Cognition Impaired: No Ability to Follow Directions: Good Speech Pattern: Clear Memory Description: Intact Hallucinations: None Delusions: Not Present Thought Process: Intact and Goal Oriented Thought Content: positive for Goal Oriented, positive for Preoccupation, negative for Suicidal Ideation or negative for Homicidal Ideation Depressive Symptoms: Increased Anxiety, Increased Irritability, Loss of Int. in Activity, Increased Fatigue, Thoughts of /Suicide, Loss of Energy and Difficulty Concentrating Judgement: Good Assessment and Plan Assessment & Plan (1) Depression, major, severe recurrence: Status: Acute Code(s): F33.2 - Major depressive disorder, recurrent severe without psychotic features (2) Generalized anxiety disorder: Status: Acute Code(s): F41.1 - Generalized anxiety disorder Plan reviewed genesight hx decided on desvenlafaxine nl metab in pt if tolerated armodafanil 25 hs pt does have hx sleep apnea monitor resonse side effects reviewed . Inc buspar 10 bid encourage inc activity daily walk Medications: New desvenlafaxine succinate ER (Pristiq) 25 mg PO DAILY 30 tabs 2RF armodafinil 25 - 50 mg (0.5 - 1 x 50 mg) PO QAM 30 tabs 1RF G47.30 - Sleep apnea, unspecified Changed From buspirone 5 mg PO BID To buspirone 10 mg PO BID 60 tabs 2RF Discontinued escitalopram oxalate Discontinued Reason: Doctor's Order 5 mg PO DAILY 30 tabs 1RF Counseling and coordination of Care Pt. Self Management counseling: Breathing and Behavior activation Medication management counseling: Effectiveness, Side effects and Dosing range Diagnosis and Prognosis Counseling: Adequacy of current interventions Details-Diagnosis/Prognosis counseling: pt to hold armodaf if inc anxiety palpitations aware of off label use Details: I spent [] minutes reviewing the record, seeing the patient and documenting in the medical record. Counseling provided to the patient/caregiver as outlined below. Addressed patient/caregiver concerns regarding current medication regime including effective adherence. Addressed patient/caregiver concerns regarding diagnosis and prognosis including accuracy of diagnosis, prognosis over time, impact of diagnosis. Addressed patient/caregiver concerns regarding impact of recent stressors. 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 Generalized anxiety disorder Depression, major, severe recurrence Controlled diabetes mellitus type II without complication Hypertension Surgical History Hx of spinal surgery H/O colonoscopy History of surgery S/P placement of nerve stimulator Social History Are you a primary hospice spiritual care coordinator to a significant other at home: No Do you presently have visiting nurse or other home services: No Alcohol intake: current Alcohol intake frequency: 3 or more drinks per day Alcohol type: beer Patient Tobacco Use Status: Former Tobacco user Tobacco use type: Cigarette Years Smoked: 2.5 Social History: Pts parents are used work at [employer] nature identifies as dye no children 1 brother in [place] Substance History: History of alcoholism denies on I'History of alcoholism denies ongoing drinking Coding Level of Care Code Est Pt Level 3 (69062) Therapy 30m w/E&M (19773) Diagnoses Depression, major, severe recurrence F33.2 Generalized anxiety disorder F41.1
== END 2024-04-09 11:23 | disposition home or self-care (01) ==
LOC: HO.HOP 10:32
PROVIDERS: PCP Family Medicine; Visit Provider Psychiatry & Neurology Psychiatry
DX: F33.2 Major depressive disorder, recurrent severe without psychotic features (principal); F41.1 Generalized anxiety disorder
CPT/HCPCS: 90833; 99213

== ENCOUNTER → 2024-04-09 10:32 | Outpatient (BNVA) | payer MEDICARE, SELFPAY | PROVIDERS: PCP Family Medicine; Visit Provider Psychiatry & Neurology Psychiatry | DX: F33.2 Major depressive disorder, recurrent severe without psychotic features (principal); F41.1 Generalized anxiety disorder | CPT/HCPCS: 99212 ==

== ENCOUNTER 2024-05-20 10:20 | Outpatient (AMB) | payer MEDICARE, SELFPAY ==
--- NOTE | 2024-05-20 10:47 | A.OFFPSYCH_ITS ---
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 cannot take gabapenin or lyrica l Past Psychiatric History: THE PATIENT HAS A LONG HISTORY OF TREATMENT RESISTANT DEPRESSION HISTORY OF ADD CHRONIC DIFFICULTY TAKING CARE OF HIS OWN NEEDS HISTORY OF ALCOHOL ABUSE STRESSED TAKING CARE OF HIS LONG-TERM PARTNER Assessment and Plan Assessment & Plan (1) Generalized anxiety disorder: Status: Acute Code(s): F41.1 - Generalized anxiety disorder (2) ADD (attention deficit disorder) without hyperactivity: Status: Acute Code(s): F98.8 - Other specified behavioral and emotional disorders with onset usually occurring in childhood and adolescence (3) Major depressive disorder in partial remission: Status: Acute Code(s): F32.4 - Major depressive disorder, single episode, in partial remission Plan Patient seen in psychiatric follow-up. Patient is somewhat frustrated regarding pain management he is seeing someone in [place]. Periodic dysphoria generally using trazodone 200 mg for sleep has been educated regarding m onitoring for increase sedation or grogginess the next morning or day. Lamictal 50 twice a day and low-dose are modafinil for daytime lethargy and hypersomnia in the context of sleep apnea. Monitor for increased anxiety agitation continue BuSpar appears to be helpful PHQ-9 and PARVEZ have improved Did discuss the option of spravato if needed Medications: Changed From trazodone 100 mg PO BEDTIME 90 days 90 tabs 1RF To trazodone 200 mg (2 x 100 mg) PO BEDTIME 180 tabs 1RF 90 days Refilled armodafinil 25 - 50 mg (0.5 - 1 x 50 mg) PO QAM 30 tabs 1RF G47.30 - Sleep apnea, unspecified lamotrigine 50 mg (1/2 x 100 mg) PO BID 90 tabs 1RF buspirone 10 mg PO BID 60 tabs 2RF Counseling and coordination of Care Details-Self Mgmt counseling: Issues related to grief management of chronic depressive symptoms discussed behavioral activation strategies light exposure strategies Diagnosis and Prognosis Counseling: Accuracy of diagnosis, Problematic behaviors secondary to diagnosis and Adequacy of current interventions Details: I spent [38] minutes reviewing the record, seeing the patient and documenting in the medical record. Counseling provided to the patient/caregiver as outlined below. Addressed patient/caregiver concerns regarding current medication regime including effective adherence. Addressed patient/caregiver concerns regarding diagnosis and prognosis including accuracy of diagnosis, prognosis over time, impact of diagnosis. Addressed patient/caregiver concerns regarding impact of recent stressors. [facility] Medical History Spinal cord stimulator dysfunction Fatty liver Failed back syndrome Sleep apnea 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 Generalized anxiety disorder Depression, major, severe recurrence Controlled diabetes mellitus type II without complication Hypertension Surgical History Hx of spinal surgery H/O colonoscopy History of surgery S/P placement of nerve stimulator Social History Are you a primary vehicle care specialist to a significant other at home: No Do you presently have visiting nurse or other home services: No Alcohol intake: current Alcohol intake frequency: 3 or more drinks per day A lcohol type: beer Patient Tobacco Use Status: Former Tobacco user Tobacco use type: Cigarette Years Smoked: 2.5 Social History: Pts parents are used work at [employer] nature identifies as dye no children 1 brother in [place] Substance History: History of alcoholism denies on I'History of alcoholism denies ongoing drinking Coding Level of Care Code Est Pt Level 3 (43507) Therapy 30m w/E&M (74012) Diagnoses Generalized anxiety disorder F41.1 ADD (attention deficit disorder) without hyperactivity F98.8 Major depressive disorder in partial remission F32.4
--- OUTSIDE RECORDS SUMMARY | 2024-05-20 11:06 | XMS_ITS | Encounter Summary ---
Author Organization [facility] Address [address] [place] [address] Care Team Providers Care Heavy Repairer Name Role Phone Caprice Bustos DO Primary Care Provider Reason for Referral * Pain Management (Routine) - Closed Specialty Diagnoses / Procedures Referred By Contac t Referred To Contact Pain Medicine Diagnoses Radiculopathy, lumbar region Procedures Injection epidural lumbar without guidance Parish Chavez MD [address] [place] [address] Phone: tel: fax: Referral ID Status Reason Start Date Expiration Date Visits Re quested Visits Authorized [id number] Closed 04/13/2024 04/13/2025 1 1 Reason for Visit * Pain Management (Routine) - Closed Specialty Diagnoses / Procedures Referred By Contac t Referred To Contact Pain Medicine Diagnoses Radiculopathy, lumbar region Procedures Injection epidural lumbar without guidance Parish Chavez MD [address] [place] [address] Phone: tel: fax: Referral ID Status Reason Start Date Expiration Date Visits Re quested Visits Authorized [id number] Closed 04/13/2024 04/13/2025 1 1 Encounter Details Date Type Department Care Team (Latest Contact Info) Description 04/27/2024 8:10 AM EST - 04/27/2024 11:59 PM EST Hospital Encounter [facility] [address] [place] [address] Parish Chavez MD [address] [place] [id number] Radiculopathy, lumbar region Discharge Disposition: Home or Self Care Social History Tobacco Use Types Packs/Day Years [...] Record ed Within the last 3 months, [place] many times did you visit the emergency [...] care for your loved ones. For example, early childhood special educator or elderly care for an older adult? [...] Safety Answer Date Record ed Physical Abuse 04/27/2024 Verbal Abuse 04/27/2024 Sex and Gender Information Value Date Recorded Sex Assigned at Male 03/30/2024 12:21 PM EST Legal Sex Male 2:15 PM EST Gender Identity Male 03/30/2024 12:21 PM EST Sexual Orientation Lesbian or [place] 03/30/2024 12 :21 PM EST documented as of this encounter Last Filed Vital Signs Vital Sign Reading Time Taken Comments Blood Pressure 126/83 04/27/2024 10:00 AM EST Pulse 90 04/27/2024 10:00 AM EST Temperature 36.7 ??C (98.1 ??F) 04/27/2024 10:[address] Respiratory Rate 14 04/27/2024 10:00 AM EST Oxygen Saturation 97% 04/27/2024 8:28 AM EST Inhaled Oxygen Concentration - - Weight 84.8 kg (187 lb) 04/27/2024 8:35 AM EST Height 162.6 cm (5' 4.02 ) 04/27/2024 8:35 AM ES T Body Mass Index 32.08 04/27/2024 8:35 AM EST documented in this encounter Discharge Instructions * Attachments The following attachments cannot be sent through Care Everywhere. * Lumbar Epidural Steroid: Post-op (Wolof) documented in this encounter Medications at Time of Discharge armodafiniL (NUVIGIL) 50 mg tablet Take 0.5 tablets (25 mg total) by mouth 1 (one) time each day. Max Daily Amount: 25 mg atorvastatin (LIPITOR) 40 mg tablet Take 1 tablet (40 mg total) by mouth 1 (one) time each day. 08/08/2023 busPIRone (BUSPAR) 10 mg tablet Take 1 tablet (10 mg total) by mouth 1 (one) time each day. cholecalciferol (VITAMIN D-3) 25 mcg (1,000 unit) capsule Take 1 capsule (1,000 Units total) by mouth 1 (one) time each day. glipiZIDE (GLUCOTROL XL) 10 mg 24 hr tablet Take 1 tablet (10 mg total) by mouth 1 (one) time each day. 90 tablet 1 04/15/2024 Lactobacillus acidophilus (Probiotic) 10 billion cell capsule lamoTRIgine (LaMICtal) 100 mg tablet Take 1 tablet (100 mg total) by mouth 1 (one) time each day. lisinopril (PRINIVIL,ZESTRIL) 40 mg tablet Take 1 tablet (40 mg total) by mouth 1 (one) time each day. 12/19/2023 multivitamin (MULTIPLE VITAMINS ORAL) Take by mouth. traZODone (DESYREL) 100 mg tablet Take 1 tablet (100 mg total) by mouth at bedtime. blood-glucose meter kit To monitor BS 11/07/2023 glucose blood (OneTouch Ultra Test) test strip TEST BLOOD SUGAR WITH FOUR TIMES DAILY 400 strip 03/30/2024 lancets (OneTouch Delica Plus Lancet) 30 gauge TEST WITH FOUR TIMES DAILY 400 each 03/30/2024 LORazepam (ATIVAN) 1 mg tablet Take 1 tablet (1 mg total) by mouth if needed. 11/25/2019 documented as of this encounter Discharge Disposition Disposition Code Departure Means Destination Home or Self Care documented in this encounter Procedure Notes * Ashley Stallings RN - 04/27/2024 9:00 AM EST Band aid cdi Discharge instructions reviewed with stated understanding * Parish Chavez MD - 04/27/2024 9:00 AM EST INTERLAMINAR EPIDURAL STEROID INJECTION Parish Chavez MD [...] Care Team (Late st Contact Info) Description 06/04/2024 8:30 AM EST [facility] [address] [place] [address] Caprice Bustos DO [address] [place] [address] Pending Results Name Type Priority Associated Diagnoses Date /Time POCT glucose bedside Point of Care Testing Routine 04/27/2024 8:39 AM EST Scheduled Orders Name Type Priority Associated Diagnoses Order Schedule Injection epidural lumbar without guidance Procedures Routine Radiculopathy, lumbar region Once for 1 Occurrences starting 04/27/2024 until 04/27/2024 POCT glucose bedside Point of Care Testing Routine Once for 1 Occurrences starting 04/27/2024 until 04/27/2024 documented as of this encounter Procedures Procedure Name Priority Date/Time Associated Diagnosis Comments POCT GLUCOSE BLOOD Routine 04/27/2024 8: 30 AM EST documented in this encounter Results * (ABNORMAL) POCT Glucose, blood (04/27/2024 8:30 AM EST) Glucose POCT 219(H) 70 - 100 mg/dL 04/27/2024 8:31 AM EST [facility] Blood Capillary blood specimen / Unknown 04/27/2024 8:30 AM EST 04/27/2024 8:32 AM EST us Parish Chavez MD LAB POINT OF CARE TE ST DOCKED DEVICE UNSOLICITED RESULTS Final Result [facility] [address] [place] [address], [place] [phone] documented in this encounter Visit Diagnoses Diagnosis Radiculopathy, lumbar region Thoracic or lumbosacral neuritis or radiculitis, unspecified documented in this encounter Administered Medications Inactive Administered Medications - up to 3 most recent administrations Medication Order MAR Action Action Date Dose Rate Site iopamidoL (ISOVUE-300) 300 mg iodine /mL (61 %) solution As needed, Starting on Fri04/27/24 at 0947, Intraprocedure Given 04/27/2024 9:47 AM EST 1 mL Back lidocaine (XYLOCAINE) 2 % injection As needed, Starting on Fri04/27/24 at 0949, Intraprocedure Given 04/27/2024 9:49 AM EST 5 mL Back methylPREDNISolone acetate (DEPO-Medrol) injection As needed, Starting on Fri04/27/24 at 0948, Intraprocedure Given 04/27/2024 9:48 AM EST 80 mg Back documented in this encounter Historical Medications * This list may reflect changes made after this encounter. armodafiniL (NUVIGIL) 50 mg tablet Take 0.5 tablets (25 mg total) by mouth 1 (one) time each day. Max Daily Amount: 25 mg lamoTRIgine (LaMICtal) 100 mg tablet Take 1 tablet (100 mg total) by mouth 1 (one) time each day. busPIRone (BUSPAR) 10 mg tablet Take 1 tablet (10 mg total) by mouth 1 (one) time each day. added in this encounter Additional Health Concerns Assessment Noted Time PHQ-9 Depression Total Score: 1 02/27/20 24 11:45 AM EST documented as of this encounter Care Teams Heavy Repairer Relationship Specialty Start Date End Date Caprice Bustos DO [address] [place] [address] PCP - General 01/19/24 documented as of this encounter
--- OUTSIDE RECORDS SUMMARY | 2024-05-20 11:06 | XMS_ITS | Clinical Summary ---
Author Organization [facility] Address [address] [place] [address] Care Team Providers Care Director Life Sciences Name Role Phone Davis Campos PA-C Primary Care Provider Allergies Active Allergy Reactions Criticality Noted Date Comments Metformin Low 12/16/2019 GI discomfort Medications Medication Sig Dispensed Refills Start Date End Date Status lisinopril (PRINIVIL,ZESTRIL) tablet 20 mg Take 20 mg by mouth daily. 0 Active atorvastatin (LIPITOR) tablet 20 mg Take 20 mg by mouth daily. 0 Active glipiZIDE (GLUCOTROL) tablet 10 mg Take 10 mg by mouth 2 (two) times a day before breakfast and dinner. 0 Active lamoTRIgine (LaMICtal) 100 MG tablet Take 100 mg by mouth 2 (two) times a day. 0 Active LORazepam (ATIVAN) 1 MG tablet Take 1 mg by mouth every 6 (six) hours as needed. 0 Active vitamin D3 (VITAMIN D3) 10 MCG (400 UNIT) tablet Take 400 Units by mouth daily. 0 Active buPROPion (WELLBUTRIN XL) 150 MG 24 hr tablet 0 05/10/2021 Active lamoTRIgine (LaMICtal) 150 MG tablet Take 150 mg by mouth 2 (two) times a day. 0 06/16/2021 Active traZODone (DESYREL) 100 MG tablet Take 100-200 mg by mouth every night at bedtime. 0 04/10/2021 Active glipiZIDE (GLUCOTROL XL) ER 24 hr tablet 10 mg Take 20 mg by mouth daily. 0 06/18/2021 Active pregabalin (LYRICA) capsule 50 mg Take 1 capsule (50 mg total) by mouth 3 (three) times a day. 90 capsule 0 09/25/2021 Active DULoxetine (CYMBALTA) DR capsule 30 mg Take 1 capsule (30 mg total) by mouth daily. 30 capsule 0 10/04/2021 Active Active Problems Problem Noted Date Diagnosed Date Synovial cyst of lumbar facet joint 03/28/2021 Overview: Last Assessment & Plan: Approx 2.5 weeks s/p L4-5 decompression and resection of synovial cyst. Patient has ongoing lower extremity and groin symptoms but not as bad as in the beginning. Reassured patient, discussed nerve root healing. He agreed to be patient and will f/u with Dr. Barclay in about 4-6 weeks. Immunizations Name Administration Dates Next Due Covid-19 ([employer]) Dilution Required 01/04/2021 Influenza Trivalent (Fluzone High Dose) 0.7 mL (65yrs &>) 12/15/2020,12/07/2019 Shingrix Vaccine (Zoster Recombinant) 06/25/2021 Tdap 06/17/2014 Zostavax (Zoster Live) 01/19/2014,01/10/2009 Social History Tobacco Use Types Packs/Day Years Used Date Smoking Tobacco: Never Smokeless Tobacco: Never Alcohol Use Standard Drinks/Week Comments Yes 20 (1 standard drink = 0.6 oz pu re alcohol) Sex and Gender Information Value Date Recorded Sex Assigned at Not on file Gender Identity Not on file Sexual Orientation Not on file Job Start Date Occupation Industry Not on file Not on file Not on file Last Filed Vital Signs Vital Sign Reading Time Taken Comments Blood Pressure 128/78 12/24/2023 9:00 AM EDT Pulse 85 12/24/2023 9:00 AM EDT Temperature 36.6 ??C (97.8 ??F) 12/24/2023 9:00 AM ED T Respiratory Rate - - Oxygen Saturation 97% 12/24/2023 9:00 AM EDT Inhaled Oxygen Concentration - - Weight 86.2 kg (190 lb) 11/02/2020 8:23 AM EDT Height 162.6 cm (5' 4 ) 11/02/2020 8:23 AM EDT Body Mass Index 32.61 11/02/2020 8:23 AM EDT Plan of Treatment Health Maintenance Due Date Last Done Comments Hepatitis C Screening 1954 Depression Screening 1966 Preventative Health Evaluation 1972 Colon Cancer Screening (Colonoscopy) 1999 Fall Risk Assessment 2019 COVID-19 Vaccine ( season) 2023 12/24/2022, 07/08/2021, 01/04/2021, Additional history exists Influenza Vaccine (#1) 2023 , 12/24/2021, 12/15/2020, Additional history exists DTap / Tdap / Td (2 - Td or Tdap) 06/17/2024 06/17/2014 RSV Adult > 60+ Yrs or (1 - 1-dose 75+ series) 2029 Shingrix-Zoster Vaccine Completed 08/28/2021, 06/25 Pneumococcal Vaccine Completed 09/18/2021, 12/28/2015, 12/28/2015, Additional history exists Hepatitis B Vaccines Aged Out No long er eligible based on patient's age to complete this topic RSV Ped < 20 months Aged Out No longe r eligible based on patient's age to complete this topic Care Teams Director Life Sciences Relationship Specialty Start Date End Date Davis Campos PA-C [address] [place] [address] PCP - General Medical Services 12/06/20
--- OUTSIDE RECORDS SUMMARY | 2024-05-20 11:06 | XMS_ITS | Encounter Summary ---
Author Organization [facility] Address [address] [place] [address] Care Team Providers Care Fryline Attendant Name Role Phone Davis Campos Primary Care Provider [phone] Encounter Details Date Type Department Care Team (Late st Contact Info) Description 01/06/2024 8:21 AM EDT Hospital Encounter TH HISTORIC ENCOUNTERS [facility]AST[facility] CONVERSION ONLY Parish Chavez MD [address] [place] [address] Social History Tobacco Use Types Packs/Day Years [...] care for your loved ones. For example, childrens club attendant or elderly care for an older adult? [...] AM EST Office Visit [facility] [address] [place] [address] Caprice Bustos DO [address] [place] [address] documented as of this encounter Visit Diagnoses Not on filedocumented in this encounter Care Teams Fryline Attendant Relationship Specialty Start Date End Date Davis Campos PA [address] [place] [id number] PCP - General 01/06/24 01/18/24 documented as of this encounter
--- OUTSIDE RECORDS SUMMARY | 2024-05-20 11:06 | XMS_ITS | Clinical Summary ---
Author Organization [facility] [address] [facility] Address [address] [place] [address] Phone Care Team Providers Care Network Engineering Advisor Name Role Phone Caprice Bustos DO Primary Care Provider Allergies Active Allergy Reactions Criticality Noted Date Comments Gabapentin 03/24/2023 Metformin Low 12/16/2019 GI discomfort Medications blood-glucose meter kit To monitor BS 11/07/2023 Active multivitamin (MULTIPLE VITAMINS ORAL) Take by mouth. Active atorvastatin (LIPITOR) 40 mg tablet Take 1 tablet (40 mg total) by mouth 1 (one) time each day. 08/08/2023 Active cholecalciferol (VITAMIN D-3) 25 mcg (1,000 unit) capsule Take 1 capsule (1,000 Units total) by mouth 1 (one) time each day. Active lisinopril (PRINIVIL,ZESTRI L) 40 mg tablet Take 1 tablet (40 mg total) by mouth 1 (one) time each day. 12/19/2023 Active LORazepam (ATIVAN) 1 mg tablet Take 1 tablet (1 mg total) by mouth if needed. 11/25/2019 Active traZODone (DESYREL) 100 mg tablet Take 1 tablet (100 mg total) by mouth at bedtime. Active Lactobacillus acidophilus (Probiotic) 10 billion cell capsule Active lancets (OneTouch Delica Plus Lancet) 30 gauge TEST WITH FOUR TIMES DAILY 400 each 03/30/2024 Active glucose blood (OneTouch Ultra Test) test strip TEST BLOOD SUGAR WITH FOUR TIMES DAILY 400 strip 03/30/2024 Active glipiZIDE (GLUCOTROL XL) 10 mg 24 hr tablet Take 1 tablet (10 mg total) by mouth 1 (one) time each day. 90 tablet 1 04/15/2024 Active busPIRone (BUSPAR) 10 mg tablet Take 1 tablet (10 mg total) by mouth 1 (one) time each day. Active lamoTRIgine (LaMICtal) 100 mg tablet Take 1 tablet (100 mg total) by mouth 1 (one) time each day. Active armodafiniL (NUVIGIL) 50 mg tablet Take 0.5 tablets (25 mg total) by mouth 1 (one) time each day. Max Daily Amount: 25 mg Active Active Problems Problem Noted Date Diagnosed Date Opioid abuse 01/28/2023 Microalbuminuria 03/26/2022 Synovial cyst of lumbar facet joint 03/28/2021 Overview (01/21/2024): Last Assessment & Plan: Approx 2.5 weeks s/p L4-5 decompression and resection of synovial cyst. Patient has ongoing lower extremity and groin symptoms but not as bad as in the beginning. Reassured patient, discussed nerve root healing. He agreed to be patient and will f/u with Dr. Barclay in about 4-6 weeks. 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 Gallegos HTN (hypertension) 07/30/2013 Hyperlipidemia 07/30/2013 Obesity 07/30/2013 AARON (obstructive sleep apnea) 07/30/2013 Overview (01/21/2024): On CPAP Testosterone deficiency 07/30/2013 Encounters Date Type Department Care Team Description 04/27/2024 8:10 AM EST - 04/27/2024 11:59 PM EST Hospital Encounter [facility] [address] [place] [phone] Parish Chavez MD Radiculopathy, lumbar region Discharge Disposition: Home or Self Care 04/27/2024 7:45 AM EST - 04/27/2024 11:59 PM EST Hospital Encounter [facility] X[facility] [address] [place] [phone] Pain Discharge Disposition: Home or Self Care 03/05/2024 9:00 AM EST Clinical Support [facility] [address] [place] [address] Routine general medical examination at a health care facility (Primary Dx); Medicare annual wellness visit, subsequent 03/05/2024 8:30 AM EST Office Visit Internal Medicine - [facility] [address] [place] [address] Caprice Bustos DO Hyperlipidemia, unspecified hyperlipidemia type (Primary Dx); Type 2 diabetes mellitus with other diabetic kidney complication, without long-term current use of insulin ([facility]); Hypertension, unspecified type from Last 3 Months Immunizations Name Administration Dates Next Due Influenza trivalent, 0.5mL ( Fluad) 65yo and older 11/25/2022,12/24/2021,12/15/2020,12/06 Influenza trivalent, 0.5mL, preservative free (Fluarix; FluLaval; Fluzone) ages 6mo and older (Afluria) 3 years and older 02/20/2019,01/02/2015,01/19/2014 Influenza trivalent, with pr eservative (Fluzone; Afluria) 6mo and older 02/02/2018,12/20/2016,11/22/2015 Influenza, Unspecified 01/02/2015,01/19/2014, Pfizer (ages 12 & older) Biv alent, COVID-19 06/27/2023,12/05/2021 Pfizer SARS-CoV-2 COVID-19, mRNA, LNP-S, preservative free 12/24/2022,07/08/2021,01/04/2021,07/03,06/12/2020 Pneumococcal conjugate 13 va lent (Prevnar 13, PCV13) 2mo and older 12/28/2015,06/17/2014,03/24/2014 Pneumococcal polysaccharide 23 valent (Pneumovax 23) 2yo and older 09/18/2021,12/28/2015 RSV, bivalent, protein subun it RSVpreF, 0.5mL, Preservative Free (ABRYSVO) 60yo and older or 32 through 36 wks of 11/25/2022 Tdap Tetanus diptheria acell ular pertussis (Boostrix; Adacel) 7yo and older 06/17/2014 Zoster Live 01/19/2014,01/10/2009 Zoster recombinant (Shingrix ) 19yo and older 08/28/2021,06/25/2021 Surgical History Surgery Date Site/Laterality Comments WISDOM TOOTH EXTRACTION PROCEDURE: HISTORICAL WISDOM TEETH EXTRACTION COLONOSCOPY 08/03/2020 PROCEDURE: HISTORICAL COLONOSCOPY; COMMENT: Diverticulosis, otherwise negative. COLONOSCOPY 2001 PROCEDURE: HISTORICAL COLONOSCOPY; COMMENT: negative. COLONOSCOPY 2008 PROCEDURE: HISTORICAL COLONOSCOPY; COMMENT: Kaushal; negative. BACK SURGERY 03/08/2021 PROCEDURE: HISTORICAL BACK SURGERY; COMMENT: Lumbar decompression by Dr. Barclay SPINE SURGERY LUMBAR SPINE SURGERY spinal stimulator placed and then removed 1 year later Medical History Medical History Date Comments HTN (hypertension) 07/30/2013 DX:HTN (hyper tension) Hyperlipidemia 07/30/2013 DX:Hyperlipidemi a Depression 07/30/2013 DX:Depression Testosterone deficiency 07/30/2013 DX:Testo sterone deficiency AARON (obstructive sleep apnea) 07/30/2013 DX :AARON (obstructive sleep apnea) Family history of colon cancer 08/16/2013 D X:Family history of colon cancer; COMMENT: Brother Hypogonadism male 08/16/2013 DX:Hypogonadis m male Diverticulitis 08/16/2013 DX:Diverticuliti s Iritis, recurrent 04/22/2018 DX:Iritis, rec urrent; COMMENT: HKA- B27 positive DM (diabetes mellitus), type 2 with renal complications (CMS/HCC) 08/03/2013 DX:DM (diabetes mellitus ), type 2 with renal complications (HCC) Microalbuminuria 03/26/2022 DX:Microalbumin uria Family History Medical History Relation Name Comments Colon cancer Brother 1 half brother No Known Problems Father Heart attack Maternal Grandfather Stroke Mother Ulcerative colitis Mother No Known Problems Sister Relation Name Status Comments Brother 1 Half - Nasal po lyps, Colon CA Brother 2 Alive Healthy Father (Age 87) Parkinson' s Maternal Grandfather Maternal Grandmother Mother Healthy Paternal Grandfather Paternal Grandmother Sister Social History Tobacco Use Types Packs/Day Years Used Date Smoking Tobacco: Former Cigarettes Smokeless Tobacco: Never Tobacco Cessation:Counseling Given: Not Answered Alcohol Use Standard Drinks/Week Comments Yes 3 [...] for your loved ones. For example, child development associate teacher or elderly care for an older [...] or [place] 03/30/2024 12 :21 PM EST Obstetrics History Last Filed Vital Signs Vital Sign Reading [...] Mass Index 32.08 04/27/2024 8:35 AM EST Plan of Treatment Upcoming Encounters Date Type Department Care Team (Late st Contact Info) Description 06/04/2024 8:30 AM EST Office Visit [facility] [address] [facility] [place] [phone] Caprice Bustos DO [address] [facility] [place] [address] Health Maintenance Due Date Last Done Comments Diabetes: Annual Retina Eye Exam 1964 Hepatitis A Vaccines (1 of 2 - Risk 2-dose series) 1973 Colorectal Cancer Screening: Colonoscopy 03/15/2022 DTaP,Tdap,and Td Vaccines (2 - Td or Tdap) 06/17/2024 06/17/2014 Diabetes: Blood Sugar Control Test (HGBA1C) 09/07/2024 03/09/2024, 08/06/2023, 08/06/2023 Diabetes: Annual Foot Exam 11/10/2024 11/11/2023 Depression Screening 03/04/2025 03/04/2024, 10/16/19 23 Medicare Annual Wellness Visit 03/05/2025 03/05/2024 Social Influencers of Health Screening 03/05/2025 03/05/2024 Diabetes: Annual Urine Albumin-Creatinine Ratio (uACR) 03/09/2025 03/09/2024, 11/28/2022 Diabetes: Annual GFR (Glomerular Filtration Rate) 03/09/2025 03/09/2024, 08/29/2022 Hypertension/CHF/CAD Annual BMP Blood Test 03/09/2025 03/09/2024, 08/29/2022 Falls Risk Assessment 04/27/2025 04/27/2024, 024 Cholesterol Screening (Lipid Panel) 03/09/2029 03/09/2024, 11/28/2022 Hepatitis C Screening Completed 03/10/2017 Zoster Vaccines Completed 08/28/2021, 06/06, 01/19/2014, Additional history exists Abdominal Aortic Aneurysm (AAA) Screen Completed 10/17/2021 Pneumococcal Vaccine: 50+ Years Completed 11/11/2022, 09/18/2021, 12/28/2015, Additional history exists RSV Immunization Patients 60+ Years Old Completed 11/25/2022 COVID-19 Vaccine Completed 12/19/2023, , 12/24/2022, Additional history exists Influenza Vaccine Completed 12/19/2023, , 12/24/2021, Additional history exists HIB Vaccines Aged Out No longer eligi ble based on patient's age to complete this topic HPV Vaccines Aged Out No longer eligi ble based on patient's age to complete this topic Hepatitis B Vaccines Aged Out No long er eligible based on patient's age to complete this topic IPV Vaccines Aged Out No longer eligi ble based on patient's age to complete this topic MMR Vaccines Aged Out No longer eligi ble based on patient's age to complete this topic Meningococcal ACWY Vaccine Aged Out N o longer eligible based on patient's age to complete this topic Meningococcal B Vacine Aged Out No lo nger eligible based on patient's age to complete this topic RSV Immunization Patients Under 20 months Aged Out No longer eligible based on patient's age to complete this topic Varicella Vaccines Aged Out No longer eligible based on patient's age to complete this topic Procedures Procedure Name Priority Date/Time Associated Diagnosis Comments XR FLUORO UP TO 1 HOUR Routine 04/27/2024 10:17 AM EST Pain POCT GLUCOSE BLOOD Routine 04/27/2024 8: 30 AM EST BASIC METABOLIC PANEL Routine 03/09/2024 8:56 AM EST Hypertension, unspecified type LIPID PANEL WITH REFLEX TO DIRECT LDL Routine 03/09/2024 8:56 AM EST Hyperlipidemia, unspecified hyperlipidemia type HEMOGLOBIN A1C Routine 03/09/2024 8:56 AM EST Type 2 diabetes mellitus with other diabetic kidney complication, without long-term current use of insulin ([facility]) MICROALBUMIN CREATININE URINE RATIO Routine 03/09/2024 8:56 AM EST Type 2 diabetes mellitus with other diabetic kidney complication, without long-term current use of insulin (CMS/HCC) FALLS RISK ASSESSMENT Routine 11/11/2023 DIABETES FOOT EXAM Routine 11/11/2023 DEPRESSION SCREENING Routine 10/15/2022 US ABDOMINAL AORTA REAL TIME SCREEN STUDY AAA Routine 10/17/2021 8:25 AM EDT Encounter for screening for cardiovascular disorders HEPATITIS C SCREENING Routine 03/10/2017 from Last 3 Months or Most Recently Relevant to Health Maintenance Results * XR Fluoro Up To 1 Hour (04/27/2024 10:17 AM EST) Anatomical Region Laterality Modality Body Radio Fluoroscop y 04/27/2024 10:4 5 AM EST Narrative 04/27/2024 10:46 AM EST Fluoroscopic spot radiographs obtained during lumbosacral spine injection are submitted. No radiologist consultation was requested or provided during this procedure and there is no radiologist professional charge. This report is generated for documentation purposes only. The dose for this procedure was 10.02 mGy. PQRI CPT II G9500 -------- FINAL REPORT -------- Dictated By: Olu Knapp Dictated Date: 04/27/2024 10:45 ET Assigned Physician: Olu Knapp Reviewed and Electronically Signed By: Olu Knapp Signed Date: 04/27/2024 10:46 ET Workstation ID: [id number] Transcribed By: Self Edit Transcribed Date: 04/27/2024 10:45 ET Procedure Note Olu Knapp MD - 04/27/2024 Fluoroscopic spot radiographs obtained during lumbosacral spine injectionare submitted. No radiologist consultation was requested or providedduring this procedure and there is no radiologist professional charge.This report is generated for documentation purposes only. The dose for this procedure was 10.02 mGy. PQRI CPT II G9500 -------- FINAL REPORT -------- Dictated By: Olu Knapp Dictated Date: 04/27/2024 10:45 ET Assigned Physician: Olu Knapp Reviewed and Electronically Signed By: Olu Knapp Signed Date: 04/27/2024 10:46 ET Workstation ID: [id number] Transcribed By: Self Edit Transcribed Date: 04/27/2024 10:45 ET Parish Chavez MD IMG FLUOROSCOPY PROCEDURES Fin al Result * (ABNORMAL) POCT Glucose, blood (04/27/2024 8:30 AM EST) Glucose POCT 219(H) 70 - 100 mg/dL 04/27/2024 8:31 AM EST [facility] Blood Capillary blood specimen / Unknown 04/27/2024 8:30 AM EST 04/27/2024 8:32 AM EST Parish Chavez MD LAB POINT OF CARE TE ST DOCKED DEVICE UNSOLICITED RESULTS Final Result [facility] [address] [place] [address], [place] [phone] * (ABNORMAL) Lipid panel with reflex to direct LDL (03/09/2024 8:56 AM EST) Cholesterol 190 0 - 200 mg/dL LAB CHEMISTRY METHOD 03/09/2024 12:28 PM [facility] Triglycerides 132 0 - 150 mg/dL LAB CHEMISTRY METHOD 03/09/2024 12:28 PM [facility] HDL 47 >=40 mg/dL LAB CHEMISTRY METHOD 03/09/2024 12:28 PM [facility] LDL Calculated 117(H) 0 - 100 mg/dL LAB CHEMISTRY METHOD 03/09/2024 12:28 PM EST [facility] VLDL Cholesterol Juan David 26.4 mg/dL LAB CHEMISTRY METHOD 03/09/2024 12:28 PM [facility] Non HDL Chol. (LDL+VLDL) 143 <145 mg/dL LAB CHEMISTRY METHOD 03/09/2024 12:28 PM [facility] Chol/HDL Ratio 4.0 0.0 - 4.4 LAB CHEMISTRY METHOD 03/09/2024 12:28 PM EST [facility] Blood Venous blood specimen / Unknown Venipuncture / Unknown 03/09/2024 8:56 AM EST 03/09/2024 8:56 AM EST [facility] BLOOD ORDERABLES Final Res ult [facility] [address] [place] [address], [place] [phone] * Microalbumin creatinine urine ratio (03/09/2024 8:56 AM EST) Creatinine, Urine 98.0 mg/dL LAB CHEMISTRY METHOD 03/09/2024 1:43 PM [facility] Microalb, Ur 6.1 0.0 - 29.0 mg/L LAB CHEMISTRY METHOD 03/09/2024 1:43 PM [facility] Microalb/Creat Ratio 6 <30 mg/g creat LAB CHEMISTRY METHOD 03/09/2024 1:43 PM [facility] Urine Urine specimen obtained by clean catch procedure / Unknown Non-blood Collection / Unknown 03/09/2024 8:56 AM EST 03/09/2024 8:56 AM EST Capricealexus Bustos LAB URINE ORDERABLES Final Res ult [facility] [address] [place] [address], [place] [phone] * Hemoglobin A1c (03/09/2024 8:56 AM EST) Hemoglobin A1C 6.1 <6.5 % LAB CHEMISTRY METHOD 03/09/2024 12:38 PM EST [facility] Mean Bld Glu Estim. 128 mg/dL LAB CHEMISTRY METHOD 03/09/2024 12:38 PM [facility] Blood Venous blood specimen / Unknown Venipuncture / Unknown 03/09/2024 8:56 AM EST 03/09/2024 8:56 AM EST us Caprice Cosbysammy DO LAB BLOOD ORDERABLES Final Res ult [facility] [address] [place] [address], * (ABNORMAL) Basic metabolic panel (03/09/2024 8:56 AM EST) Sodium 135 133 - 145 mmol/L LAB CHEMISTRY METHOD 03/09/2024 12:24 PM [facility] Potassium 4.8 3.5 - 5.5 mmol/L LAB CHEMISTRY METHOD 03/09/2024 12:24 PM [facility] Chloride 101 96 - 110 mmol/L LAB CHEMISTRY METHOD 03/09/2024 12:24 PM [facility] CO2 27 21 - 32 mmol/L LAB CHEMISTRY METHOD 03/09/2024 12:24 PM [facility] Anion Gap 7 3 - 11 LAB CHEMISTRY METHOD 03/09/2024 12:24 PM [facility] Glucose 156(H) 70 - 100 mg/dL LAB CHEMISTRY METHOD 03/09/2024 12:24 PM [facility] BUN 18 5 - 25 mg/dL LAB CHEMISTRY METHOD 03/09/2024 12:24 PM [facility] Creatinine 1.04 0.70 - 1.30 mg/dL LAB CHEMISTRY METHOD 03/09/2024 12:24 PM [facility] eGFR 78 >=60 mL/min/1. 73m2 LAB CHEMISTRY METHOD 03/09/2024 12:24 PM [facility] Comment:Calculation based on the??Chronic Kidney Disease Epidemiology Collaboration (CKD-EPI) equation refit??without adjustment for race. BUN/Creatinine Ratio 17.3 LAB CHEMISTRY METHOD 03/09/2024 12:24 PM EST [facility] Calcium 9.8 8.5 - 10.5 mg/dL LAB CHEMISTRY METHOD 03/09/2024 12:24 PM EST [facility] Blood Venous blood specimen / Unknown Venipuncture / Unknown 03/09/2024 8:56 AM EST 03/09/2024 8:56 AM EST Caprice Bustos DO LAB BLOOD ORDERABLES Final Res ult [facility] [address] [place] [address], * Falls Risk Assessment (11/11/2023) Pathologist [facility] Falls Risk Assessment Abstracted Historical Provider HEALTH MAINTENANCE Final Result * Diabetes Foot Exam (11/11/2023) Pathologist [facility] Diabetes: Annual Foot Exam Abstracted Historical Provider HEALTH MAINTENANCE Final Result * Depression Screening (10/15/2022) Pathologist [facility] Depression Screening Abstracted Historical Provider HEALTH MAINTENANCE Final Result * US ABDOMINAL AORTA REAL TIME SCREEN STUDY AAA (10/17/2021 8:25 AM EDT) Anatomical Region Laterality Modality Ultrasound 09/18/2021 1:37 PM EDT Narrative 10/17/2021 10:46 AM EDT US ABDOMINAL AORTA REAL TIME SCREEN STUDY AAA ABDOMINAL AORTA SCREENING ULTRASOUND History: ??Screening for abdominal aortic aneurysm. Comparison: None. FINDINGS: ??The proximal aorta measures 2.6 cm in diameter. The mid aorta measures 1.8 cm in diameter. The distal aorta measures 1.7 cm in diameter. No periaortic fluid collection is seen. The aortic bifurcation is normal in appearance. The proximal bilateral common iliac arteries are normal in caliber. IMPRESSION: IMPRESSION: No visualized abdominal aortic aneurysm. Procedure Note Gloria Damian MD - 03/26/2022 US ABDOMINAL AORTA REAL TIME SCREEN STUDY AAA ABDOMINAL AORTA SCREENING ULTRASOUND History: Screening for abdominal aortic aneurysm. Comparison: None. FINDINGS: The proximal aorta measures 2.6 cm in diameter. The mid aortameasures 1.8 cm in diameter. The distal aorta measures 1.7 cm in diameter. No periaortic fluid collection is seen. The aortic bifurcation is normal in appearance. The proximal bilateralcommon iliac arteries are normal in caliber. IMPRESSION: IMPRESSION: No visualized abdominal aortic aneurysm. Jaleesa Yang MD IM US PROCEDURES Final Result * Hepatitis C Screening (03/10/2017) Hepatitis C Screening Abstracted Historical Provider MD HEALTH MAINTENANCE Final Result from Last 3 Months or Most Recently Relevant to Health Maintenance Insurance [facility] MEDICARE MEDICARE Care Teams Network Engineering Advisor Relationship Specialty Start Date End Date Caprice Bustos DO [address] [place] [id number] PCP - General 01/19/24
--- OUTSIDE RECORDS SUMMARY | 2024-05-20 11:06 | XMS_ITS | Encounter Summary ---
Author Organization [facility] Address [address] [place] [address] Care Team Providers Care Medical Staff Credentialing Coordinator Name Role Phone Caprice Bustos DO Primary Care Provider [phone] Encounter Details Date Type Department Care Team (Latest Contact Info) Description 04/27/2024 7:45 AM EST - 04/27/2024 11:59 PM EST Hospital Encounter [facility] [address] [place] [phone] Pain Discharge Disposition: Home or Self Care Social [...] your loved ones. For example, child development teacher or elderly care for an older [...] PM EST documented as of this encounter Medications at Time of Discharge armodafiniL (NUVIGIL) 50 mg tablet Take 0.5 tablets (25 mg total) by mouth 1 (one) time each day. Max Daily Amount: 25 mg atorvastatin (LIPITOR) 40 mg tablet Take 1 tablet (40 mg total) by mouth 1 (one) time each day. 08/08/2023 blood-glucose meter kit To monitor BS 11/07/2023 busPIRone (BUSPAR) 10 mg tablet Take 1 [...] time each day. 90 tablet 1 04/15/2024 glucose blood (Bonuu! LoyaltyTouch Ultra Test) test strip TEST BLOOD SUGAR WITH FOUR TIMES DAILY 400 strip 03/30/2024 Lactobacillus acidophilus (Probiotic) 10 billion cell capsule lamoTRIgine (LaMICtal) 100 mg tablet Take 1 tablet (100 mg total) by mouth 1 (one) time each day. lancets (Bonuu! LoyaltyTouch Delica Plus Lancet) 30 gauge TEST WITH FOUR TIMES DAILY 400 each 03/30/2024 lisinopril (PRINIVIL,ZESTRIL) 40 mg tablet Take 1 tablet (40 mg total) by mouth 1 (one) time each day. 12/19/2023 LORazepam (ATIVAN) 1 mg tablet Take 1 tablet (1 mg total) by mouth if needed. 11/25/2019 multivitamin (MULTIPLE VITAMINS ORAL) Take by mouth. traZODone (DESYREL) 100 mg tablet Take 1 tablet (100 mg total) by mouth at bedtime. documented as of this encounter Discharge Disposition Disposition Code Departure Means Destination Home or Self Care documented in this encounter Plan of Treatment Upcoming Encounters Date Type Department Care Team (Late st Contact Info) Description 06/04/2024 8:30 AM EST [facility] [address] [place] [address] Caprice Bustos DO [address] [place] [address] documented as of this encounter Procedures Procedure Name Priority Date/Time Associated Diagnosis Comments XR FLUORO UP TO 1 HOUR Routine 04/27/2024 10:17 AM EST Pain documented in this encounter Results * XR Fluoro Up To 1 [...] Signed Date: 04/27/2024 10:46 ET Workstation ID: [id number] Transcribed By: Self Edit Transcribed Date: 04/27/2024 [...] Signed Date: 04/27/2024 10:46 ET Workstation ID: [id number] Transcribed By: Self Edit Transcribed Date: 04/27/2024 10:45 ET us Parish Chavez MD IMG FLUOROSCOPY PROCEDURES Fin al Result documented in this encounter Visit Diagnoses Diagnosis Pain Generalized pain documented in this encounter Additional Health Concerns Assessment Noted Time PHQ-9 Depression Total Score: 1 02/27/20 24 11:45 AM EST documented as of this encounter Care Teams Medical Staff Credentialing Coordinator Relationship Specialty Start Date End Date Caprice Bustos DO [address] [facility] [place] [address] PCP - General 01/19/24 documented as of this encounter
--- OUTSIDE RECORDS SUMMARY | 2024-05-20 11:06 | XMS_ITS | Encounter Summary ---
Author Organization [facility] Address [address] [place] [address] Care Team Providers Care Shovel Logger Name Role Phone Batsheva Bustosmanalexus CORDERO Primary Care Provider [phone] Encounter Details Date Type Department Care Team (Late st Contact Info) Description 01/26/2024 9:53 AM EDT Hospital Encounter TH HISTORIC ENCOUNTERS EASTERN CONVERSION ONLY Parish Chavez MD [address] [place] [address] Social History Tobacco Use Types Packs/Day Years [...] for your loved ones. For example, child care counselor or elderly care for an older adult? [...] Office Visit Internal Medicine - [facility] [address] [facility] [place] [address] Caprice Bustos DO [address] [facility] [place] [address] documented as of this encounter Visit Diagnoses Not on filedocumented in this encounter Care Teams Shovel Logger Relationship Specialty Start Date End Date Caprice Bustos DO [address] [facility] [place] [address] PCP - General 01/19/24 documented as of this encounter
== END 2024-05-20 13:14 | disposition home or self-care (01) ==
LOC: HO.HOP 10:20
PROVIDERS: PCP Family Medicine; Visit Provider Psychiatry & Neurology Psychiatry
DX: F41.1 Generalized anxiety disorder (principal); F98.8 Other specified behavioral and emotional disorders with onset usually occurring in childhood and adolescence; F32.4 Major depressive disorder, single episode, in partial remission
CPT/HCPCS: 90833; 99213

== ENCOUNTER → 2024-05-20 10:20 | Outpatient (BNVA) | payer MEDICARE, SELFPAY | PROVIDERS: PCP Family Medicine; Visit Provider Psychiatry & Neurology Psychiatry | DX: F41.1 Generalized anxiety disorder (principal); F98.8 Other specified behavioral and emotional disorders with onset usually occurring in childhood and adolescence; F32.4 Major depressive disorder, single episode, in partial remission | CPT/HCPCS: 99212 ==

== ENCOUNTER 2024-08-19 10:37 | Outpatient (AMB) | payer MEDICARE, SELFPAY ==
--- NOTE | 2024-08-19 11:05 | A.OFFPSYCH_ITS ---
Intake Intake Visit Reasons: depression Allergies gabapentin Allergy (Intermediate, Verified 10/28/23 09:11) Rash aripiprazole [From Abilify] Adverse Reaction (Intermediate, Verified 10/28/23 09:11) Agitated bupropion [From Wellbutrin SR] Adverse Reaction (Intermediate, Verified 10/28/23 09:11) Agitated Medication List - Last Reconciled 08/19/24 by Giuseppe Gallegos MD atorvastatin 40 mg PO QAM buspirone 10 mg PO BID diclofenac sodium 1% (Arthritis Pain (diclofenac)) 4 grams topical QID glipizide ER 10 mg PO QAM lamotrigine 100 mg PO DAILY lisinopril 40 mg PO QAM lorazepam 1 mg PO BEDTIME PRN naloxone 4 mg/actuation (Narcan) 1 spray intranasal Q2M nortriptyline 10 mg PO BEDTIME sildenafil 50 mg PO DIRECTED tirzepatide (Mounjaro) mg subcut trazodone 100 mg PO BEDTIME 90 days HPI- Psychiatric Chief Complaint: depression HPI Narrative: Patient seen psychiatric follow-up. Patient has generally been doing okay has some degree of social activity. Has been worked management. Patient has been scoring low and the PHQ-9 and majo. Patient seems m ore assured of himself Patient is on Lamictal trazodone HS will be ending his work with his therapist Past Psychiatric History: THE PATIENT HAS A LONG HISTORY OF TREATMENT RESISTANT DEPRESSION HISTORY OF ADD CHRONIC DIFFICULTY TAKING CARE OF HIS OWN NEEDS HISTORY OF ALCOHOL ABUSE STRESSED TAKING CARE OF HIS LONG-TERM PARTNER Mental Status Exam Mental Status Exam Narrative: Mental Status Exam Narrative: Appearance: Casually dressed Behavior: Cooperative appropriate psychomotor: Within normal limits Speech: Normal volume and prosody Thought proccess logical and goal-directed Thought content: Future oriented no self-harming thoughts Mood: Euthymic Affect: Appropriate to mood full affect SI:denies HI:denies VH/AH:none Delusions: None Insight/judgment: Good insight and judgment Memory/cog: Intact Assessment and Plan Assessment & Plan (1) Major depressive disorder in partial remission: Status: Acute Code(s): F32.4 - Major depressive disorder, single episode, in partial remission (2) Generalized anxiety disorder: Status: Acute Code(s): F41.1 - Generalized anxiety disorder (3) ADD (attention deficit disorder) without hyperactivity: Status: Acute Code(s): F98.8 - Other specified behavioral and emotional disorders with onset usually occurring in childhood and adolescence Plan Patient is doing quite well are modafinil discontinued was causing grinding of teeth at night BuSpar increased back to 10 twice a day trazodone 100 is significantly mg at bedtime he is taking nortriptyline 10 mg at bedtime prescribed by his pain management physician he is not taking Pristiq his m improved he seems more engaged with life. He did find someone to rent the house he owns next to his house an old friend and this will be very reassuring Medications: Changed From trazodone 200 mg (2 x 100 mg) PO BEDTIME 90 days 180 tabs 1RF To trazodone 100 mg PO BEDTIME 90 tabs 1RF 90 days From lamotrigine 50 mg (1/2 x 100 mg) PO BID 90 tabs 1RF To lamotrigine 100 mg PO DAILY 90 tabs 1RF Refilled lamotrigine 100 mg PO DAILY 90 tabs 1RF Discontinued desvenlafaxine succinate ER Discontinued Reason: Doctor's Order 25 mg PO DAILY 30 tabs 2RF armodafinil Discontinued Reason: Change Referral Type 25 - 50 mg (0.5 - 1 x 50 mg) PO QAM 30 tabs 1RF G47.30 - Sleep apnea, unspecified Counseling and coordination of Care Details: I spent [] minutes reviewing the record, seeing the patient and documenting in the medical record. Counseling provided to the patient/caregiver as outlined below. Addressed patient/caregiver concerns regarding current medication regime including effective adherence. Addressed patient/caregiver concerns regarding diagnosis and prognosis including accuracy of diagnosis, prognosis over time, impact of diagnosis. Addressed patient/caregiver concerns regarding impact of recent stressors. 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 Generalized anxiety disorder Depression, major, severe recurrence Controlled diabetes mellitus type II without complication Hypertension Surgical History Hx of spinal surgery H/O colonoscopy History of surgery S/P placement of nerve stimulator Social History Are you a primary child day care center worker to a significant other at home: No Do you presently have visiting nurse or other home services: No Alcohol intake: current Alcohol intake frequency: 3 or more drinks per day Alcohol type: beer Patient Tobacco Use Status: Former Tobacco user Tobacco use type: Cigarette Years Smoked: 2.5 Social History: Pts parents are used work at [employer] nature identifies as dye no children 1 brother in [place] Substance History: History of alcoholism denies on I'History of alcoholism denies ongoing drinking Coding Level of Care Code Est Pt Level 4 (29767) Diagnoses Major depressive disorder in partial remission F32.4 Generalized anxiety disorder F41.1 ADD (attention deficit disorder) without hyperactivity F98.8
--- OUTSIDE RECORDS SUMMARY | 2024-08-19 11:44 | XMS_ITS | Encounter Summary ---
Author Organization [facility] Address [address] [place] [address] Care Team Providers Care Distribution Field Technician Name Role Phone Davis Campos Primary Care Provider [phone] Encounter Details Date Type Department Care Team (Late st Contact Info) Description 01/06/2024 8:21 AM EDT Hospital Encounter TH HISTORIC ENCOUNTERS EASTERN CONVERSION ONLY Parish Chavez MD [address] [place] [address] Social History Tobacco Use Types Packs/Day Years [...] for your loved ones. For example, child and adolescent psychologist or elderly care for an older adult? [...] Care Team (Late st Contact Info) Description 08/20/2024 8:30 AM EDT Office Visit Internal Medicine - [facility] [address] [place] [address] Caprice Bustos DO [address] [place] [address] 10/15/2024 7:30 AM EDT Office Visit Endocrinology - [address] [address] Dyan Torres PA [address] [place] [address] documented as of this encounter Visit Diagnoses Not on filedocumented in this encounter Care Teams Distribution Field Technician Relationship Specialty Start Date End Date Davis Campos PA [address] [place] [address] PCP - General 01/06/24 01/18/24 documented as of this encounter
--- OUTSIDE RECORDS SUMMARY | 2024-08-19 11:44 | XMS_ITS | Encounter Summary ---
Author Organization [facility] Address [address] [place] [address] Care Team Providers Care Unarmed Security Officer Name Role Phone Batsheva Bustosmanalexus CORDERO Primary Care Provider [phone] Encounter Details Date Type Department Care Team (Late st Contact Info) Description 01/26/2024 9:53 AM EDT Hospital Encounter TH HISTORIC ENCOUNTERS EASTERN CONVERSION ONLY Parish Chavez MD [address] [place] [address] Social History Tobacco Use Types Packs/Day Years [...] for your loved ones. For example, child caregiver or elderly care for an older adult? [...] AM EDT [facility] [address] [place] [address] Caprice Bustos DO [address] [facility] [place] [address] 10/15/2024 7:30 AM EDT Office Visit Endocrinology [address] [address] Dyan Torres PA [address] [facility] [place] [address] documented as of this encounter Visit Diagnoses Not on filedocumented in this encounter Care Teams Unarmed Security Officer Relationship Specialty Start Date End Date Caprice Bustos DO [address] [facility] [place] [address] PCP - General 01/19/24 documented as of this encounter
--- OUTSIDE RECORDS SUMMARY | 2024-08-19 11:44 | XMS_ITS | Clinical Summary ---
Author Organization [facility] [address] [facility] Address [address] [place] [address] Phone Care Team Providers Care Event Coordinator Marketing And Sales Name Role Phone Caprice Bustos DO Primary Care Provider [phone] Allergies Active Allergy Reactions Criticality Noted Date Comments Gabapentin Rash 03/24/2023 Metformin Low 12/16/2019 GI discomfort Medications blood-glucose meter kit To monitor BS 11/07/19 Active multivitamin (MULTIPLE VITAMINS ORAL) Take by mouth. Active cholecalciferol (VITAMIN D-3) 25 mcg (1,000 unit) capsule Take 1 capsule (1,000 Units total) by mouth 1 (one) time each day. Active LORazepam (ATIVAN) 1 mg tablet Take 1 tablet (1 mg total) by mouth if needed. 11/25/19 Active traZODone (DESYREL) 100 mg tablet Take 1 tablet (100 mg total) by mouth at bedtime. Active Lactobacillus acidophilus (Probiotic) 10 billion cell capsule Active lancets (OneTouch Delica Plus Lancet) 30 gauge TEST WITH FOUR TIMES DAILY 400 each 03/30/20 24 Active glucose blood (OneTouch Ultra Test) test strip TEST BLOOD SUGAR WITH FOUR TIMES DAILY 400 strip 03/30/20 24 Active lamoTRIgine (LaMICtal) 100 mg tablet Take 1 tablet (100 mg total) by mouth 1 (one) time each day. Active GENERIC EXTERNAL MEDICATION Promiseb gel Active lisinopril (PRINIVIL,ZESTR IL) 40 mg tablet Take 1 tablet (40 mg total) by mouth 1 (one) time each day. 90 tablet 1 06/19/19 25 Active atorvastatin (LIPITOR) 40 mg tablet TAKE 1 TABLET BY MOUTH DAILY 90 tablet 1 07/15/19 25 Active nortriptyline (PAMELOR) 10 mg capsule Take 1 capsule (10 mg total) by mouth at bedtime. 06/22/19 25 Active busPIRone (BUSPAR) 10 mg tablet Take 1 tablet (10 mg total) by mouth 1 (one) time each day. 04/12/19 25 Active tirzepatide (Mounjaro) 5 mg/0.5 mL injection Inject 0.5 mL (5 mg total) under the skin every 7 (seven) days. 2 mL 07/30/19 25 Active tirzepatide (Mounjaro) 2.5 mg/0.5 mL injectionIndica tions:Type 2 diabetes mellitus with other diabetic kidney complication, without long-term current use of insulin ([facility] V24, [facility] V28) Inject 0.5 mL (2.5 mg total) under the skin every 7 (seven) days. 2 mL 07/17/19 25 025 Discontinued Active Problems Problem Noted Date Diagnosed Date Opioid abuse ([facility] V24, [facility] V28) 01/29/20 23 Microalbuminuria 03/26/2022 Synovial cyst of lumbar facet [...] (diabetes mellitus), type 2 with renal complications ([facility] V24, [facility] V28) 08/03/2013 Depression 07/30/2013 Overview (01/21/2024): Psych through [facility] Dr. Gallegos HTN (hypertension) 07/30/2013 Hyperlipidemia 07/30/2013 Obesity 07/30/2013 AARON (obstructive sleep apnea) 07/30/2013 Overview (01/21/2024): On CPAP Testosterone deficiency 07/30/2013 Encounters Date Type Department Care Team Description 07/28/2024 Telephone Endocrinology - [address] [address] Dyan Torres PA medication update 07/16/2024 8:00 AM EDT Consult Endocrinology - [address] [address] Dyan Torres PA Type 2 diabetes mellitus with other diabetic kidney complication, without long-term current use of insulin ([facility] V24, [facility] V28) (Primary Dx); Hypertension, unspecified type; Hyperlipidemia, unspecified hyperlipidemia type 06/25/2024 Telephone Internal Medicine - [facility] [address] [place] [address] Caprice Bustos DO Medication Problem 06/22/2024 7:22 AM EDT - 06/22/2024 11:59 PM EDT Hospital Encounter [facility] [address] [place] [phone] Parish Chavez MD Radiculopathy, lumbar region Discharge Disposition: Home or Self Care 06/09/2024 Telephone Internal Medicine - [facility] [address] [place] [address] Caprice Bustos DO Prior Authorization 06/09/2024 Telephone Internal Medicine - [facility] [address] [place] [address] Caprice Bustos DO Medication Problem 06/04/2024 8:30 AM EST Office Visit Internal Medicine - [address] [place] [address] Caprice Bustos DO Hyperlipidemia, unspecified hyperlipidemia type (Primary Dx); Type 2 diabetes mellitus with other diabetic kidney complication, without long-term current use of insulin ([facility] V24, [facility] V28); Hypertension, unspecified type; AARON (obstructive sleep apnea); Class 1 obesity with serious comorbidity and body mass index (BMI) of 33.0 to 33.9 in adult, unspecified obesity type; Screening for colon cancer from Last 3 Months Immunizations Name Administration [...] (diabetes mellitus), type 2 with renal complications (CMS/HCC V24, CMS/HCC V28) 08/03/2013 DX:DM (diabetes mellitus), t ype 2 with renal complications ([facility]) Microalbuminuria 03/26/2022 DX:Microalbumin uria Family History Medical [...] your loved ones. For example, child support specialist or elderly care for an older adult? [...] Sign Reading Time Taken Comments Blood Pressure 112/62 07/16/2024 8:01 AM EDT C Pulse 102 07/16/2024 8:01 AM EDT Temperature 36.4 ??C (97.5 ??F) 07/16/2024 8:01 AM ED T Respiratory Rate 16 06/22/2024 7:46 AM EDT Oxygen Saturation 96% 07/16/2024 8:01 AM EDT Inhaled Oxygen Concentration - - Weight 88.2 kg (194 lb 6.4 oz) 07/16/2024 8:01 A M EDT Height 160 cm (5' 3 ) 07/16/2024 8:01 AM EDT Body Mass Index 34.44 07/16/2024 8:01 AM EDT Plan of Treatment Upcoming Encounters Date Type Department Care Team (Late st Contact Info) Description 08/20/2024 8:30 AM EDT [facility] [address] [place] [address] Caprice Bustos DO [address] [place] [address] 10/15/2024 7:30 AM EDT Office Visit Endocrinology - [address] [address] Dyan Torres PA [address] [place] [address] Health Maintenance Due Date Last Done Comments Diabetes: Annual Retina Eye Exam 1965 Hepatitis A Vaccines (1 of 2 - Risk 2-dose series) 1973 DTaP,Tdap,and Td Vaccines (2 - Td or Tdap) 06/17/2024 06/17/2014 Diabetes: Annual Foot Exam 11/10/2024 11/11/2023 Diabetes: Blood Sugar Control Test (HGBA1C) 12/02/2024 06/04/2024, 03/09/2024, 08/06/2023, Additional history exists Medicare Annual Wellness Visit 03/05/2025 03/05/2024 Social Influencers of Health Screening 03/05/2025 03/05/2024 Diabetes: Annual Urine Albumin-Creatinine Ratio (uACR) 03/09/2025 03/09/2024, 11/28/2022 Diabetes: Annual GFR (Glomerular Filtration Rate) 03/09/2025 03/09/2024, 08/29/2022 Hypertension/CHF/CAD Annual BMP Blood Test 03/09/2025 03/09/2024, 08/29/2022 Falls Risk Assessment 04/27/2025 04/27/2024, 024 Depression Screening 08/14/2025 08/14/2024, 10/16/19 23 Cholesterol Screening (Lipid Panel) 03/09/2029 03/09/2024, 11/28/2022 Colorectal Cancer Screening: Colonoscopy 08/03/2030 08/03/2020 Hepatitis C Screening Completed 03/10/2017 Zoster Vaccines Completed 08/28/2021, 06/06, 01/19/2014, Additional history exists Abdominal Aortic Aneurysm (AAA) Screen Completed 10/17/2021 Pneumococcal Vaccine: 50+ Years Completed 11/11/2022, 09/18/2021, 12/28/2015, Additional history exists RSV Immunization Adult Patients Completed 11/25/2022 Influenza Vaccine Completed 12/19/2023, , 12/24/2021, Additional history exists COVID-19 Vaccine Completed 07/01/2024, , 06/27/2023, Additional history exists HIB Vaccines Aged Out [...] age to complete this topic Meningococcal B Vaccine Aged Out No l onger eligible based on patient's age to complete this topic RSV Immunization Patients Under 20 months Aged Out No longer eligible based on patient's age to complete this topic Varicella Vaccines Aged Out No longer eligible based on patient's age to complete this topic Procedures Procedure Name Priority Date/Time Associated Diagnosis Comments POC GLUCOSE Routine 07/16/2024 8:05 AM EDT Type 2 diabetes mellitus with other diabetic kidney complication, without long-term current use of insulin ([facility] V24, [facility] V28) POCT GLUCOSE BLOOD Routine 06/22/2024 7: 47 AM EDT HEMOGLOBIN A1C Routine 06/04/2024 9:50 AM EST Type 2 diabetes mellitus with other diabetic kidney complication, without long-term current use of insulin ([facility] V24, [facility] V28) MICROALBUMIN CREATININE URINE RATIO Routine 03/09/2024 8:56 AM EST Type 2 diabetes mellitus with other diabetic kidney complication, without long-term current use of insulin ([facility] V24, [facility] V28) BASIC METABOLIC PANEL Routine 03/09/2024 8:56 AM EST Hypertension, unspecified type LIPID PANEL WITH REFLEX TO DIRECT LDL Routine 03/09/2024 8:56 AM EST Hyperlipidemia, unspecified hyperlipidemia type FALLS RISK ASSESSMENT Routine 11/11/2023 DIABETES FOOT EXAM Routine 11/11/2023 DEPRESSION SCREENING Routine 10/15/2022 ABDOMINAL AORTA REAL TIME SCREEN STUDY AAA Routine 10/17/2021 8:25 AM EDT Encounter for screening for cardiovascular disorders HEPATITIS C SCREENING Routine 03/10/2017 from Last 3 Months or Most Recently Relevant to Health Maintenance Results * POC glucose manually resulted (07/16/2024 8:05 AM EDT) Glucose POC 299 mg/dL Comment:Non fasting Blood Capillary blood specimen / Unknown 07/16/2024 8:05 AM EDT Dyan OCASIO POINT OF CARE TEST ENTER/ED IT ORDERABLES Final Result * (ABNORMAL) POCT Glucose, blood (06/22/2024 7:47 AM EDT) Glucose POCT 248(H) 70 - 100 mg/dL 06/22/2024 7:47 AM EDT [facility] Blood Capillary blood specimen / Unknown 06/22/2024 7:47 AM EDT 06/22/2024 7:49 AM EDT Parish Chavez MD LAB POINT OF CARE TE ST DOCKED DEVICE UNSOLICITED RESULTS Final Result [facility] [address] [place] [address], * (ABNORMAL) Hemoglobin A1c (06/04/2024 9:50 AM EST) Hemoglobin A1C 7.4(H) <6.5 % LAB CHEMISTRY METHOD 06/07/2024 2:13 PM EST [facility] Mean Bld Glu Estim. 166 mg/dL LAB CHEMISTRY METHOD 06/07/2024 2:13 PM EST [facility] Blood Venous blood specimen / Unknown Venipuncture / Unknown 06/04/2024 9:50 AM EST 06/04/2024 9:50 AM EST Caprice Bustos LAB BLOOD ORDERABLES Final Res ult [facility] [address] [place] [address], [place] [phone] * (ABNORMAL) Lipid panel with reflex to direct LDL (03/09/2024 8:56 AM EST) Cholesterol 190 0 - 200 mg/dL LAB CHEMISTRY METHOD 03/09/2024 12:28 PM EST [facility] Triglycerides 132 0 - 150 mg/dL LAB CHEMISTRY METHOD 03/09/2024 12:28 PM [facility] HDL 47 >=40 mg/dL LAB CHEMISTRY METHOD 03/09/2024 12:28 PM [facility] LDL Calculated 117(H) 0 - 100 mg/dL LAB CHEMISTRY METHOD 03/09/2024 12:28 PM EST [facility] VLDL Cholesterol Juan David 26.4 mg/dL LAB CHEMISTRY METHOD 03/09/2024 12:28 PM EST [facility] Non HDL Chol. (LDL+VLDL) 143 <145 mg/dL LAB CHEMISTRY METHOD 03/09/2024 12:28 PM [facility] Chol/HDL Ratio 4.0 0.0 - 4.4 LAB CHEMISTRY METHOD 03/09/2024 12:28 PM [facility] Blood Venous blood specimen / Unknown Venipuncture / Unknown 03/09/2024 8:56 AM EST 03/09/2024 8:56 AM EST Caprice Bustos DO LAB BLOOD ORDERABLES Final Res ult [facility] [address] [place] [address], [place] [phone] * Microalbumin creatinine urine ratio (03/09/2024 8:56 AM EST) Creatinine, Urine 98.0 mg/dL LAB CHEMISTRY METHOD 03/09/2024 1:43 PM [facility] Microalb, Ur 6.1 0.0 - 29.0 mg/L LAB CHEMISTRY METHOD 03/09/2024 1:43 PM [facility] Microalb/Creat Ratio 6 <30 mg/g creat LAB CHEMISTRY METHOD 03/09/2024 1:43 PM [facility] Urine Urine specimen obtained by clean catch procedure / Unknown Non-blood Collection / Unknown 03/09/2024 8:56 AM EST 03/09/2024 8:56 AM EST us Caprice Bustos DO LAB URINE ORDERABLES Final Res ult [facility] [address] [place] [address], [place] [phone] * (ABNORMAL) Basic metabolic panel (03/09/2024 8:56 AM EST) Pathologist [facility] Sodium 135 133 - 145 mmol/L LAB CHEMISTRY METHOD 03/09/2024 12:24 PM [facility] Potassium 4.8 3.5 - 5.5 mmol/L LAB CHEMISTRY METHOD 03/09/2024 12:24 PM [facility] Chloride 101 96 - 110 mmol/L LAB CHEMISTRY METHOD 03/09/2024 12:24 PM [facility] CO2 27 21 - 32 mmol/L LAB CHEMISTRY METHOD 03/09/2024 12:24 PM [facility] Anion Gap 7 3 - 11 LAB CHEMISTRY METHOD 03/09/2024 12:24 PM [facility] Glucose 156(H) 70 - 100 mg/dL LAB CHEMISTRY METHOD 03/09/2024 12:24 PM EST [facility] BUN 18 5 - 25 mg/dL LAB CHEMISTRY METHOD 03/09/2024 12:24 PM [facility] Creatinine 1.04 0.70 - 1.30 mg/dL LAB CHEMISTRY METHOD 03/09/2024 12:24 PM [facility] eGFR 78 >=60 mL/min/1. 73m2 LAB CHEMISTRY METHOD 03/09/2024 12:24 PM [facility] Comment:Calculation based on the??Chronic Kidney Disease Epidemiology Collaboration (CKD-EPI) equation refit??without adjustment for race. BUN/Creatinine Ratio 17.3 LAB CHEMISTRY METHOD 03/09/2024 12:24 PM [facility] Calcium 9.8 8.5 - 10.5 mg/dL LAB CHEMISTRY METHOD 03/09/2024 12:24 PM [facility] Blood Venous blood specimen / Unknown Venipuncture / Unknown 03/09/2024 8:56 AM EST 03/09/2024 8:56 AM EST Caprice Busots DO LAB BLOOD ORDERABLES Final Res ult [facility] [address] [place] [address], * Falls Risk Assessment (11/11/2023) Pathologist [facility] Falls Risk Assessment Abstracted Historical Provider HEALTH MAINTENANCE Final Result * Diabetes Foot Exam (11/11/2023) Pathologist [facility] Diabetes: Annual Foot Exam Abstracted Historical Provider HEALTH MAINTENANCE Final Result * Depression Screening (10/15/2022) Pathologist [facility] Depression Screening Abstracted Historical Provider HEALTH MAINTENANCE [...] visualized abdominal aortic aneurysm. Jaleesa Yang MD [facility] US PROCEDURES Final Result * Hepatitis C Screening (03/10/2017) Hepatitis C Screening Abstracted Historical Provider HEALTH MAINTENANCE Final Result from Last 3 Months or Most Recently Relevant to Health Maintenance Insurance [facility] MEDICARE Care Teams Event Coordinator Marketing And Sales Relationship Specialty Start Date End Date Caprice Bustos DO [address] [place] [address] PCP - General 01/19/24
--- OUTSIDE RECORDS SUMMARY | 2024-08-19 11:44 | XMS_ITS | Clinical Summary ---
Author Organization [facility] Address [address] [place] [address] Care Team Providers Care Cloth Bleaching Supervisor Name Role Phone Davis Campos PA-C Primary Care Provider [phone] Allergies Active Allergy Reactions Criticality Noted Date [...] Immunizations Name Administration Dates Next Due Covid-19 ([email or web address]) Dilution Required 01/04/2021 Influenza Trivalent (Fluzone High [...] age to complete this topic Care Teams Cloth Bleaching Supervisor Relationship Specialty Start Date End Date Davis Campos PA-C [address] [place] [address] PCP - General Medical Services 12/06/20
== END 2024-08-19 10:42 | disposition home or self-care (01) ==
LOC: HO.HOP 10:37
PROVIDERS: PCP Family Medicine; Visit Provider Psychiatry & Neurology Psychiatry
DX: F32.4 Major depressive disorder, single episode, in partial remission (principal); F41.1 Generalized anxiety disorder; F98.8 Other specified behavioral and emotional disorders with onset usually occurring in childhood and adolescence
CPT/HCPCS: 99214

== ENCOUNTER → 2024-08-19 10:37 | Outpatient (BNVA) | payer MEDICARE, SELFPAY | PROVIDERS: PCP Family Medicine; Visit Provider Psychiatry & Neurology Psychiatry | DX: F32.4 Major depressive disorder, single episode, in partial remission (principal); F41.1 Generalized anxiety disorder; F98.8 Other specified behavioral and emotional disorders with onset usually occurring in childhood and adolescence | CPT/HCPCS: 99212 ==

== ENCOUNTER 2024-11-22 10:35 | Outpatient (AMB) | payer MEDICARE, SELFPAY ==
--- OUTSIDE RECORDS SUMMARY | 2024-01-26 09:53 | XMS_ITS | Encounter Summary ---
Author Organization [facility] Address [address] [place] [address] Care Team Providers Care Timber Management Assistant Name Role Phone Batsheva Bustosmanalexus CORDERO Primary Care Provider [phone] Encounter Details Date Type Department Care Team (Late st Contact Info) Description 01/26/2024 9:53 AM EDT Hospital Encounter TH HISTORIC ENCOUNTERS EASTERN CONVERSION ONLY Parish Chavez MD [address] [place] [address] Social History Tobacco Use Types Packs/Day Years [...] care for your loved ones. For example, exceptional children's teacher or elderly care for an older adult? [...] Date Recorded What is your living situation? 1 05/05/2023 Interpersonal Safety Answer Date Record ed Physical Abuse 06/22/2024 Verbal Abuse 06/22/2024 Sex and Gender Information Value Date Recorded Sex Assigned at Male 03/30/2024 12:21 PM EST Legal Sex Male 2:15 PM EST Gender Identity Male 03/30/2024 12:21 PM EST Sexual Orientation Lesbian or [place] 03/30/2024 12 :21 PM EST documented as of this encounter Plan of Treatment Upcoming Encounters Date Type Department Care Team (Late st Contact Info) Description 12/10/2024 1:00 PM EDT Office Visit Internal Medicine - [facility] [address] [place], [place] [phone] Jase Hyatt PA [address] [place], [place] 03/18/2025 7:30 AM EST Office Visit Endocrinology - [address] [phone] Dyan Torres PA [address] [place], [place] 05/31/2025 8:30 AM EST Office Visit Internal Medicine - [facility] [address] [place], [place] [phone] Felisa Gasca MD [address] [place], [place] documented as of this encounter Visit Diagnoses Not on filedocumented in this encounter Care Teams Timber Management Assistant Relationship Specialty Start Date End Date Caprice Bustos DO [address] [place], [place] PCP - General 01/19/24 documented as of this encounter
--- NOTE | 2024-11-22 11:20 | MHC.OFFVISPS ---
Intake Intake Visit Reasons: depression Allergies gabapentin Allergy (Intermediate, Verified 10/28/23 09:11) Rash aripiprazole (From Abilify) Adverse Reaction (Intermediate, Verified 10/28/23 09:11) Agitated bupropion (From Wellbutrin SR) Adverse Reaction (Intermediate, Verified 10/28/23 09:11) Agitated Medication List - Last Reconciled 11/22/24 by Giuseppe Gallegos MD atorvastatin 40 mg PO QAM buprenorphine 7.5 mcg/hour 1 patch topical QWEEK buspirone 10 mg PO BID diclofenac sodium 1% (Arthritis Pain (diclofenac)) 4 grams topical QID glipizide ER 10 mg PO QAM lamotrigine 100 mg PO DAILY lisinopril 40 mg PO QAM naloxone 4 mg/actuation (Narcan) 1 spray intranasal Q2M sildenafil 50 mg PO DIRECTED tirzepatide (Mounjaro) mg subcut trazodone 200 mg PO BEDTIME HPI- Psychiatric Chief Complaint: depression HPI Narrative: Patient seen in psychiatric follow-up. 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 Patient with history of alcoholism did have a bout a number of months ago misuse of opiates now discontinued. Patient doing somewhat better more social active and engaged in a better way. PHQ-9 2 PARVEZ 2. His leg pain is doing somewhat better he is no longer going to [facility] Past Psychiatric History: THE PATIENT HAS A LONG HISTORY OF TREATMENT RESISTANT DEPRESSION HISTORY OF ADD CHRONIC DIFFICULTY TAKING CARE OF HIS OWN NEEDS HISTORY OF ALCOHOL ABUSE STRESSED TAKING CARE OF HIS LONG-TERM PARTNER Mental Status Exam Mental Status Exam Narrative: Mental Status Exam Narrative: Appearance: Casually dressed Behavior: Cooperative appropriate psychomotor: Within normal limits Speech: Normal volume and prosody Thought proccess logical and goal-directed Thought content: Future oriented no self-harming thoughts focused on treatment focused on how to re-engage with life Mood: Euthymic Affect: Appropriate to mood full affect SI:denies HI:denies VH/AH:none Delusions: None Insight/judgment: Good insight and judgment Memory/cog: Intact Assessment and Plan Assessment & Plan (1) ADD (attention deficit disorder) without hyperactivity: Status: Acute Code(s): F98.8 - Other specified behavioral and emotional disorders with onset usually occurring in childhood and adolescence (2) Generalized anxiety disorder: Status: Acute Code(s): F41.1 - Generalized anxiety disorder (3) Major depressive disorder in partial remission: Status: Acute Code(s): F32.4 - Major depressive disorder, single episode, in partial remission Plan Encourage socialization and hobbies patient used to do. Continue trazodone at HS warned regarding morning sedation buspirone 10 b.i.d. seems to be helpful Lamictal 100 mg daily. Follow-up 3 months. Patient knows how to reach this resume writer if needed Encourage behavioral activation Medications: Changed From trazodone 200 mg PO BEDTIME To trazodone 200 mg (2 x 100 mg) PO BEDTIME 180 tabs 1RF 3 months From buspirone 10 mg PO BID 60 tabs 2RF To buspirone 10 mg PO BID 180 tabs 2RF 3 months Refilled lamotrigine 100 mg PO DAILY 90 tabs 1RF Counseling and coordination of Care Pt. Self Management counseling: Behavior activation Details-Self Mgmt counseling: Encourage sobriety Medication management counseling: Effectiveness, Side effects and Dosing range Diagnosis and Prognosis Counseling: Adequacy of current interventions Details: I spent [30] minutes reviewing the record, seeing the patient and documenting in the medical record. Counseling provided to the patient/caregiver as outlined below. Addressed patient/caregiver concerns regarding current medication regime including effective adherence. Addressed patient/caregiver concerns regarding diagnosis and prognosis including accuracy of diagnosis, prognosis over time, impact of diagnosis. Addressed patient/caregiver concerns regarding impact of recent stressors. 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 Generalized anxiety disorder Depression, major, severe recurrence Controlled diabetes mellitus type II without complication Hypertension Surgical History Hx of spinal surgery H/O colonoscopy History of surgery S/P placement of nerve stimulator Social History Are you a primary lawn care specialist to a significant other at home: No Do you presently have visiting nurse or other home services: No Alcohol intake: current Alcohol intake frequency: 3 or more drinks per day Alcohol type: beer Patient Tobacco Use Status: Former Tobacco user Tobacco use type: Cigarette Years Smoked: 2.5 Social History: Pts parents are used work at [employer] nature identifies as dye no children 1 brother in [place] Substance History: History of alcoholism denies on I'History of alcoholism denies ongoing drinking Coding Level of Care Code Est Pt Level 4 (16991) Diagnoses ADD (attention deficit disorder) without hyperactivity F98.8 Generalized anxiety disorder F41.1 Major depressive disorder in partial remission F32.4
--- OUTSIDE RECORDS SUMMARY | 2024-11-22 11:34 | XMS_ITS | Encounter Summary ---
Author Organization [facility] Address [address] [place] [address] Care Team Providers Care Physical Education Specialist Name Role Phone Jaleesa Yang MD Primary Care Provider Giuseppe Winkler Unavailable Unavailable Kirit Yanes Unavailable Unavailable Caprice Bustos DO Primary Care Provider [phone] Encounter Details Date Type Department Care Team Description 03/05/2023 Interactive Video Technician Report Medical Records [address] [place] [id number] Praveen Barclay MD, PHD Social History Tobacco Use Types Packs/Day Years Used Date Smoking Tobacco: Former Cigarettes 0.8 3 Smokeless Tobacco: Never Comments:quit about 25 years ago Alcohol Use Standard Drinks/Week Comments Yes 3 (1 standard drink = 0.6 oz pur e alcohol) 3 per night Alcohol Habits Answer Date Recorded How often do you have a drin k containing alcohol? 4 or more times a week 10/15/2022 How many drinks containing a lcohol do you have on a typical day when you are drinking? 1 or 2 10/15/2022 How often do you have six or more drinks on one occasion? Never 10/15/2022 Social Isolation Answer Date Recorded In a typical week, how many times do you talk on the phone with family, friends, or neighbors? More than three times a week 10/15/2022 How often do you get togethe r with friends or relatives? Never 10/15/2022 How often do you attend [facility] or hoahaoism services? Never 10/15/2022 Do you belong to any clubs o r organizations such as jainism groups, unions, fraternal or athletic groups, or school groups? No 10/15/2022 How often do you attend meet ings of the clubs or organizations you belong to? Never 10/15/2022 Are you now , , , , never or living with a partner? 10/15/2022 Physical Activity Answer Date Recorded On average, how many days pe r week do you engage in moderate to strenuous exercise (like walking fast, running, jogging, dancing, swimming, biking, or other activities that cause a light or heavy sweat)? 0 days 10/15/2022 On average, how many minutes do you engage in exercise at this level? 0 min 10/15/2022 Stress Answer Date Recorded Do you feel stress - tense, restless, nervous, or anxious, or unable to sleep at night because your mind is troubled all the time - these days? Rather much 10/15/2022 Financial Resource Strain Answer Date R ecorded How hard is it for you to pa y for the very basics like food, housing, medical care, and heating? Not hard at all 10/15/2022 Intimate Partner Violence Answer Date R ecorded Within the last year, have y ou been afraid of your partner or ex-partner? No 10/15/2022 Within the last year, have y ou been humiliated or emotionally abused in other ways by your partner or ex-partner? No Within the last year, have y ou been kicked, hit, slapped, or otherwise physically hurt by your partner or ex-partner? No 10/15/2022 Within the last year, have y ou been raped or forced to have any kind of sexual activity by your partner or ex-partner? No 10/15/2022 Food Insecurity Answer Date Recorded Within the past 12 months, y ou worried that your food would run out before you got money to buy more. Never true 10/15/2022 Within the past 12 months, t he food you bought just didn't last and you didn't have money to get more. Never true 10/15/2022 Transportation Needs Answer Date Record ed In the past 12 months, has l ack of transportation kept you from medical appointments or from getting medications? No 10/05 In the past 12 months, has l ack of transportation kept you from meetings, work, or getting things needed for daily living? No 10/15/2022 Housing Stability Answer Date Recorded In the last 12 months, was t here a time when you were not able to pay the mortgage or rent on time? No 10/15/2022 In the last 12 months, how many places have you lived? 1 10/15/2022 In the last 12 months, was t here a time when you did not have a steady place to sleep or slept in a assisted (including now)? No 10/15/2022 Sex Assigned at Date Recorded Not on file Job Start Date Occupation Industry Not on file Not on file Not on file COVID-19 Exposure Response Date Recorded In the last 10 days, have yo u been in contact with someone who was confirmed or suspected to have Coronavirus/COVID-19? No / Unsure 02/14/2023 9:18 AM EST documented as of this encounter Plan of Treatment Not on file documented as of this encounter Visit Diagnoses Not on filedocumented in this encounter Care Teams Physical Education Specialist Relationship Specialty Start Date End Date Jaleesa Yang MD PCP - General Family Practice 06/12/21 01/18/24 Caprice Bustos DO [address] [place] [id number] PCP - General Internal Medicine 01/19/24 Giuseppe Gallegos PSYCHIATRY 10/15/22 Kirit Yanes Ophthalmology 10/15/22 documented as of this encounter
--- OUTSIDE RECORDS SUMMARY | 2024-11-22 11:35 | XMS_ITS | Clinical Summary ---
Author Organization [facility] Address [address] [place] [address] Care Team Providers Care Scrum Project Manager Name Role Phone Davis Campos PA-C Primary [...] be patient and will f/u with Dr. aBrclay in about 4-6 weeks. Immunizations Name Administration Dates Next Due Covid-19 ([employer]) Dilution Required 01/04/2021 Influenza Trivalent (Fluzone High [...] 85 12/24/2023 9:00 AM EDT Temperature 36.6 C (97.8 F) 12/24/2023 9:00 AM EDT Respiratory Rate - - Oxygen Saturation 97% [...] 2023 12/24/2022, 07/08/2021, 01/04/2021, Additional history exists DTap / Tdap / Td (2 - Td or Tdap) 06/17/2024 06/17/2014 Influenza Vaccine (#1) 2024 3, 12/24/2021, 12/15/2020, Additional history exists RSV Adult > 60+ Yrs or (1 [...] age to complete this topic Care Teams Scrum Project Manager Relationship Specialty Start Date End Date Davis Campos PA-C [address] [place] [address] PCP - General Medical Services 12/06/20
--- OUTSIDE RECORDS SUMMARY | 2024-11-22 11:35 | XMS_ITS ---
Author Name [facility] Organization Unknown History of Medication Use Medication Directions Dispensed Refills Start Date End Date Stat Butrans 7.5 mcg/hour transdermal patch Apply 1 patch every week by transdermal route. 11/09/2024 active Topamax 50 mg tablet Take 1 tablet every day by oral route at bedtime. 08/25/2024 active nortriptyline 25 mg capsule Take 1 capsule every day by oral route. 07/20/2024 active nortriptyline 10 mg capsule TAKE 1 CAPSULE BY MOUTH EVERY DAY 07/19/2024 active meloxicam 7.5 mg tablet Take 1 tablet every day by oral route. 06/25/2023 active lidocaine (PF) 100 mg/5 mL (2 %) injection syringe Take 1 mL by injection route. 03/28/2023 4 completed duloxetine 30 mg capsule,delayed release Take 1 capsule (30 mg total) by mouth daily. 10/04/2021 active pregabalin 50 mg capsule Take 1 capsule (50 mg total) by mouth 3 (three) times a day. 09/25/2021 active lamotrigine 150 mg tablet Take 150 mg by mouth 2 (two) times a day. 06/16/2021 active bupropion HCl XL 150 mg 24 hr tablet, extended release 05/10/2021 active glipizide ER 10 mg tablet, extended release 24 hr TAKE 1 TABLET BY MOUTH DAILY 4 completed celecoxib 50 mg capsule TAKE 1 CAPSULE BY MOUTH TWICE DAILY 4 completed docusate sodium 100 mg capsule TAKE ONE CAPSULE BY MOUTH TWICE A DAY 4 completed pioglitazone 15 mg tablet TAKE 1 TABLET BY MOUTH DAILY WITH DINNER 4 completed Kenalog 40 mg/mL suspension for injection active meloxicam 7.5 mg tablet active nortriptyline 25 mg capsule active Topamax 50 mg tablet active Butrans 7.5 mcg/hour transdermal patch active armodafinil 50 mg tablet TAKE 1/2 (ONE-HALF) TO 1 TABLET BY MOUTH IN THE MORNING active atorvastatin 20 mg tablet Take 20 mg by mouth daily. active atorvastatin 40 mg tablet TAKE 1 TABLET BY MOUTH DAILY active buspirone 10 mg tablet TAKE 1 TABLET BY MOUTH TWICE DAILY active buspirone 15 mg tablet TAKE 1 TABLET BY MOUTH TWICE DAILY active cholecalciferol (vitamin D3) 10 mcg (400 unit) tablet Take 400 Units by mouth daily. active erythromycin 5 mg/gram (0.5 %) eye ointment APPLY SMALL AMOUNT IN LEFT EYE THREE TIMES DAILY FOR 10 DAYS active escitalopram 5 mg tablet TAKE 1 TABLET BY MOUTH DAILY active glipizide 10 mg tablet Take 10 mg by mouth 2 (two) times a day before breakfast and dinner. active glipizide ER 10 mg tablet, extended release 24 hr TAKE 1 TABLET BY MOUTH DAILY active lamotrigine 100 mg tablet TAKE 1/2 TABLET BY MOUTH TWICE DAILY active lamotrigine 200 mg tablet TAKE 1 TABLET BY MOUTH EVERY MORNING active lamotrigine 25 mg tablet TAKE 1 TABLET BY MOUTH TWICE DAILY active lisinopril 20 mg tablet Take 20 mg by mouth daily. active lisinopril 40 mg tablet TAKE 1 TABLET BY MOUTH DAILY active lisinopril 40 mg tablet TAKE 1 TABLET BY MOUTH DAILY active lorazepam 1 mg tablet Take 1 mg by mouth every 6 (six) hours as needed. active lurasidone 20 mg tablet TAKE 1 TABLET BY MOUTH DAILY active Mounjaro 2.5 mg/0.5 mL subcutaneous pen injector ADMINISTER 2.5 MG UNDER THE SKIN EVERY 7 DAYS active Mounjaro 5 mg/0.5 mL subcutaneous pen injector ADMINISTER 5 MG UNDER THE SKIN EVERY 7 DAYS active Mounjaro 7.5 mg/0.5 mL subcutaneous pen injector ADMINISTER 7.5 MG UNDER THE SKIN EVERY 7 DAYS active Multi Vitamin active OneTouch Delica Plus Lancet 30 gauge TEST BLOOD GLUCOSE FOUR TIMES DAILY active prednisolone acetate 1 % eye drops,suspension INSTILL 1 DROP INTO LEFT EYE FOUR TIMES DAILY FOR 10 DAYS active sildenafil 100 mg tablet TAKE 1/2 TABLET BY MOUTH 30 TO 45 MINUTES BEFORE SEXUAL ACTIVITY DIRECTED active topiramate 50 mg tablet TAKE 1 TABLET BY MOUTH TWICE DAILY active trazodone 100 mg tablet 100 mg every day by oral route. active trazodone 100 mg tablet TAKE 2 TABLETS BY MOUTH EVERY NIGHT AT BEDTIME active Allergies Allergen Reaction Severity Comment Documented Date Source Statu s [facility]FORMIN [facility] Problems Problem Status Onset Date Problem Type Date of Resoluti on Source Lumbar radiculopathy active 2024-07-[address] [facility] [facility] Lumbar post-laminectomy syndrome active 2024-06-[address] [facility] Synovial cyst of lumbar spine active 2021-03-28 ProblemAct [facility] Osteoarthrosis of the carpometacarpal joint of the thumb active 2023-03-26 ProblemAct [facility] Tenosynovitis of right radial styloid active 2023-03-26 ProblemAct [facility] Medial epicondylitis of right humerus active 2023-06-25 ProblemAct [facility] Immunizations Vaccine Date Source Lot Number Status zoster vaccine subunit 06/25/2021 [facility] co mpleted SARS-COV-2 (COVID-19) vaccin e, mRNA, spike protein, LNP, preservative free, 30 mcg/0.3mL dose 01/04/2021 [facility] completed influenza, high dose seasona l, preservative-free 12/15/2020 [facility] [id number] completed influenza, high dose seasona l, preservative-free 12/07/2019 [facility] completed tetanus toxoid, reduced diph theria toxoid, and acellular pertussis vaccine, adsorbed 06/17/2014 [facility] [id number] completed zoster vaccine, live 01/19/2014 [facility] comp leted zoster vaccine, live 01/10/2009 [facility] comp leted Encounters Encounter Type Encounter Reason Primary Diagnosis Location Date Ambulatory [facility] 11/09/2024 [facility]ulatory [facility] 09/17/2024 [facility]ulatory [facility] 08[facility]25/2024 [facility] 07/06/2024 [facility]ulatory [facility] 06/04/2024 Ambulatory [facility] 04/13/2024 [facility] 04/13/2024 Ambulatory [facility] 12/06/2023 Ambulatory [facility] 09/05/2023 Ambulatory [facility] 08/01/2023 Ambulatory [facility] 06/10/2023 Ambulatory [facility] 06/03/2023 Ambulatory [facility] 04/14/2023 Ambulatory [facility] 04/09/2023 Ambulatory [facility] 03/26/2023 Ambulatory [facility] 03/26/2023 Ambulatory [facility] 03/26/2023 Ambulatory [facility] 03/26/2023 Ambulatory [facility] 03/25/2023 Ambulatory [facility] 03/25/2023 Ambulatory [facility] 03/17/2023 Care Team Organization Name Specialty Phone Email Start Date End Da olman [facility] 2024
== END 2024-11-22 11:27 | disposition home or self-care (01) ==
LOC: HO.HOP 10:35
PROVIDERS: PCP Family Medicine; Visit Provider Psychiatry & Neurology Psychiatry
DX: F98.8 Other specified behavioral and emotional disorders with onset usually occurring in childhood and adolescence (principal); F41.1 Generalized anxiety disorder; F32.4 Major depressive disorder, single episode, in partial remission
CPT/HCPCS: 99214

== ENCOUNTER → 2024-11-22 10:35 | Outpatient (BNVA) | payer MEDICARE, SELFPAY | PROVIDERS: PCP Family Medicine; Visit Provider Psychiatry & Neurology Psychiatry | DX: F98.8 Other specified behavioral and emotional disorders with onset usually occurring in childhood and adolescence (principal); F41.1 Generalized anxiety disorder; F32.4 Major depressive disorder, single episode, in partial remission; Z87.891 Personal history of nicotine dependence | CPT/HCPCS: 99212 ==

== ENCOUNTER 2025-02-08 10:34 | Outpatient (AMB) | payer MEDICARE, SELFPAY ==
--- OUTSIDE RECORDS SUMMARY | 2024-01-06 07:21 | XMS_ITS | Encounter Summary ---
Author Organization [facility] Address [address] [place] [address] Care Team Providers Care Servomechanism Designer Name Role Phone Davis Campos Primary Care Provider [phone] Encounter Details Date Type Department Care Team (Late st Contact Info) Description 01/06/2024 8:21 AM EDT Hospital Encounter TH HISTORIC ENCOUNTERS EASTERN CONVERSION ONLY Parish Chavez MD [address] [place] [address] Social History Tobacco Use Types Packs/Day Years Used Date Smoking Tobacco: Former Cigarettes Smokeless Tobacco: Never Alcohol Use Standard Drinks/Week Comments Yes 3 (1 standard drink = 0.6 oz pur e alcohol) 3 beers a night Housing Instability Answer Date Recorde d Are you worried that in the next 2 months you may not have stable housing? No 03/05/2024 Food Access & Nutrition Answer Date Rec orded Do you have access to a vari ety of food including fruits and vegetables? No 03/05/2024 Access to Healthcare Answer Date Record ed Within the last 3 months, ho w many times did you visit the emergency department for your medical care? 0 03/04/2024 Health Literacy Answer Date Recorded How often do you need to hav e someone help you when you read instructions, pamphlets, or other written material from your doctor or pharmacy? Never 03/05/2024 Caregiver: How often do you need to have someone help you when you read instructions, pamphlets, or other written material from your doctor or pharmacy? Not on file 03/05/2024 Financial Risk Answer Date Recorded How hard is it for you to pa y for the very basics like food, housing, medical care, and air conditioning / heating? Not very hard 03/05/2024 Transportation Answer Date Recorded Has the lack of transportati on kept you from meetings, work, or from getting things needed for daily living? No Has the lack of transportati on kept you from medical appointments or from getting medications? No 03/05/2024 Social Isolation Answer Date Recorded How often do you feel lonely or isolated from th ose around you? Rarely 03/05/2024 Food Risk Answer Date Recorded Within the past 12 months we worried whether our food would run out before we got money to buy more. Never true 03/05/2024 Within the past 12 months th e food we bought just didn't last and we didn't have money to get more. Never true 03/05/2024 Dependent Care Answer Date Recorded Do you need help finding or paying for care for your loved ones. For example, child support officer or elderly care for an older adult? No 03/05/2024 Education Answer Date Recorded Do you think completing more education or training, like finishing a GED, going to college, or learning a trade, would be helpful for you? No 03/05/2024 Employment and Income Answer Date Recor ded During the last four weeks, have you been actively looking for work? No 03/05/2024 Living Situation Answer Date Recorded What is your living situation? Unrecognized valu e 03/05/2024 Interpersonal Safety Answer Date Record ed Physical Abuse Unrecognized value 06/22/2024 Verbal Abuse Unrecognized value 06/22/2024 Sex and Gender Information Value Date Recorded Sex Assigned at Male 03/30/2024 12:21 PM EST Legal Sex Male 2:15 PM EST Gender Identity Male 03/30/2024 12:21 PM EST Sexual Orientation Lesbian or [place] 03/30/2024 12 :21 PM EST documented as of this encounter Last Filed Vital Signs Vital Sign Reading Time Taken Comments Blood Pressure - - Pulse - - Temperature - - Respiratory Rate - - Oxygen Saturation - - Inhaled Oxygen Concentration - - Weight 86.2 kg (190 lb) 11/02/2020 8:23 AM EDT Height 162.6 cm (5' 4 ) 11/02/2020 8:23 AM EDT Body Mass Index 32.61 11/02/2020 8:23 AM EDT documented in this encounter Procedure Notes * Parish Chavez MD - 01/06/2024 8:00 AM EDT INTERLAMINAR EPIDURAL STEROID INJECTION Parish Chavez MD Anesthesia: local Preop Diagnosis: Lumbar Radiculopathy Postop Diagnosis: same Patient presents for a lumbar epidural injection. The patient is not considered to be a candidate for surgical intervention at this point. The patient has not experienced satisfactory relief from other treatment modalities such as anti- inflammatory medications, analgesic pain medications, physical therapy, and a home exercise program. The risks, benefits and alternatives of lumbar epidural steroid injection were discussed with the patient. The patient understands that this is an invasive procedure and therefore there are inherent risks. The patient was informed of the risks of the procedure including but not limited to infection, bleeding, injury to nearby tissues, vessels, and nerves, paralysis of one or more limbs, stroke, transient headache, no decrease in pain or worsened pain, heart attack and . In rare cases, a blood patch is necessary to alleviate a headache if the dura was punctured. The steroid portion of theinjection may cause hot flashes for a few days, possible avascular necrosis of the hip, fluid retention, mood swings, and a transient rise in blood glucose. Cataracts and severe arthritis of the hipsor shoulders are a rare complication of prolonged or excessive use of steroids. No certain guarantees have been made and patient understand that responses can vary and multiple procedures may be necessary. The patient was informed that one or more of their extremities could feel heavy or weak for 6-8 hours after the procedure, and that they should have assistance with ambulation and not drive during that time. A timeout procedure was performed according to protocol after positioning and prepping the patient in the usual sterile fashion. The patient was identified, the correct side and site(s) of the procedure was confirmed, and all necessary equipment was available. Fluoroscopic Guidance was performed, and images were saved into our system. The use of direct fluoroscopic visualizations of the needle (rather than a palpation-guided procedure) was required to ensure accurate needle and injection placement, in order for diagnostic specificity when evaluating effectiveness of the injection, and for safety purposes to minimize risk of bleeding or injury to nearby neurovascular structures. The overlying skin was prepped with Duraprep The patient was identified and timeout confirmed the correct site(s) for the procedure(s). The patient was positioned. The fluoroscope was then used to produce a clear image of the lumbar spine. The appropriate interlaminar space was identified. The skin over the L5/S1 interspace was infiltrated with anesthetic. A Tuohy epidural needle was directed toward interlaminar space under fluoroscopic guidance without resistance. Fluoroscopy confirmed the position of the needle in the epidural space. Loss of resistance technique was utilized to identify entrance of the needle into the epidural space. Negative aspiration was confirmed. Good flow was visualized along the suspect lumbar spinal nerve and into the epidural space. After negative aspiration, steroid and anesthetic were injected. The L5/S1 level was injected with 1 ml of Isovue, 2 ml of 1% lidocaine without epinephrine for eachinjection, using a 20 gauge 10 cm Tuohy needle. Resistance performed using loss of air. A total of 80 mg of Methylprednisolone acetate (Depo-Medrol), 80mg was injected. Local infiltrationinto the skin was achieved with 5 ml of 1% lidocaine without epinephrine. Postcare: Patient can resume activities as tolerated. Please contact the office if you develop headache or fever, have difficulty with bowel or bladder function, or have redness or bruising at the injection site. documented in this encounter Plan of Treatment Upcoming Encounters Date Type Department Care Team (Late st Contact Info) Description 03/18/2025 7:30 AM EST Office Visit Endocrinology - [address] [phone] Dyan Torres PA [address] [place] [address] 05/31/2025 8:30 AM EST Office Visit Internal Medicine - [address] [phone] Felisa Gasca MD [address] [place], [place] documented as of this encounter Visit Diagnoses Not on filedocumented in this encounter Care Teams Servomechanism Designer Relationship Specialty Start Date End Date Davis Campos PA [address] [place] [address] PCP - General 01/06/24 01/18/24 documented as of this encounter
--- OUTSIDE RECORDS SUMMARY | 2024-01-26 08:53 | XMS_ITS | Encounter Summary ---
Author Organization [facility] Address [address] [place] [address] Care Team Providers Care Senior Ios Software Engineer Name Role Phone Batsheva Bustosmanalexus CORDERO Primary Care Provider [phone] Encounter Details Date Type Department Care Team (Late st Contact Info) Description 01/26/2024 9:53 AM EDT Hospital Encounter TH HISTORIC ENCOUNTERS EASTERN CONVERSION ONLY Parish Chavez MD [address] [place] [address] Social History Tobacco Use Types Packs/Day Years [...] care for your loved ones. For example, children's entertainer or elderly care for an older adult? [...] PM EST documented as of this encounter Plan of Treatment Upcoming Encounters Date Type Department Care Team ([facility] Contact Info) Description 03/18/2025 7:30 AM EST Office Visit [address] [place] [phone] Dyan Torres PA [address] [place] [address] 05/31/2025 8:30 AM EST Office Visit Internal Medicine - [facility] [address] [place], [place] [phone] Felisa Gasca MD [address] [place], [place] documented as of this encounter Visit Diagnoses Not on filedocumented in this encounter Care Teams Senior Ios Software Engineer Relationship Specialty Start Date End Date Caprice Bustos DO [address] [place] [address] PCP - General 01/19/24 documented as of this encounter
--- NOTE | 2025-02-08 10:56 | A.OFFPSYCH_ITS ---
Intake Intake Visit Reasons: depression Allergies gabapentin Allergy (Intermediate, Verified 10/28/23 09:11) Rash aripiprazole (From Abilify) Adverse Reaction (Intermediate, Verified 10/28/23 09:11) Agitated bupropion (From Wellbutrin SR) Adverse Reaction (Intermediate, Verified 10/28/23 09:11) Agitated HPI- Psychiatric Chief Complaint: depression HPI Narrative: Patient seems to have cycled into a good place PHQ-9 PARVEZ are not elevated. Patient's mood has been good he has had were NGT do things during today much more active and engaged with things. He did rent the additional cottage on his property to some he is to work with in doing things together at times. Patient does tend to have some guilty ruminations his partners last case with metastatic cancer did he do enough. Patient has started on med chart does feel significantly better and more active. He is on Lamictal 100 BuSpar 10 mg and trazodone at HS. Past Psychiatric History: THE PATIENT HAS A LONG HISTORY OF TREATMENT RESISTANT DEPRESSION HISTORY OF ADD CHRONIC DIFFICULTY TAKING CARE OF HIS OWN NEEDS HISTORY OF ALCOHOL ABUSE STRESSED TAKING CARE OF HIS LONG-TERM PARTNER Mental Status Exam Mental Status Exam Narrative: Mental Status Exam Narrative: Mental Status Exam Narrative: Appearance: Casually dressed Behavior: Cooperative appropriate psychomotor: Within normal limits Speech: Normal volume and prosody Thought proccess logical and goal-directed Thought content: Future oriented no self-harming thoughts focused on treatment focused on how to re-engage with life how he is feeling uplifted feels good about having someone moving in to the cottage on grounds feeling much better than he has in a long time some guilty ruminations regarding his partners Mood: Euthymic Affect: Appropriate to mood full affect SI:denies HI:denies VH/AH:none Delusions: None Insight/judgment: Good insight and judgment Memory/cog: Intact Assessment and Plan Assessment & Plan (1) Major depressive disorder in partial remission: Status: Acute Code(s): F32.4 - Major depressive disorder, single episode, in partial remission (2) Generalized anxiety disorder: Status: Acute Code(s): F41.1 - Generalized anxiety disorder (3) ADD (attention deficit disorder) without hyperactivity: Status: Acute Code(s): F98.8 - Other specified behavioral and emotional disorders with onset usually occurring in childhood and adolescence Plan Pt doing well no change indicated . Continue Lamictal encourage increase socialization patient has limited his alcohol significantly much breaux affect more engaged. Patient has [facility] He had found working with her quite helpful. Medications: Changed From buspirone 10 mg PO BID 3 months 180 tabs 2RF To buspirone 10 mg PO DAILY 90 tabs 1RF 3 months Counseling and coordination of Care Details-Self Mgmt counseling: Issues related to how to sustain the change in mood managing chronic pain reengaging with the things he loves Medication management counseling: Effectiveness, Side effects and Dosing range Diagnosis and Prognosis Counseling: Impact of diagnosis on life functions, Problematic behaviors secondary to diagnosis and Adequacy of current interventions Details: I spent [38] minutes reviewing the record, seeing the patient and documenting in the medical record. Counseling provided to the patient/caregiver as outlined below. Addressed patient/caregiver concerns regarding current medication regime including effective adherence. Addressed patient/caregiver concerns regarding diagnosis and prognosis including accuracy of diagnosis, prognosis over time, impact of diagnosis. Addressed patient/caregiver concerns regarding impact of recent stressors. 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 Generalized anxiety disorder Depression, major, severe recurrence Controlled diabetes mellitus type II without complication Hypertension Surgical History Hx of spinal surgery H/O colonoscopy History of surgery S/P placement of nerve stimulator Social History Are you a primary health care manager to a significant other at home: No Do you presently have visiting nurse or other home services: No Alcohol intake: current Alcohol intake frequency: 3 or more drinks per day Alcohol type: beer Patient Tobacco Use Status: Former Tobacco user Tobacco use type: Cigarette Years Smoked: 2.5 Social History: Pts parents are used work at [employer] nature identifies as dye no children 1 brother in [place] Substance History: History of alcoholism denies on I'History of alcoholism denies ongoing drinking Coding Level of Care Code Est Pt Level 3 (44482) Tele Therapy 30m w/E&M (23787) Diagnoses Major depressive disorder in partial remission F32.4 Generalized anxiety disorder F41.1 ADD (attention deficit disorder) without hyperactivity F98.8
--- OUTSIDE RECORDS SUMMARY | 2025-02-08 12:25 | XMS_ITS | Clinical Summary ---
Author Organization [facility] Address [address] [place] [address] Care Team Providers Care Stock Shaper Name Role Phone Davis Campos PA-C Primary [...] Immunizations Name Administration Dates Next Due Covid-19 ([place]) Dilution Required 01/04/2021 Influenza Trivalent (Fluzone High [...] Screening (Colonoscopy) 1999 Fall Risk Assessment 2019 DTap / Tdap / Td (2 - Td or Tdap) 06/17/2024 06/17/2014 COVID-19 Vaccine ( season) 2024 12/24/2022, 07/08/2021, 01/04/2021, Additional history exists Influenza Vaccine (#1) 2024 , 12/24/2021, 12/15/2020, Additional history exists RSV Adult [...] age to complete this topic Care Teams Stock Shaper Relationship Specialty Start Date End Date Davis Campos PA-C [address] [place] [address] PCP - General Medical Services 12/06/20
--- OUTSIDE RECORDS SUMMARY | 2025-02-08 12:25 | XMS_ITS | Encounter Summary ---
Author Organization [facility] Address [address] [place] [address] Care Team Providers Care Spotlight Operator Name Role Phone Caprice Bustos DO Primary Care Provider [phone] Encounter Details Date Type Department Care Team (Late st Contact Info) Description 01/20/2025 Results Follow-Up Endocrinology - [place] [address] [place] [address] Dyan Torres PA [address] [place] [address] Social History Tobacco Use Types Packs/Day Years [...] do you feel lonely or isolated from ose around you? Rarely 03/05/2024 Food Risk [...] your loved ones. For example, early childhood education specialist or elderly care for an older [...] 7:30 AM EST Office Visit Endocrinology - [place] [address] [place] [address] Dyan Torres PA [address] [place] [address] 05/31/2025 8:30 AM EST Office Visit Internal Medicine - [address] [phone] Felisa Gasca MD [address] [place], [place] documented as of this encounter Visit Diagnoses Not on filedocumented in this encounter Additional Health Concerns Assessment Noted Time PHQ-9 Depression Total Score: 1 02/27/20 24 11:45 AM EST documented as of this encounter Care Teams Spotlight Operator Relationship Specialty Start Date End Date Caprice Bustos DO [address] [place] [id number] PCP - General 01/19/24 documented as of this encounter
--- OUTSIDE RECORDS SUMMARY | 2025-02-08 12:25 | XMS_ITS | Data Portability ---
Author Organization [facility] Financial Transaction Services [facility], [id number] Address [address] [facility] [address] [place] [address] Care Team Providers Care [employer] Crewmember Name Role Phone YAZMIN COULTER Referring Provider [phone] Assessment Encounter Date Assessment Date Assessment LastModified by Organization Details LastModified Time 09/21/2024 09/21/2024 -patient with continuing bilateral buttock pain with radiation into b/l LE along the posterior aspect into b/l ankles that mostly occurs at night; his symptoms and MRI imaging results are c/w lumbar spinal stenosis -will increase topamax 50mg QD-->BID, and will continue to increase as tolerated if there is a benefit to his radicular pain -10 minutes was used for chart review, interviewing/e xamining, and counseling the patient during today's visit, and patient denies having any other further questions/conc erns -f/up in 1 month [email or web address] Not available 09/21/2024 11:47:35 10/05/2024 10/05/2024 -patient with continuing bilateral buttock pain with radiation into b/l LE along the posterior aspect into b/l ankles that mostly occurs at night; his symptoms and MRI imaging results are c/w lumbar spinal stenosis -will continue topamax 50mg BID, and will continue to increase as necessary, he does report having some lightheadednes s/dizziness but is attributing this to another cause as he was having these symptoms prior to starting the topamax -10 minutes was used for chart review, interviewing/e xamining, and counseling the patient during today's visit, and patient denies having any other further questions/conc erns -f/up in 1 month [email or web address] Not available 10/05/2024 11:20:12 11/09/2024 11/09/2024 -patient with continuing bilateral buttock pain with radiation into b/l LE along the posterior aspect into b/l ankles that mostly occurs at night; his symptoms and MRI imaging results are c/w lumbar spinal stenosis -will start butrans 7.5mcg/hr patch weekly -14 minutes was used for chart review, interviewing/e xamining, and counseling the patient during today's visit, and patient denies having any other further questions/conc erns -f/up in 1 month [email or web address] Not available 11/09/2024 13:33:58 01/07/2025 01/07/2025 69-year-old with hip and bilateral leg pain. Patient is scheduled to see a new provider. Harry stop his Butrans. [email or web address] Not available 01/07/2025 08:35:39 Plan of Treatment Reminders Order Date Submit Date Provider Last Modified By Organization Details Last Modified Time Details Appointments None recorded. Lab None recorded. Referral None recorded. Procedures None recorded. Surgeries None recorded. Imaging None recorded. Medication Orders Butrans 7.5 mcg/hour transdermal patch 2024 025 [id number] [address] [facility] [place], [place], [id number], 08:34:33 Topamax 50 mg tablet 2024 025 [facility][id number], [address] [facility] [place], [id number], 5 08:18:22 [facility] 50 mg tablet [facility] [address] [place] [address] [facility] [address][id number], [address] [place], [place], [id number], 08:17:42 Patient TargetsNo targets recorded. Patient Instructions Encounter Date Encounter Id Patient Instructions Last Modified By Organization Details Last Modified Time 12/02/2024 [id number] low back pain: exercises [id number] Not available 12/02/2024 08:49:15 69-year-old with low back pain radiating into both legs to the ankles. He also has bilateral hip pain. The pain is especially bad on the left and he lays on that side to sleep. We discussed treatment options and we will increase his Butrans to 10 micrograms/hr. He will try good Rx for a lower armstrong. We may need to order bilateral hip x-rays as well. I spent 46 minutes reviewing the record and interviewing and examining the patient. [email or web address] Not available 12/02/2024 08:49:14 Reason for Referral None Reported. Problems Name Problem SNOMED Code Status Onset Date Resolution Date Notes Provider Name and Address Organization Details Recorded Time Synovial cyst of lumbar spine 527238517 Active 2020 Synovial cyst of lumbar facet joint; [id number] iption: Synovial cyst of lumbar facet joint; [id number] ription: Synovial cyst of lumbar facet joint; Not Available [facility] 09:23:20 Lumbar post-sanjay ectomy syndrome 431241003 Active 2024 Parish Chavez MD null, [facility] 5 08:14:57 Lumbar radiculopa thy 893354803 Active 2024 Parish Chavez MD [facility], [facility] 5 13:08:33 Problem Notes None recorded. Medical Equipment None Reported. Allergies Allergen ID Allergen Name Allergen Category Reaction Reaction Severity Criticality Documentation Date Start Date Code Code System Note Provider Name and Address Organization Details Recorded Time 75937 metformin medicatio n Not available Not available Not available 05/18/20242019 6809 RxNorm Comme nt: dfnam e: Marleny; dlnam e: Ivanna randal; ; Not Available [facility] 15:59:51 Medications Name Sig Start Date Stop Date Status Note LastModified by Organization Details LastModified Time atorvasta tin 40 mg tablet TAKE 1 TABLET BY MOUTH DAILY active Not Available Not Available No t Available lamotrigi ne 150 mg tablet Take 150 mg by mouth 2 (two) times a day. 12/02 completed NPI: [id number]; Not Available Not Available Not Available atorvasta tin 20 mg tablet Take 20 mg by mouth daily. 12/02 completed NPI: [id number]; Not Available Not Available Not Available lamotrigi ne 200 mg tablet TAKE 1 TABLET BY MOUTH EVERY MORNING 12/02 completed Not Available Not Available Not Available glipizide ER 10 mg tablet, extended release 24 hr TAKE 1 TABLET BY MOUTH DAILY active Not Available Not Available No t Available lisinopri l 20 mg tablet Take 20 mg by mouth daily. active Not Available Not Available No t Available glipizide 10 mg tablet Take 10 mg by mouth 2 (two) times a day before breakfas t and dinner. active NPI: [id number]; Not Available Not Available Not Available lamotrigi ne 25 mg tablet TAKE 1 TABLET BY MOUTH TWICE DAILY 12/02 completed Not Available Not Available Not Available nortripty line 25 mg capsule Take 1 capsule every day by oral route. 12/02 completed Not Available Not Available Not Available prednisol one acetate 1 % eye drops,[place] pension INSTILL 1 DROP INTO LEFT EYE FOUR TIMES DAILY FOR 10 DAYS active Not Available Not Available No t Available trazodone 100 mg tablet TAKE 2 TABLETS BY MOUTH AT BEDTIME FOR 3 MONTHS active Not Available Not Available No t Available OneTouch Ultra Test strips USE TO TEST BLOOD GLUCOSE FOUR TIMES DAILY active Not Available Not Available No t Available erythromy zeus 5 mg/gram (0.5 %) eye ointment APPLY SMALL AMOUNT IN LEFT EYE THREE TIMES DAILY FOR 10 DAYS active Not Available Not Available No t Available nortripty line 10 mg capsule TAKE 1 CAPSULE BY MOUTH EVERY DAY 01/07 completed Not Available Not Available Not Available buspirone 10 mg tablet TAKE 1 TABLET BY MOUTH TWICE DAILY 12/02 completed Not Available Not Available Not Available lorazepam 1 mg tablet Take 1 mg by mouth every 6 (six) hours as needed. active NPI: [id number]; Not Available Not Available Not Available lisinopri l 40 mg tablet TAKE 1 TABLET BY MOUTH DAILY 12/02 completed Not Available Not Available Not Available cholecalc iferol (vitamin D3) 10 mcg (400 unit) tablet Take 400 Units by mouth daily. active NPI: [id number]; Not Available Not Available Not Available lamotrigi ne 100 mg tablet TAKE 1/2 TABLET BY MOUTH TWICE DAILY active Not Available Not Available No t Available buspirone 15 mg tablet TAKE 1 TABLET BY MOUTH TWICE DAILY 01/07 completed Not Available Not Available Not Available bupropion HCl XL 150 mg 24 hr tablet, extended release 12/02 completed NPI: [id number]; Not Available Not Available Not Available escitalop anai 5 mg tablet TAKE 1 TABLET BY MOUTH DAILY active Not Available Not Available No t Available topiramat e 50 mg tablet TAKE 1 TABLET BY MOUTH TWICE DAILY 12/02 completed Not Available Not Available Not Available duloxetin e 30 mg capsule,d elayed release Take 1 capsule (30 mg total) by mouth daily. 2021 active NPI: [id number]; Not Available Not Available Not Available pregabali n 50 mg capsule Take 1 capsule (50 mg total) by mouth 3 (three) times a day. 12/02 completed dfname: Parish; dminit: Aiden; dlname: Scott; Physicia n_Addr1: [address] [place] [address]; Physicia n_Addr2: [facility]; Physicia n_City: [place] ; Physicia n_State: [place]; Physicia n_Postal Code: [id number]; NPI: [id number]; Physicia n_Suffix : ; Camillaia n_Phone: tel:[phone]; Physicia n_Fax: fax:[phone]; Physicia n_Specia lty: Anesthes iology; Not Available Not Available Not Available armodafin il 50 mg tablet TAKE 1/2 (ONE-YOLANDA F) TO 1 TABLET BY MOUTH IN THE MORNING 12/02 completed Not Available Not Available Not Available buprenorp harmony 10 mcg/hour weekly transderm al patch Apply 1 patch by transder mal route for 7 days. 12/16 completed Not Available Not Available Not Available buprenorp harmony 7.5 mcg/hour weekly transderm al patch APPLY 1 PATCH TOPICALL Y TO THE SKIN EVERY WEEK 12/02 completed Not Available Not Available Not Available OneTouch Ultra2 Meter TAKE DIRECTED TO MONITOR BLOOD SUGAR LEVEL active Not Available Not Available No t Available OneTouch Delica Plus Lancet 30 gauge TEST BLOOD GLUCOSE FOUR TIMES DAILY active Not Available Not Available No t Available Mounjaro 7.5 mg/0.5 mL subcutane ous pen injector ADMINIST ER 7.5 MG UNDER THE SKIN EVERY 7 DAYS active Not Available Not Available No t Available Mounjaro 5 mg/0.5 mL subcutane ous pen injector ADMINIST ER 5 MG UNDER THE SKIN EVERY 7 DAYS 12/02 completed Not Available Not Available Not Available Mounjaro 2.5 mg/0.5 mL subcutane ous pen injector ADMINIST ER 2.5 MG UNDER THE SKIN EVERY 7 DAYS 12/02 completed Not Available Not Available Not Available Vitals Date Recorded Respiratory rate Provider Name a nd Address Organization Details Last Updated DateTime 12/02/2024 16 /min Jake Welch MD [facility] 12/02/2024 08:33:31 Date Recorded Body height Body mass index (BMI) Body weight Heart rate Oxygen saturation Oxygen saturation in Arterial blood by Pulse oximetry Systolic And Diastolic Provider Name and Address Organization Details Last Updated DateTime 5 160.02 cm 28.9 kg/m2 27270.5 6 g 85 /min 97 % 97 % 120/80 mm[Hg] Eveline Colon [facility] 5 08:05:24 Social History None recorded. Functional Status Question Answer Note LastModified by Organizat ion Details LastModified Time What is your level of alcohol consumption? Occasional [email or web address] Information not available 06/15/2024 Mental Status None recorded. Family History Nothing Reported. Medical History Condition Response Diabetes Y Hypertension Y Immunizations Vaccine Type Date Status Note Provider Nam e and Address Organization Details Recorded Time COVID-19, mRNA, LNP-S, PF, 30 mcg/0.3 mL dose 1 completed Not Available [facility] 05/18/2024 14:46:34 Influenza, high-dose, trivalent, PF 1 completed Not Available [facility] 05/18/2024 14:46:34 Influenza, high-dose, trivalent, PF 0 completed Not Available [facility] 05/18/2024 14:46:34 zoster recombinant 2 completed Not Available [facility] 05/18/2024 14:46:35 Tdap 5 completed Not Available [facility] 05/18/2024 14:46:35 zoster live 4 completed Not Available [facility] 05/18/2024 14:46:35 zoster live 9 completed Not Available [facility] 05/18/2024 14:46:35 Past Encounters Encounter ID Performer Location Encounter Start Date Encounter Closed Date Diagnosis/Indication Diagnosis SNOMED-CT Code Diagnosis ICD10 Code Diagnosis IMO Codes Diagnosis Note [id number] Parish Chavez MD [id number] [facility] [address] [place] [address] 07/20/2024 07:15:31 07/20/2024 14:12:15 Lumbar radiculopathy 736241290 M54.16 Lumbar post-laminectomy syndrome 562237721 M96.1 [id number] Parish Chavez MD [id number] [facility] [address] [place] [address] 08/25/2024 07:51:26 08/25/2024 08:08:22 Lumbar radiculopathy 467756558 M54.16 Lumbar post-laminectomy syndrome 854510546 M96.1 [id number] Parish Chavez MD [id number] [facility] [address] [facility] [place] [address] 09/21/2024 07:40:43 09/21/2024 11:51:00 Lumbar radiculopathy 074570115 M54.16 Lumbar post-laminectomy syndrome 379941294 M96.1 [id number] Parish Chavez MD [id number] [facility]_[place] [address] [place] [address] 10/05/2024 07:06:28 10/05/2024 11:57:17 Lumbar radiculopathy 926816052 M54.16 Lumbar post-laminectomy syndrome 575164957 M96.1 [id number] Parish Chavez MD [id number] [facility] [address] [facility] [address] [place] [address] 11/09/2024 07:08:00 11/09/2024 13:51:26 Lumbar post-laminectomy syndrome 526823924 M96.1 [id number] MD BIGG Renteria017_WA [facility] [address] [facility] [address] [place] [address] 12/02/2024 07:59:13 12/02/2024 08:50:12 Lumbar radiculopathy 427202126 M54.16 [id number] Lumbar post-laminectomy syndrome 666736109 M96.1 [id number] Jake Welch MD [id number] A_[facility] [address] [place] [address] 01/07/2025 07:03:41 01/07/2025 08:43:44 Lumbar post-laminectomy syndrome 887003251 M96.1 1742 Health Concerns Section Related Observation LastModified by Organization Detai ls LastModified Time None Recorded Concern Status LastModified by Organization Details LastModified Time None Recorded Advance Directives Directive None Recorded Payers Insurance Date Sequence Insurance Name Policy Number Policy Sanchez Covered Member ID Sanchez Member ID Guarantor Name 01/06/2025 1 [employer] (MEDICARE REPLACEMENT/A DVANTAGE - PPO) [id number] Sandy Garcia [id number] Sandy Garcia Notes Date Note Type Note Provider Name and Address Organization Details Recorded Time 09/21/2024 text/html ROS as noted in the HPI Sandy Garcia is a pleasant 69 y.o. year old male, who has a past medical history of Hypertension. and DM (not on insulin) who presents with moderate-severe low back pain with radiation into his legs (L>R). Of note, patient underwent L4-5 laminectomy and facet cyst resection at L4 with Dr. Barclay on 03/2021. Is also s/p SCS implant and subsequent removal after the laminectomy.The patient is retired. Current pain medications: OTC NSAID's Previous Medications and doses tried/effect: gabapentin 300mg TID--no benefitnortriptyline-- drowsy, libido side effectscymbalta--could n't toleratelyrica--drowsy Previous Nerve Block or Injection: left L4 TFESI (09/2020)--70% relief for 2-3 days (outside MD)L4/5 interlaminar JOSE LUIS (12/2020)--80% relief for ~3 months, pain came back after surgery unfortunatelySCS trial (01/21/22)--85% improvement with his pain levelsSCS paddle implant (03/29/22), and subsequent removalCaudal JOSE LUIS (01/2023): outside MD--minimal benefitBilateral SIJ injection (08/2023): outside MD--minimal benefitL5/S1 interlaminar JOSE LUIS (01/2024): 80% relief, but only last for ~2 weeksL5/S1 interlaminar JOSE LUIS (04/2024): 80% relief, but only lasted for ~2 weeks I personally reviewed prior radiological services. I also obtained relevant old records and reviewed lab data.Imaging Studies: MRI lumbar spine (05/25/2020): Facet arthrosis and ligamentous laxity contributing to mild central canal stenosis, bilateral lateral recess stenosis and left greater than right neuroforaminal narrowing at L4-5. Impact on the exiting L4 nerve root is not complete extruded no correlation with radiculopathy is recommended.EMG (09/2020): per patient, was normalMRI lumbar spine (01/2023): T12-L1: No foraminal or spinal canal stenosis.L1-2: No foraminal or spinal canal stenosis.L2-3: neuroforaminal or spinal canal stenosis.L3-4: Diffuse disc bulge and bilateral facet arthropathy with ligamentum flavum thickening. Mild spinal canal stenosis. Mild foraminal stenosis bilaterally.L4-5: Bilateral facet arthropathy with prior laminectomy. Diffuse disc bulge. Moderate spinal stenosis remaining. Moderate foraminal stenosis bilaterally.L5-S1: Bilateral facet arthropathy. No foraminal or spinal canal stenosis. 12/24/23: Patient seen/examined in the office. Since his last office visit he has subsequently undergone removal of his spinal cord stimulator because it was not helping with his pain. He does state that the pain that he has is in his bilateral buttock and radiates down the posterior aspect of bilateral lower extremities to the level of the ankle. He describes the pain as squeezing, and a tightness sensation. He states that the pain is worse with prolonged sitting. He also reports that the pain is worse with very prolonged walking. He continues to walk at least 4 miles a day, however notices that around the miles 5 and 6 that he starts getting this pain. He denies any numbness or tingling in his lower extremities. No weakness in his lower extremities. No bowel or bladder incontinence. No saddle anesthesia. He has also subsequently undergone a caudal JOSE LUIS and bilateral SI joint injections without much improvement in his pain symptoms. 07/20/24: Spoke with patient over telephone. He states that he does notice an improvement in his pain on the nortriptyline 10 mg nightly. He denies any side effects associated with his medication regimen currently. He does report that initially when he started the medication that it was causing him a little bit of drowsiness in the morning. He has also started to use some compression bands for his legs at night that he finds to be rather helpful for him. He reports that his pain is currently a 3 out of 10. 08/25/24: Spoke with patient over telephone. He states that he had tried the nortriptyline 20mg QHS, however found that it made him drowsy during the daytime. He was also noticing that it causes him libido issues, so he had stopped taking the medication a couple of weeks ago. He finds that he is still able to be very active during the day, however at night is when he has a lot of pain in his legs bilaterally. This is a medically necessary visit as the patient would typically be seen in the office, however, due to the COVID-19 pandemic, the patient verbally agreed to a virtual phone visit in place of a physical appointment. The patient was informed that provider would take precautions to ensure privacy of PHI as much as possible. The patient was informed that they can opt out or refuse services at anytime. Visit included:- substantial medical advice- revising treatment plan- prescribing/revising medications, if prescribed.- providing self-care/patient education information for new and/or chronic health problem 09/21/24: Spoke with patient over telephone. He reports having taken the Topamax for approximately 1 month now. He does not notice any big benefit to his pain levels. He reports that over the past couple weeks his pain has actually been getting worse. He has dropped the pain as going down to his legs on both sides. He does find that activity somehow makes the pain better. He denies any side effects associated with the Topamax. Parish Chavez MD null, [place] - [facility] 09/21/2024 11:47:57 10/05/2024 text/html ROS as noted in the HPI Sandy Garcia is a pleasant 69 y.o. year old male, who has a past medical history of Hypertension. and DM (not on insulin) who presents with moderate-severe low back pain with radiation into his legs (L>R). Of note, patient underwent L4-5 laminectomy and facet cyst resection at L4 with Dr. Barclay on 03/2021. Is also s/p SCS implant and subsequent removal after the laminectomy.The patient is retired. Current pain medications: OTC NSAID's Previous Medications and doses tried/effect: gabapentin 300mg TID--no benefitnortriptyline-- drowsy, libido side effectscymbalta--could n't toleratelyrica--drowsy Previous Nerve Block or Injection: left L4 TFESI (09/2020)--70% relief for 2-3 days (outside MD)L4/5 interlaminar JOSE LUIS (12/2020)--80% relief for ~3 months, pain came back after surgery unfortunatelySCS trial (01/21/22)--85% improvement with his pain levelsSCS paddle implant (03/29/22), and subsequent removalCaudal JOSE LUIS (01/2023): outside MD--minimal benefitBilateral SIJ injection (08/2023): outside MD--minimal benefitL5/S1 interlaminar JOSE LUIS (01/2024): 80% relief, but only last for ~2 weeksL5/S1 interlaminar JOSE LUIS (04/2024): 80% relief, but only lasted for ~2 weeks I personally reviewed prior radiological services. I also obtained relevant old records and reviewed lab data.Imaging Studies: MRI lumbar spine (05/25/2020): Facet arthrosis and ligamentous laxity contributing to mild central canal stenosis, bilateral lateral recess stenosis and left greater than right neuroforaminal narrowing at L4-5. Impact on the exiting L4 nerve root is not complete extruded no correlation with radiculopathy is recommended.EMG (09/2020): per patient, was normalMRI lumbar spine (01/2023): T12-L1: No foraminal or spinal canal stenosis.L1-2: No foraminal or spinal canal stenosis.L2-3: neuroforaminal or spinal canal stenosis.L3-4: Diffuse disc bulge and bilateral facet arthropathy with ligamentum flavum thickening. Mild spinal canal stenosis. Mild foraminal stenosis bilaterally.L4-5: Bilateral facet arthropathy with prior laminectomy. Diffuse disc bulge. Moderate spinal stenosis remaining. Moderate foraminal stenosis bilaterally.L5-S1: Bilateral facet arthropathy. No foraminal or spinal canal stenosis. 12/24/23: Patient seen/examined in the office. Since his last office visit he has subsequently undergone removal of his spinal cord stimulator because it was not helping with his pain. He does state that the pain that he has is in his bilateral buttock and radiates down the posterior aspect of bilateral lower extremities to the level of the ankle. He describes the pain as squeezing, and a tightness sensation. He states that the pain is worse with prolonged sitting. He also reports that the pain is worse with very prolonged walking. He continues to walk at least 4 miles a day, however notices that around the miles 5 and 6 that he starts getting this pain. He denies any numbness or tingling in his lower extremities. No weakness in his lower extremities. No bowel or bladder incontinence. No saddle anesthesia. He has also subsequently undergone a caudal JOSE LUIS and bilateral SI joint injections without much improvement in his pain symptoms. 07/20/24: Spoke with patient over telephone. He states that he does notice an improvement in his pain on the nortriptyline 10 mg nightly. He denies any side effects associated with his medication regimen currently. He does report that initially when he started the medication that it was causing him a little bit of drowsiness in the morning. He has also started to use some compression bands for his legs at night that he finds to be rather helpful for him. He reports that his pain is currently a 3 out of 10. 08/25/24: Spoke with patient over telephone. He states that he had tried the nortriptyline 20mg QHS, however found that it made him drowsy during the daytime. He was also noticing that it causes him libido issues, so he had stopped taking the medication a couple of weeks ago. He finds that he is still able to be very active during the day, however at night is when he has a lot of pain in his legs bilaterally. 09/21/24: Spoke with patient over telephone. He reports having taken the Topamax for approximately 1 month now. He does not notice any big benefit to his pain levels. He reports that over the past couple weeks his pain has actually been getting worse. He has dropped the pain as going down to his legs on both sides. He does find that activity somehow makes the pain better. He denies any side effects associated with the Topamax. This is a medically necessary visit as the patient would typically be seen in the office, however, due to the COVID-19 pandemic, the patient verbally agreed to a virtual phone visit in place of a physical appointment. The patient was informed that provider would take precautions to ensure privacy of PHI as much as possible. The patient was informed that they can opt out or refuse services at anytime. Visit included:- substantial medical advice- revising treatment plan- prescribing/revising medications, if prescribed.- providing self-care/patient education information for new and/or chronic health problem 10/05/24: Spoke with patient over telephone. He states that he does find the pain in his legs is better, and that with the pain he feels at night that that has improved as well. He does report having some lightheadedness/dizzin ess, but doesn't know if it's becuase of the topamax, because he felt that he was having those symptoms even before starting the topamax. He also had some other changes to his medication regimen recently and will be following up with his oceanology teacher/PCP to see if there could be other potential causes of his symptoms. He denies any other issues with his medication regimen. Parish Chavez MD [facility], [place] - Counts Include [address] B[facility] At [facility] 10/05/2024 11:20:49 11/09/2024 text/html ROS as noted in the HPI Sandy Garcia is a pleasant 69 y.o. year old male, who has a past medical history of Hypertension. and DM (not on insulin) who presents with moderate-severe low back pain with radiation into his legs (L>R). Of note, patient underwent L4-5 laminectomy and facet cyst resection at L4 with Dr. Barclay on 03/2021. Is also s/p SCS implant and subsequent removal after the laminectomy.The patient is retired. Current pain medications: OTC NSAID's Previous Medications and doses tried/effect: gabapentin 300mg TID--no benefitnortriptyline-- drowsy, libido side effectscymbalta--could n't toleratelyrica--drowsy topamax--not helpfulPrevious Nerve Block or Injection: left L4 TFESI (09/2020)--70% relief for 2-3 days (outside MD)L4/5 interlaminar JOSE LUIS (12/2020)--80% relief for ~3 months, pain came back after surgery unfortunatelySCS trial (01/21/22)--85% improvement with his pain levelsSCS paddle implant (03/29/22), and subsequent removalCaudal JOSE LUIS (01/2023): outside MD--minimal benefitBilateral SIJ injection (08/2023): outside MD--minimal benefitL5/S1 interlaminar JOSE LUIS (01/2024): 80% relief, but only last for ~2 weeksL5/S1 interlaminar JOSE LUIS (04/2024): 80% relief, but only lasted for ~2 weeks I personally reviewed prior radiological services. I also obtained relevant old records and reviewed lab data.Imaging Studies: MRI lumbar spine (05/25/2020): Facet arthrosis and ligamentous laxity contributing to mild central canal stenosis, bilateral lateral recess stenosis and left greater than right neuroforaminal narrowing at L4-5. Impact on the exiting L4 nerve root is not complete extruded no correlation with radiculopathy is recommended.EMG (09/2020): per patient, was normalMRI lumbar spine (01/2023): T12-L1: No foraminal or spinal canal stenosis.L1-2: No foraminal or spinal canal stenosis.L2-3: neuroforaminal or spinal canal stenosis.L3-4: Diffuse disc bulge and bilateral facet arthropathy with ligamentum flavum thickening. Mild spinal canal stenosis. Mild foraminal stenosis bilaterally.L4-5: Bilateral facet arthropathy with prior laminectomy. Diffuse disc bulge. Moderate spinal stenosis remaining. Moderate foraminal stenosis bilaterally.L5-S1: Bilateral facet arthropathy. No foraminal or spinal canal stenosis. 12/24/23: Patient seen/examined in the office. Since his last office visit he has subsequently undergone removal of his spinal cord stimulator because it was not helping with his pain. He does state that the pain that he has is in his bilateral buttock and radiates down the posterior aspect of bilateral lower extremities to the level of the ankle. He describes the pain as squeezing, and a tightness sensation. He states that the pain is worse with prolonged sitting. He also reports that the pain is worse with very prolonged walking. He continues to walk at least 4 miles a day, however notices that around the miles 5 and 6 that he starts getting this pain. He denies any numbness or tingling in his lower extremities. No weakness in his lower extremities. No bowel or bladder incontinence. No saddle anesthesia. He has also subsequently undergone a caudal JOSE LUIS and bilateral SI joint injections without much improvement in his pain symptoms. 07/20/24: Spoke with patient over telephone. He states that he does notice an improvement in his pain on the nortriptyline 10 mg nightly. He denies any side effects associated with his medication regimen currently. He does report that initially when he started the medication that it was causing him a little bit of drowsiness in the morning. He has also started to use some compression bands for his legs at night that he finds to be rather helpful for him. He reports that his pain is currently a 3 out of 10. 08/25/24: Spoke with patient over telephone. He states that he had tried the nortriptyline 20mg QHS, however found that it made him drowsy during the daytime. He was also noticing that it causes him libido issues, so he had stopped taking the medication a couple of weeks ago. He finds that he is still able to be very active during the day, however at night is when he has a lot of pain in his legs bilaterally. 09/21/24: Spoke with patient over telephone. He reports having taken the Topamax for approximately 1 month now. He does not notice any big benefit to his pain levels. He reports that over the past couple weeks his pain has actually been getting worse. He has dropped the pain as going down to his legs on both sides. He does find that activity somehow makes the pain better. He denies any side effects associated with the Topamax. 10/05/24: Spoke with patient over telephone. He states that he does find the pain in his legs is better, and that with the pain he feels at night that that has improved as well. He does report having some lightheadedness/dizzin ess, but doesn't know if it's becuase of the topamax, because he felt that he was having those symptoms even before starting the topamax. He also had some other changes to his medication regimen recently and will be following up with his oceanology teacher/PCP to see if there could be other potential causes of his symptoms. He denies any other issues with his medication regimen. This is a medically necessary visit as the patient would typically be seen in the office, however, due to the COVID-19 pandemic, the patient verbally agreed to a virtual phone visit in place of a physical appointment. The patient was informed that provider would take precautions to ensure privacy of PHI as much as possible. The patient was informed that they can opt out or refuse services at anytime. Visit included:- substantial medical advice- revising treatment plan- prescribing/revising medications, if prescribed.- providing self-care/patient education information for new and/or chronic health problem 11/09/24: Spoke with patient over telephone. He states that he doesn't really notice much of a difference in his pain levels with the topamax. Still reporting a significant amount of pain in his b/l calves, especially at night. Discussed about starting buprenorphine to help with his pain. Parish Chavez MD [facility], [place] - [facility] 11/09/2024 13:34:02 12/02/2024 text/html ROS as noted in the HPI Patient comes in today with a chief complaint of low back pain radiating down both legs to the ankles throughout both entire legs. Patient was being seen by Dr. Chavez who no longer does pain management. The patient was placed on 7.5 mcg/h transdermal patch for buprenorphine. He says medication is too expensive costing $100 a month is not covered by insurance. He did get some pain relief with the medication he believes. He has stopped taking his nortriptyline. The patient walked 7 miles yesterday with no pain. He has most of his pains at night. He also has hip pain. Of note, patient underwent L4-5 laminectomy and facet cyst resection at L4 with Dr. Barclay on 03/2021. Is also s/p SCS implant and subsequent removal after the laminectomy.The patient is retired.Previous Medications and doses tried/effect: gabapentin 300mg TID--no benefitnortriptyline-- drowsy, libido side effectscymbalta--could n't toleratelyrica--drowsy topamax--not helpful Previous Nerve Block or Injection: left L4 TFESI (09/2020)--70% relief for 2-3 days (outside MD)L4/5 interlaminar JOSE LUIS (12/2020)--80% relief for ~3 months, pain came back after surgery unfortunatelySCS trial (01/21/22)--85% improvement with his pain levelsSCS paddle implant (03/29/22), and subsequent removalCaudal JOSE LUIS (01/2023): outside MD--minimal benefitBilateral SIJ injection (08/2023): outside MD--minimal benefitL5/S1 interlaminar JOSE LUIS (01/2024): 80% relief, but only last for ~2 weeksL5/S1 interlaminar JOSE LUIS (04/2024): 80% relief, but only lasted for ~2 weeks Jake Welch MD [facility], [place] - [facility] 12/02/2024 08:49:53 01/07/2025 text/html ROS as noted in the HPI This is a medically necessary visit. The patient would typically be seen in the office. The patient verbally agreed to a virtual phone visit in place of a physical appointment. The patient was informed that provider would take precautions to ensure privacy of PHI as much as possible. The patient was informed that they can opt out or refuse services at anytime. A total of 29 minutes was spent reviewing the record and on the phone with the patient. Visit included: - substantial medical advice- revising treatment plan- prescribing/revising medications, if prescribed.- providing self-care/patient education information for new and/or chronic health problem. I spoke with the patient on the phone. He continues to have hip pain radiating to both legs. He is on 10 mcg/h of Butrans. He says he still has severe pain. He stopped the medication because he did not think it was helping. Jake Welch MD [facility] 01/07/2025 08:36:00
--- OUTSIDE RECORDS SUMMARY | 2025-02-08 12:26 | XMS_ITS | Clinical Summary ---
Author Organization [address] Address [address] [place] [address] Phone Care Team Providers Care Amortization Schedule Clerk Name Role Phone Caprice Bustos DO Primary Care Provider [phone] Allergies Active Allergy Reactions Criticality Noted Date [...] Lactobacillus acidophilus (Probiotic) 10 billion cell capsule Take 1 capsule by mouth 1 (one) time each day. Active lancets (OneTouch Delica Plus Lancet) 30 gauge TEST WITH FOUR TIMES DAILY 400 each 03/30/20 24 Active lamoTRIgine (LaMICtal) 100 mg tablet Take 1 tablet (100 mg total) by mouth 1 (one) time each day. Active GENERIC EXTERNAL MEDICATION Promiseb gel Active busPIRone (BUSPAR) 10 mg tablet Take 1 tablet (10 mg total) by mouth 1 (one) time each day. 04/12/19 Active tirzepatide (Mounjaro) 7.5 mg/0.5 mL injectionIndica tions:Type 2 diabetes mellitus with other diabetic kidney complication, without long-term current use of insulin ([facility] [place] [place] V24, [facility] [place] [place] V28) Inject 0.5 mL (7.5 mg total) under the skin every 7 (seven) days. 2 mL 5 08/28/19 Active glucose blood (OneTouch Ultra Test) test strip TEST BLOOD GLUCOSE FOUR TIMES DAILY 400 strip 1 11/04/19 Active buprenorphine (BUTRANS) 7.5 mcg/hour Place 1 patch on the skin 1 (one) time per week. Active atorvastatin (LIPITOR) 40 mg tablet TAKE 1 TABLET BY MOUTH DAILY 90 tablet 1 01/11/20 25 Active atorvastatin (LIPITOR) 40 mg tablet TAKE 1 TABLET BY MOUTH DAILY 90 tablet 1 07/15/19 25 025 Discontinued Active Problems Problem Noted Date Diagnosed Date Opioid abuse ([facility] V24, [facility] [place] [place] V28) 01/29/20 Microalbuminuria 03/26/2022 Synovial cyst of lumbar facet [...] (diabetes mellitus), type 2 with renal complications ([facility] [place] [place] V24, [facility] [place] [place] V28) 08/03/2013 Depression 07/30/2013 Overview (01/21/2024): Psych through [facility] Dr. Gallegos HTN (hypertension) 07/30/2013 Hyperlipidemia 07/30/2013 Obesity 07/30/2013 AARON (obstructive sleep apnea) 07/30/2013 Overview (01/21/2024): On CPAP Testosterone deficiency 07/30/2013 Encounters Date Type Department Care Team Description 01/20/2025 Results Follow-Up Endocrinology [facility] [address] [place] [address] Dyan Torres PA 12/10/2024 1:00 PM EDT Office Visit Internal Medicine - [address] [phone] Jase Hyatt PA Tinnitus of both ears (Primary Dx); Acute midline thoracic back pain; Leg paresthesia 11/19/2024 8:15 AM EDT Office Visit Internal Medicine - [address] [phone] Katt Westfall NP History of hypertension (Primary Dx); Mixed hyperlipidemia; Type 2 diabetes mellitus with other diabetic kidney complication, without long-term current use of insulin ([facility] [place] [place] V24, [facility] [place] [place] V28); Overweight (BMI 25.0-29.9) 11/10/2024 1:00 PM EDT Consult Orthopedic Surgery - [place] [address] [place] [phone] Zo Olivo PA De Quervain's syndrome (tenosynovitis) from Last 3 Months Immunizations Immunization Administration Dates Next Due Influenza trivalent, 0.5mL [...] subun it RSVpreF, 0.5mL, Preservative Free (ABRYSVO) 50yo and older or 32 through 36 wks [...] mellitus), t ype 2 with renal complications ([facility]) Microalbuminuria 03/26/2022 DX:Microalbumin uria Family History Medical [...] Sign Reading Time Taken Comments Blood Pressure 112/60 12/10/2024 1:05 PM EDT Pulse 64 12/10/2024 1:05 PM EDT Temperature 35.9 C (96.6 F) 10/15/2024 7:32 AM EDT Respiratory Rate 16 12/10/2024 1:05 PM EDT Oxygen Saturation 98% 10/01/2024 9:35 AM EDT Inhaled Oxygen Concentration - - Weight 72 kg (158 lb 12.8 oz) 12/10/2024 1:05 PM EDT Height 160 cm (5' 2.99 ) 11/10/2024 12:56 PM EDT Body Mass Index 28.14 11/10/2024 12:56 PM EDT Plan of Treatment Upcoming Encounters Date Type Department Care Team (Late st Contact Info) Description 03/18/2025 7:30 AM EST Office Visit Endocrinology [address] [phone] Dyan Torres PA [address] [place] [address] 05/31/2025 8:30 AM EST Office Visit Internal Medicine - [address] [phone] Felisa Gasca MD [address] [place], [place] Health Maintenance Due Date Last Done Comments Hepatitis A Vaccines (1 of 2 - Risk 2-dose series) 1974 DTaP,Tdap,and Td Vaccines (2 - Td or Tdap) 06/17/2024 06/17/2014 Diabetes: Annual Foot Exam 11/10/2024 11/11/2023 Medicare Annual Wellness Visit 03/05/2025 03/05/2024 Social Influencers of Health Screening 03/05/2025 03/05/2024 Diabetes: Annual Urine Albumin-Creatinine Ratio (uACR) 03/09/2025 03/09/2024, 11/28/2022 Falls Risk Assessment 04/27/2025 04/27/2024, 024 Diabetes: Blood Sugar Control Test (HGBA1C) 07/21/2025 01/20/2025, 09/23/2024, 06/04/2024, Additional history exists Diabetes: Annual Retina Eye Exam 09/15/2025 09/15/2024 Diabetes: Annual GFR (Glomerular Filtration Rate) 12/10/2025 12/10/2024, 11/24/2024, 10/21/2024, Additional history exists Hypertension/CHF/CAD Annual BMP Blood Test 12/10/2025 12/10/2024, 11/24/2024, 10/21/2024, Additional history exists Cholesterol Screening (Lipid Panel) 03/09/2029 03/09/2024, 11/28/2022 Colorectal Cancer Screening: Colonoscopy 08/03/2030 08/03/2020 Hepatitis C Screening Completed 03/10/2017 Zoster Vaccines Completed 08/28/2021, 06/06, 01/19/2014, Additional history exists Abdominal Aortic Aneurysm (AAA) Screen Completed 10/17/2021 Pneumococcal Vaccine: 50+ Years Completed 11/11/2022, 09/18/2021, 12/28/2015, Additional history exists RSV Immunization Adult Patients Completed 11/25/2022 COVID-19 Vaccine Completed 07/01/2024, , 06/27/2023, Additional history exists Depression Screening Completed 12/03/2024, 10/16/19 23 Influenza Vaccine Completed 12/08/2024, , 11/25/2022, Additional history exists HIB Vaccines Aged Out [...] Procedure Name Priority Date/Time Associated Diagnosis Comments HEMOGLOBIN A1C Routine 01/20/2025 8:34 AM EDT Type 2 diabetes mellitus with other diabetic kidney complication, without long-term current use of insulin ([facility] V24, [facility] V28) GARCIA URINE CULTURE TUBE Routine 12/10/2024 1:51 PM EDT Acute midline thoracic back pain URINALYSIS WITH REFLEX MICROSCOPIC AND CULTURE Routine 12/10/2024 1:51 PM EDT Acute midline thoracic back pain LIPASE Routine 12/10/2024 1:51 PM EDT Acute midline thoracic back pain BASIC METABOLIC PANEL Routine 12/10/2024 1:51 PM EDT Acute midline thoracic back pain URINALYSIS WITH REFLEX MICROSCOPIC AND CULTURE Routine 12/10/2024 1:51 PM EDT Acute midline thoracic back pain VITAMIN B12 AND FOLATE Routine 12/10/2024 1:51 PM EDT Leg paresthesia BASIC METABOLIC PANEL Routine 11/24/2024 8:45 AM EDT History of hypertension [place] INJECTION SINGLE TENDON SHEATH OR LIGAMENT APONEUROSIS Routine 11/10/2024 1:00 PM EDT De Quervain's syndrome (tenosynovitis) MICROALBUMIN CREATININE URINE RATIO Routine 03/09/2024 8:56 AM EST Type 2 diabetes mellitus with other diabetic kidney complication, without long-term current use of insulin ([facility] V24, [facility] V28) LIPID PANEL WITH REFLEX TO DIRECT LDL [...] Recently Relevant to Health Maintenance Results * Hemoglobin A1c (01/20/2025 8:34 AM EDT) [facility] Hemoglobin A1C 5.3 <6.5 % LAB CHEMISTRY METHOD 01/20/2025 1:11 PM EDT [facility] Mean Bld Glu Estim. 105 mg/dL LAB CHEMISTRY METHOD 01/20/2025 1:11 PM EDT [facility] Blood Venous blood specimen / Unknown Venipuncture / Unknown 01/20/2025 8:34 AM EDT 01/20/2025 8:34 AM EDT us Dyan OCASIO LAB BLOOD ORDERABLES Final Result [facility] [address] [place] [address], [place] [phone] * (ABNORMAL) Urinalysis with reflex microscopic and culture (12/10/2024 1:51 PM EDT) [facility] Specific Kramer Urine 1.036(H) 1.003 - 1.030 LAB URINALYSIS - AUTOMATED METHOD 12/10/2024 7:03 PM [facility] pH, Urine 6.0 5.0 - 8.0 pH LAB URINALYSIS - AUTOMATED METHOD 12/10/2024 7:03 PM [facility] Leukocytes, Urine Negative Negative LAB URINALYSIS - AUTOMATED METHOD 12/10/2024 7:03 PM [facility] Nitrite, Urine Negative Negative LAB URINALYSIS - AUTOMATED METHOD 12/10/2024 7:03 PM [facility] Protein, Urine 30(A) <=Trace mg/dL LAB URINALYSIS - AUTOMATED METHOD 12/10/2024 7:03 PM [facility] Glucose, Urine Negative Negative mg/dL LAB URINALYSIS - AUTOMATED METHOD 12/10[facility]24 [facility] Ketones, Urine Trace(A) Negative mg/dL LAB URINALYSIS - AUTOMATED METHOD 12/10/2024 7:03 PM [facility] Urobilinogen, Urine 1.0 0.2 - 1.0 mg/dL LAB URINALYSIS - AUTOMATED METHOD 12/10/2024 7:03 PM [facility] Bilirubin, Urine Small(A) Negative LAB URINALYSIS - AUTOMATED METHOD 12/10/2024 7:03 PM [facility] Blood, Urine Negative Negative LAB URINALYSIS - AUTOMATED METHOD 12/10/2024 7:03 PM [facility] RBC, Urine 3.5 0 - 4 /HPF LAB URINALYSIS - AUTOMATED METHOD 12/10/2024 7:03 PM [facility] WBC, Urine 1.7 0 - 4 /HPF LAB URINALYSIS - AUTOMATED METHOD 12/10/2024 7:03 PM [facility] Squamous Epithelial, Urine 22 0 - 60 /LPF LAB URINALYSIS - AUTOMATED METHOD 12/10/2024 7:03 PM [facility] Bacteria, Urine Negative Negative /HPF LAB URINALYSIS - AUTOMATED METHOD 12/10/2024 7:03 PM [facility] Hyaline Casts, Urine 4.0(H) 0 - 3 /LPF LAB URINALYSIS - AUTOMATED METHOD 12/10/2024 7:03 PM [facility] Urine Urine specimen obtained by clean catch procedure / Unknown Non-blood Collection / Unknown 12/10/2024 1:51 PM EDT 12/10/2024 1:51 PM EDT us Jase OCASIO LAB URINE ORDERABLES Fi nal Result [facility] [address] [place] [address], * Garcia urine culture tube (12/10/2024 1:51 PM EDT) [facility] Extra Tube Hold for add-ons. 12/10/2024 7:01 PM EDT [facility] Comment:Auto resulted. Urine Urine specimen obtained by clean catch procedure / Unknown Non-blood Collection / Unknown 12/10/2024 1:51 PM EDT 12/10/2024 1:51 PM EDT Jase OCASIO LAB URINE ORDERABLES Fi nal Result Performing Organization Address [facility]/ZIP Co de Phone Number [facility] [address] [place] [address], [place] [phone] * (ABNORMAL) Vitamin B12 and folate (12/10/2024 1:51 PM EDT) [facility] Vitamin B-12 655 250 - 900 pcg/mL LAB CHEMISTRY METHOD 12/10/2024 9:58 PM EDT [facility] Folate >20.0(H) 2.8 - 17.0 ng/ml LAB CHEMISTRY METHOD 12/10/2024 9:58 PM EDT [facility] Blood Venous blood specimen / Unknown Venipuncture / Unknown 12/10/2024 1:51 PM EDT 12/10/2024 1:51 PM EDT Jase OCASIO LAB BLOOD ORDERABLES Fi nal Result [facility] [address] [place] [address], [place] [phone] * Lipase (12/10/2024 1:51 PM EDT) [facility] Lipase 28 13 - 75 unit/L LAB CHEMISTRY METHOD 12/10/2024 7:54 PM EDT [facility] Blood Venous blood specimen / Unknown Venipuncture / Unknown 12/10/2024 1:51 PM EDT 12/10/2024 1:51 PM EDT Jase OCASIO LAB BLOOD ORDERABLES Fi nal Result [facility] [address] [place] [address], [place] [phone] * Basic metabolic panel (12/10/2024 1:51 PM EDT) Only the most recent of2 resultswithin the time period is included. Pathologist [facility] Sodium 137 133 - 145 mmol/L LAB CHEMISTRY METHOD 12/10/2024 7:54 PM [facility] Potassium 4.1 3.5 - 5.5 mmol/L LAB CHEMISTRY METHOD 12/10/2024 7:54 PM [facility] Chloride 102 96 - 110 mmol/L LAB CHEMISTRY METHOD 12/10/2024 7:54 PM [facility] CO2 30 21 - 32 mmol/L LAB CHEMISTRY METHOD 12/10/2024 7:54 PM [facility] Anion Gap 5 3 - 11 LAB CHEMISTRY METHOD 12/10/2024 7:54 PM [facility] Glucose 90 70 - 100 mg/dL LAB CHEMISTRY METHOD 12/10/2024 7:54 PM [facility] BUN 15 5 - 25 mg/dL LAB CHEMISTRY METHOD 12/10/2024 7:54 PM [facility] Creatinine 0.74 0.70 - 1.30 mg/dL LAB CHEMISTRY METHOD 12/10/2024 7:54 PM [facility] eGFR 97 >=60 mL/min/1. 73m2 LAB CHEMISTRY METHOD 12/10/2024 7:54 PM [facility] Comment:Calculation based on the Chronic Kidney Disease Epidemiology Collaboration (CKD-EPI) equation refit without adjustment for race. BUN/Creatinine Ratio 20.3 LAB CHEMISTRY METHOD 12/10/2024 7:54 PM EDT [facility] Calcium 8.5 8.5 - 10.5 mg/dL LAB CHEMISTRY METHOD 12/10/2024 7:54 PM EDT [facility] Blood Venous blood specimen / Unknown Venipuncture / Unknown 12/10/2024 1:51 PM EDT 12/10/2024 1:51 PM EDT Jase OCASIO LAB BLOOD ORDERABLES Fi nal Result [facility] [address] [place] [address], [place] [phone] * [place] INJECTION SINGLE TENDON SHEATH OR LIGAMENT APONEUROSIS (11/10/2024 1:00 PM EDT) Narrative Zo Olivo PA - 11/10/2024 1:00 PM EDT NINFA Justice 11/10/2024 1:29 PM Hand / UE Inj/Asp: R extensor compartment 1 for de Quervain's tenosynovitis Indications: pain Details: 25 G needle, dorsal approach Medications: 0.5 mL lidocaine 1 %; 4 mg dexAMETHasone 4 mg/mL Informed Consent: Laterality: Right Relevant images/test results available and reviewed: yes Health status cleared: Yes Procedure/treatment, purpose, treatment alternatives, risks/potential complications and benefits explained: yes Risk/complications/benefits details: Risks of infection, thinning of the skin and temporary skin discoloration discussed. Discussed risks of temporary increased pain after injection and swelling and mild redness at injection site for couple days. Explained occasionally cortisone injection can cause facial flushing temporarily. Benefits pain management. For postop injection pain ice, Tylenol and/or NSAIDs if patient can take Patient questions answered: yes Patient agrees, verbalizes understanding, and wants to proceed: yes Consent given by: Patient Informed consent discussion completed by Physician/DANIELE with patient: Verbal Pre-procedure timeout performed: yes Zo OCASIO IN CLINIC/BEDSIDE ORDERABLES Final Result * (ABNORMAL) Lipid panel with reflex to direct LDL (03/09/2024 8:56 AM EST) Cholesterol 190 0 - 200 mg/dL LAB CHEMISTRY METHOD 03/09/2024 12:28 PM [facility] Triglycerides 132 0 - 150 mg/dL LAB CHEMISTRY METHOD 03/09/2024 12:28 PM [facility] HDL 47 >=40 mg/dL LAB CHEMISTRY METHOD 03/09/2024 12:28 PM [facility] LDL Calculated 117(H) 0 - 100 mg/dL LAB CHEMISTRY METHOD 03/09/2024 12:28 PM [facility] VLDL Cholesterol Juan David 26.4 mg/dL LAB CHEMISTRY METHOD 03/09/2024 12:28 PM [facility] Non HDL Chol. (LDL+VLDL) 143 <145 mg/dL LAB CHEMISTRY METHOD 03/09/2024 12:28 PM [facility] Chol/HDL Ratio 4.0 0.0 - 4.4 LAB CHEMISTRY METHOD 03/09/2024 12:28 PM [facility] Blood Venous blood specimen / Unknown Venipuncture / Unknown 03/09/2024 8:56 AM EST 03/09/2024 8:56 AM EST us Caprice Bustos DO LAB BLOOD ORDERABLES Final Res ult [facility] [address] [place] [address], * Microalbumin creatinine urine ratio (03/09/2024 8:56 AM EST) Creatinine, Urine 98.0 mg/dL LAB CHEMISTRY METHOD 03/09/2024 1:43 PM [facility] Microalb, Ur 6.1 0.0 - 29.0 mg/L LAB CHEMISTRY METHOD 03/09/2024 1:43 PM [facility] Microalb/Creat Ratio 6 <30 mg/g creat LAB CHEMISTRY METHOD 03/09/2024 1:43 PM EST [facility] Urine Urine specimen obtained by clean catch procedure / Unknown Non-blood Collection / Unknown 03/09/2024 8:56 AM EST 03/09/2024 8:56 AM EST Caprice Bustos DO LAB URINE ORDERABLES Final Res ult [facility] [address] [place] [address], [place] [phone] * Falls Risk Assessment (11/11/2023) Falls Risk Assessment Abstracted [facility] Provider MD HEALTH MAINTENANCE Final Result * Diabetes Foot Exam (11/11/2023) Diabetes: Annual Foot Exam Abstracted [facility] Provider MD HEALTH MAINTENANCE Final Result * Depression Screening (10/15/2022) Depression Screening Abstracted [facility] Provider MD HEALTH MAINTENANCE Final Result * US ABDOMINAL [...] IMPRESSION: IMPRESSION: No visualized abdominal aortic aneurysm. us Jaleesa Yang MD IMG US PROCEDURES Final Result * Hepatitis C Screening (03/10/2017) Hepatitis C Screening Abstracted Historical Provider HEALTH MAINTENANCE Final Result from Last 3 Months or Most Recently Relevant to Health Maintenance Insurance [employer] MEDICARE Care Teams Amortization Schedule Clerk Relationship Specialty Start Date End Date Caprice Bustos DO [address] [place] [address] PCP - General 01/19/24
== END 2025-02-08 12:22 | disposition home or self-care (01) ==
LOC: HO.HOP 10:34
PROVIDERS: PCP Family Medicine; Visit Provider Psychiatry & Neurology Psychiatry
DX: F32.4 Major depressive disorder, single episode, in partial remission (principal); F41.1 Generalized anxiety disorder; F98.8 Other specified behavioral and emotional disorders with onset usually occurring in childhood and adolescence
CPT/HCPCS: 90833; 99213

== ENCOUNTER → 2025-02-08 10:34 | Outpatient (BNVA) | payer MEDICARE, SELFPAY | PROVIDERS: PCP Family Medicine; Visit Provider Psychiatry & Neurology Psychiatry | DX: F32.4 Major depressive disorder, single episode, in partial remission (principal); F41.1 Generalized anxiety disorder; F98.8 Other specified behavioral and emotional disorders with onset usually occurring in childhood and adolescence | CPT/HCPCS: 99212 ==